=== PATIENT | female | born 1960 | race Caucasian/White ===

== ENCOUNTER → 2017-06-29 08:48 | Outpatient (CLI) | payer MEDICARE, MEDICAID, SELFPAY ==
--- NOTE | 2017-06-29 | DI.MRI.S_ITS ---
PROCEDURE: MR FOOT RT WO CON INDICATIONS: RIGHT FOOT FRACTURE OF SECOND METATARSAL BONE TECHNIQUE: Noncontrast sagittal T1 spin echo and T2 fast spin echo with fat saturation, long-axis T1 spin echo and T2 fast spin echo with fat saturation, short-axis T1 spin echo and T2 fast spin echo with fat saturation through the forefoot. COMPARISON: [facility], CR, XR FOOT 3+ VIEWS RIGHT, 01/27/2017, 10:00. FINDINGS: Image quality: Diagnostic. Bones and joints: No acute fracture, dislocation, or suspicious osseous lesion is identified involving the forefoot or midfoot structures. However, there are moderate degenerative changes noted involving the tarsometatarsal joints. There also are mild degenerative changes involving the tarsonavicular joint. There are mild degenerative changes present involving the 1st metatarsophalangeal joint. No hallux valgus deformity is evident. Bony alignment is within normal limits. No significant joint effusions are identified. Soft tissues: The visualized plantar foot muscles demonstrate normal signal and bulk. Visualized flexor and extensor tendons appear intact, without tenosynovitis. The distal insertions of the peroneus brevis and longus tendons appear intact. No loculated fluid collections or ganglion cysts are evident. No soft tissue masses are evident. The Lisfranc ligament is not well seen on this examination and may be scarring or completely torn. IMPRESSION: 1. Moderate degenerative changes of the midfoot joints. 2. No acute fracture. Dictated by: Dillon Flynn M.D. on 06/29/2017 at 15:26 Approved by: Dillon Flynn M.D. on 06/29/2017 at 15:31
== END ==
PROVIDERS: Family Provider Physician Assistant; PCP Physician Assistant; Visit Provider Podiatrist
DX: S92.321A Displaced fracture of second metatarsal bone, right foot, initial encounter for closed fracture (principal); M19.071 Primary osteoarthritis, right ankle and foot
CPT/HCPCS: 73718

== ENCOUNTER → 2018-03-03 07:00 | Outpatient (CLI) | payer MEDICARE, MEDICAID, SELFPAY ==
[2018-03-03 08:46] LABS: Add Manual Diff / Slide Review NO; Basophils Absolute Auto 0 /uL (0-100); Eosinophils Absolute Auto 0 /uL (0-450); Hematocrit 41.6 % (36-46); Hemoglobin 13.4 g/dL (12.0-16.0); Lymphocytes Absolute Auto 1500 /uL (1100-4500); Mean Corpuscular HGB Conc 32.3 % (30-36); Mean Corpuscular Hemoglobin 25.6 PG (26-34); Mean Corpuscular Volume 79.2 fL (80-100); Monocytes Absolute Auto 500 /uL (0-900); Monocytes Percent Auto 6.2 % (3-14); Neutrophils Absolute Auto 6100 /uL (1500-7000); Neutrophils Percent Auto 74.8 % (50-75); Platelet Count 452 X10^3/uL (150-400); Red Blood Cell Count 5.25 X10^6/uL (4.0-5.2); Red Cell Distribution Width 15.5 % (11.6-14.8); White Blood Cell Count 8.1 X10^3/uL (4.5-11.0)
[2018-03-03 09:43] LABS: Alanine Aminotransferase 31 IU/L (9-52); Albumin 4.5 g/dL (3.5-5.0); Albumin Globulin Ratio 1.6 (1.0-2.8); Alkaline Phosphatase 86 U/L (38-126); Aspartate Aminotransferase 18 IU/L (14-36); Bilirubin Total 0.3 mg/dL (0.2-1.3); Blood Urea Nitrogen 11 mg/dL (7-17); Calcium 9.8 mg/dL (8.4-10.2); Carbon Dioxide 27 mmol/L (22-32); Chloride 101 mmol/L (98-107); Cholesterol 175 mg/dL (140-199); Estimated Glomerular Filt Rate > 60.0 mL/min (>60); Globulin 2.8 g/dL (1.7-4.1); Glucose 102 mg/dL (70-100); HDL Cholesterol 46 mg/dL (40-60); HEMOLYSIS < 15 (0-50); LDL Cholesterol Calculated 104 mg/dL (<100); Potassium 4.6 mmol/L (3.4-5.1); Sodium 140 mmol/L (137-145); Total Protein 7.3 g/dL (6.3-8.2); Triglycerides 125 mg/dL (35-150); Uric Acid 4.6 mg/dL (2.5-6.2)
== END ==
PROVIDERS: Family Provider Physician Assistant; PCP Physician Assistant; Visit Provider Physician Assistant
DX: E78.5 Hyperlipidemia, unspecified (principal); E79.0 Hyperuricemia without signs of inflammatory arthritis and tophaceous disease
CPT/HCPCS: 36415; 80053; 80061; 84550; 85025

== ENCOUNTER 2018-04-29 09:46 | Emergency (ER) | payer MEDICARE, MEDICAID, SELFPAY ==
--- NOTE | 2018-04-29 09:30 | PC.NURSE ---
per Rosey Alberts pt possibly over medicated self. pt taking cbd oil to wean off vicodin, took both vicodin and cbd oil, then took baclofen, and unisome last michael. today per rosey pt c/o dizziness, feeling dehydrated, pale, slow speech.
[2018-04-29 09:48] VITALS: BP 144/70; PULSE 56; RESP 13; TEMP 36.4; O2SAT 100; BMI 31.1
--- NOTE | 2018-04-29 09:53 | ED.GENADULT ---
HPI - General Adult General Chief complaint: Dizziness Stated complaint: dizziness, accidental overdose of home meds Time Seen by Provider: 04/29/18 09:51 Source: patient Mode of arrival: wheelchair Limitations: no limitations History of Present Illness HPI narrative: A 57-year-old female sent over from her primary doctor's office for evaluation. She went to go see her primary provider today because this morning she was feeling ?dizzy? she states that last evening she took 17.5 mg of Vicodin, couple hours later she took CBD oil, couple hours later she took an [id number] sleeping aid which she states was equivalent to Unisom, couple hours later she took baclofen. She states she woke up at 0300 hr in the morning to use the restroom and she felt very ?dizzy? she states that it was a room spinning sensation. She did make it to the bathroom and urinated. She sat on the toilet and the symptoms resolved. When she got back into bed the symptoms returned. She did go back to sleep. Woke up again this morning and felt dizzy. Since that time she states that her symptoms have greatly improved. She reports no other symptoms at the time of the dizziness. Related Data Home Medications Medication Instructions Recorded Confirmed Doxylamine Succinate (#SLEEP AID) 25 mg PO BEDTIME PRN #0 12/10/11 04/29/18 fexofenadine 180 mg PO DAILY #0 05/06/17 04/29/18 pseudoephedrine HCl 30 mg PO DAILY #0 05/06/17 04/29/18 CBD Oil See Rx Instructions .ROUTE .COMPLEX 03/02/18 04/29/18 calcium carbonate-vitamin D3 600 1 cap PO DAILY 03/02/18 04/29/18 mg calcium-200 unit capsule multivitamin tablet 1 tab PO MOWEFR tab 03/02/18 04/29/18 allopurinol 100 mg PO QPM 04/29/18 04/29/18 aspirin 81 mg PO BEDTIME 04/29/18 04/29/18 hydrocodone-acetaminophen 1 tab PO QPM 04/29/18 04/29/18 ranitidine HCl [Zantac] 150 mg PO BID 04/29/18 04/29/18 Previous Rx's Medication Instructions Recorded baclofen 10 mg tablet 10 mg PO BEDTIME PRN #90 tab 10/07/17 conjugated estrogens 0.625 mg/gram 1 applictn VAGINAL 2XW #30 gram 10/29/17 vaginal cream Allergies Allergy/AdvReac Type Severity Reaction Status Date / Time Sulfa (Sulfonamide Allergy Severe Possible Verified 04/29/18 09:48 Antibiotics) due to [SULFA (SULFONAMIDE Celebrex ANTIBIOTICS)] allergy fenofibrate [FENOFIBRATE] Allergy Intermediate Rash Verified 04/29/18 09:48 latex Allergy Mild ITCHING Verified 04/29/18 09:48 red yeast rice Allergy Mild Rash Verified 04/29/18 09:48 [RED YEAST RICE] external genital area adhesive AdvReac Severe REDNESS, Verified 04/29/18 09:48 ITCHING AND BLISTERS FROM ADHESIVE TAPE montelukast AdvReac Intermediate SORES IN Verified 04/29/18 09:48 MY MOUTH AND NOSTRIL CAT DANDER Allergy Intermediate ITCHY Uncoded 04/29/18 09:48 WATER EYES, CONGESTION, RUNNY NOSE Review of Systems Constitutional Denies fever(s), Denies headache(s) and Denies weakness Eyes Denies blurry vision, Denies change in vision, Denies diplopia and Denies loss of vision ENT Ears, Nose, Mouth, and Throat: Reports vertigo, Reports dizziness, Reports dry mouth, Denies facial pain, Denies headache(s), Reports disequilibrium and Denies sore throat Cardiovascular Denies chest pain, Denies syncope, Denies rapid heart rate, Denies edema, Reports lightheadedness, Denies palpitations and Denies dyspnea Respiratory Denies cough and Denies dyspnea Gastrointestinal Gastrointestinal: Denies abdominal pain, Denies nausea and Denies vomiting Genitourinary Denies dysuria Musculoskeletal Denies myalgias, Denies arthralgias, Denies numbness and Denies tingling Integumentary/Breasts Denies rash Neurologic Denies confusion, Reports vertigo, Reports dizziness, Denies syncope, Denies headache(s), Denies focal weakness, Denies loss of vision, Denies numbness, Denies radicular pain, Denies restless legs, Denies seizure-like activity, Denies tingling, Denies paresthesias, Reports disequilibrium and Denies weakness Psychiatric Denies confusion Endocrine Denies palpitations Hematologic/Lymphatic Denies easy bleeding and Denies easy bruising Allergic/Immunologic Denies urticaria [facility] Medical History Hyperlipidemia (Chronic 04/26/14) Osteoarthritis, generalized (Chronic) Obesity (Chronic) Esophageal dysmotility (Chronic 08/28/15) Elevated uric acid in blood (Resolved) GERD (gastroesophageal reflux disease) (Chronic Unknown) Speech disturbance (Chronic Unknown) Allergic rhinitis due to cat hair (Resolved) Bursitis (Resolved Unknown) Cholecystitis (Resolved Unknown) History of migraine (Resolved ~2001) Plantar fasciitis (Resolved Unknown) Smallpox (Resolved) Surgical History Hx of cholecystectomy (Resolved Unknown) Hx of knee surgery (Resolved Unknown) Hx of total hysterectomy (Resolved Unknown) History of tonsillectomy Social History Smoking Status: Former smoker Tobacco: How many years used: 13 second hand exposure: No alcohol intake: current (only on special occasions.) substance use type: does not use Social History Smoking Status: Former smoker Tobacco: How many years used: 13 second hand exposure: No alcohol intake: current (only on special occasions.) substance use type: does not use Exam Initial Vital Signs Initial Vital Signs: Vital Signs Temperature 97.6 F 04/29/18 09:48 Pulse Rate 56 L 04/29/18 09:48 Respiratory Rate 13 04/29/18 09:48 Blood Pressure 144/70 H 04/29/18 09:48 Pulse Oximetry 100 04/29/18 09:48 Const General: cooperative, healthy appearing, comfortable, well developed, well groomed and No acute distress Orientation: alert, awake and oriented x3 HENMT Head: normal to inspection, normocephalic and atraumatic Nose: external nose normal Face and sinus: normal facial exam Mouth: oral mucosae normal Eyes Pupils: PERRL EOM: EOM intact bilaterally Resp Effort & Inspection: normal respiratory effort Auscultation: clear to auscultation bilaterally Cardio Rate: regular rate Rhythm: regular rhythm Pulses: radial pulses present GI Inspection: non-distended Palpation: soft and No firm Skin Lesions: no lesions Rashes: no rashes Neuro General: alert, awake and oriented x3 Cranial Nerves: CN's II-XI intact bilaterally Cognition: normal cognition Speech: speech normal Motor: muscle tone normal throughout Sensory Exam: no sensory deficits noted Coordination: [id number] test normal and [id number]-ry-[id number] test normal Extrem General: normal to inspection and capillary refill normal Psych Appearance: grossly normal and well kempt Scores GCS [place] coma scale eye opening: Spontaneous [place] coma scale verbal response: Orientated [place] coma scale motor response: Obey commands [place] coma scale total score: 15 NIH Stroke Scale Level of Conciousness: Alert, keenly responsive Ask month/age: Answers both questions correctly. Open/close eyes, close hand: Performs both tasks correctly Best gaze horizontal: Normal Visual marie: No visual loss Facial palsy: Normal symetrical movement Left arm drift: No drift for full 10 sec Right arm drift: No drift for full 10 sec Left leg drift: No drift for full 10 sec Right leg drift: No drift for full 10 sec Limb ataxia: Absent Sensory on face/arms/legs: Normal, no sensory loss Best language: No aphasia, normal Dysarthria: Normal Extinction or inattention: No abnormality Total NIH Stroke scale score: 0 Course Orders Ordered: ED Orders 04/29/18 09:46 EKG-12 Lead Stat 04/29/18 11:27 Acetaminophen Stat Complete Blood Count AUTO DIFF Stat Comprehensive Metabolic Panel Stat Ethanol (ETOH) Stat Lipase Stat Troponin I Stat Discontinued Medications Sodium Chloride (Normal Saline 0.9%) 1,000 mls @ 1,000 mls/hr IV BOLUS ONE Stop: 04/29/18 10:50 Last Admin: 04/29/18 11:15 Dose: Not Given Vital Signs - 8 hr 04/29/18 09:48 04/29/18 11:42 04/29/18 12:17 Temperature 97.6 F Pulse Rate 56 L 59 L 64 Respiratory Rate 13 18 16 Blood Pressure 144/70 H Blood Pressure [Right Arm] 115/77 106/76 Pulse Oximetry 100 96 98 Medical Decision Making Lab Data Lab results reviewed: Yes I reviewed the patient's lab results. Result diagrams: 04/29/18 11:27 04/29/18 11:27 Lab Results 04/29/18 04/29/18 Range/Units 11:27 11:27 WBC 6.7 (4.5-11.0) X10^3/uL RBC 5.05 (4.0-5.2) X10^6/uL Hgb 12.7 (12.0-16.0) g/dL Hct 39.3 (36-46) % MCV 77.9 L (80-100) fL MCH 25.2 L (26-34) PG MCHC 32.4 (30-36) % RDW 15.6 H (11.6-14.8) % Plt Count 406 H (150-400) X10^3/uL Neut % (Auto) 77.4 H (50-75) % Lymph % (Auto) 16.6 L (25-40) % [place] % (Auto) 5.8 (3-14) % Eos % (Auto) 0.0 L (2-4) % Baso % (Auto) 0.2 (0-2) % Neut # (Auto) 5200 (3104-3700) /uL Lymph # (Auto) 1100 (3060-2026) /uL [place] # (Auto) 400 (0-900) /uL Eos # (Auto) 0 (0-450) /uL Baso # (Auto) 0 (0-100) /uL Sodium 138 (137-145) mmol/L Potassium 3.9 (3.4-5.1) mmol/L Chloride 99 (98-107) mmol/L Carbon Dioxide 26 (22-32) mmol/L BUN 7 (7-17) mg/dL Creatinine 0.50 L (0.52-1.04) mg/dL Estimated GFR > 60.0 (>60) mL/min BUN/Creatinine Ratio 14.0 (6-22) Glucose 91 (70-100) mg/dL Calcium 9.5 (8.4-10.2) mg/dL Total Bilirubin 0.6 (0.2-1.3) mg/dL AST 18 (14-36) IU/L ALT 30 (9-52) IU/L Alkaline Phosphatase 83 (38-126) U/L Troponin I < 0.012 (0.01-0.034) ng/mL Total Protein 7.6 (6.3-8.2) g/dL Albumin 4.4 (3.5-5.0) g/dL Globulin 3.2 (1.7-4.1) g/dL Albumin/Globulin Ratio 1.4 (1.0-2.8) Lipase 108 (23-300) U/L Acetaminophen < 10 L (10-30) ug/mL Ethyl Alcohol < 10 mg/dL ECG Data Attestation: I personally reviewed and interpreted this ECG as follows: Prior ECG tracings: not available for review Interpretation: Sinus bradycardia Ventricular rate of 52 Normal axis Normal QRS Normal QTC Nonspecific ST T wave changes MDM Narrative Medical decision making narrative: The patient initially requested IV fluids but then asked if we could not do an IV in that she could orally hydrate. She was able to tolerate oral intake. Her labs are unremarkable. She was able to ambulate around the emergency department to the bathroom with minimal problems. She states she feels much better than when she did last evening. Will hold on further workup for now. I do suspect that her symptoms were related to the multiple sedating medication that she took last evening. Patient was instructed to stop her reduce these medications. She was given return precautions. She expressed understanding and agreement with plan. Discharge Plan Departure Patient Disposition: Home Clinical Impression: Dizziness Instructions: DI for Dizziness-Nonvertigo Activity Restrictions/Additional Instructions: I do recommend that you to limit the amount of sedating medications that your taking. Contact your primary care doctor for follow-up. Return to the emergency department for any new or worsening symptoms Prescriptions: No Action multivitamin tablet 1 tab PO MOWEFR RF: 0 Calcium 600 + D(3) 600 mg calcium- 200 unit Capsule 1 cap PO DAILY RF: 0 CBD Oil See Patient Comments .ROUTE .COMPLEX RF: 0 Doxylamine Succinate (#SLEEP AID) 25 mg PO BEDTIME PRN (Reason: Insomnia) Qty: 0 RF: 0 fexofenadine 180 MG tablet 180 mg PO DAILY Qty: 0 RF: 0 pseudoephedrine HCl 30 MG tablet 30 mg PO DAILY Qty: 0 RF: 0 baclofen 10 mg tablet 10 mg PO BEDTIME PRN (Reason: muscle spasm) Qty: 90 RF: 1 conjugated estrogens [Premarin] 0.625 mg/gram cream 1 applictn Vaginal 2XW Qty: 30 RF: 3 allopurinol 100 mg tablet 100 mg PO QPM RF: 0 ranitidine HCl [Zantac] 150 mg tablet 150 mg PO BID RF: 0 aspirin 81 mg Tablet,Delayed Release (Dr/Ec) 81 mg PO BEDTIME RF: 0 hydrocodone-acetaminophen 7.5-325 mg tablet 1 tab PO QPM RF: 0 Referrals: Juliana Alberts PA-C [Primary Care Provider] -
--- NOTE | 2018-04-29 11:12 | PC.NURSE ---
Went in to establish PIV, pt questioned if it was necessary. Educated pt, pt states she would prefer blood draw only. Spoke with Dr. Laureano. He agrees with plan. Pt given PO fluids.
[2018-04-29 11:37] LABS: Add Manual Diff / Slide Review NO; Basophils Absolute Auto 0 /uL (0-100); Basophils Percent Auto 0.2 % (0-2); Eosinophils Absolute Auto 0 /uL (0-450); Hematocrit 39.3 % (36-46); Hemoglobin 12.7 g/dL (12.0-16.0); Lymphocytes Absolute Auto 1100 /uL (1100-4500); Lymphocytes Percent Auto 16.6 % (25-40); Mean Corpuscular HGB Conc 32.4 % (30-36); Mean Corpuscular Hemoglobin 25.2 PG (26-34); Mean Corpuscular Volume 77.9 fL (80-100); Monocytes Absolute Auto 400 /uL (0-900); Monocytes Percent Auto 5.8 % (3-14); Neutrophils Absolute Auto 5200 /uL (1500-7000); Neutrophils Percent Auto 77.4 % (50-75); Platelet Count 406 X10^3/uL (150-400); Red Blood Cell Count 5.05 X10^6/uL (4.0-5.2); Red Cell Distribution Width 15.6 % (11.6-14.8); White Blood Cell Count 6.7 X10^3/uL (4.5-11.0)
[2018-04-29 11:42] VITALS: BP 115/77; PULSE 59; RESP 18; O2SAT 96
[2018-04-29 11:47] LABS: Acetaminophen < 10 ug/mL (10-30); Alanine Aminotransferase 30 IU/L (9-52); Albumin 4.4 g/dL (3.5-5.0); Albumin Globulin Ratio 1.4 (1.0-2.8); Alkaline Phosphatase 83 U/L (38-126); Aspartate Aminotransferase 18 IU/L (14-36); Bilirubin Total 0.6 mg/dL (0.2-1.3); Blood Urea Nitrogen 7 mg/dL (7-17); Calcium 9.5 mg/dL (8.4-10.2); Carbon Dioxide 26 mmol/L (22-32); Chloride 99 mmol/L (98-107); Estimated Glomerular Filt Rate > 60.0 mL/min (>60); Ethanol (ETOH) < 10 mg/dL; Globulin 3.2 g/dL (1.7-4.1); Glucose 91 mg/dL (70-100); HEMOLYSIS < 15 (0-50); Lipase 108 U/L (23-300); Potassium 3.9 mmol/L (3.4-5.1); Sodium 138 mmol/L (137-145); Total Protein 7.6 g/dL (6.3-8.2)
[2018-04-29 11:58] LABS: Troponin I < 0.012 ng/mL (0.01-0.034)
[2018-04-29 12:17] VITALS: BP 106/76; PULSE 64; RESP 16; O2SAT 98
[2018-04-29 13:15] VITALS: BP 125/74; PULSE 75; RESP 15; O2SAT 97
== END 2018-04-29 13:16 | disposition home or self-care (01) ==
PROVIDERS: Emergency Provider Emergency Medicine; PCP Physician Assistant
DX: R42 Dizziness and giddiness (principal); T50.991A Poisoning by other drugs, medicaments and biological substances, accidental (unintentional), initial encounter
CPT/HCPCS: 36415; 80053; 80320; 80329; 83690; 84484; 85025; 93005; 99283; 99284; G0480

== ENCOUNTER → 2018-05-20 09:56 | Outpatient (CLI) | payer MEDICARE, MEDICAID, SELFPAY ==
--- NOTE | 2018-05-20 | DI.MG.S_ITS ---
BILATERAL DIGITAL SCREENING MAMMOGRAM 3D/2D WITH CAD: 05/20/2018 CLINICAL: Routine screening. Comparison is made to exams dated: 05/08/2017 mammogram, 05/15/2010 mammogram - [facility], and 11/23/2001 mammogram - [facility]. There are scattered fibroglandular elements in both breasts. Current study was also evaluated with a Computer Aided Detection (CAD) system. There are benign calcifications in both breasts. No significant masses, calcifications, or other findings are seen in either breast. There has been no significant interval change. IMPRESSION: There is no mammographic evidence of malignancy. A 1 year screening mammogram is recommended. This exam was interpreted at Station ID: [id number]. NOTE: For mammograms, a report in lay terms will be sent to the patient. Approximately 15% of breast malignancies will not be visualized mammographically. In the management of a palpable breast mass, a negative mammogram must not discourage biopsy of a clinically suspicious lesion. Electronically Signed By: Clayton cortez/cely:05/20/2018 12:06:36 letter sent: Normal Exam ACR BI-RADS Category 2: Benign Finding(s) 3342F
[2018-05-23 20:50] LABS: Fecal Immunochemical Test NOT DETECTED (NOT DETECTED)
== END ==
PROVIDERS: PCP Physician Assistant; Visit Provider Physician Assistant
DX: Z12.31 Encounter for screening mammogram for malignant neoplasm of breast (principal); Z12.11 Encounter for screening for malignant neoplasm of colon
CPT/HCPCS: 77063; 77067; 82274

== ENCOUNTER → 2018-06-08 09:57 | Outpatient (CLI) | payer MEDICARE, MEDICAID, SELFPAY ==
[2018-06-08 11:12] LABS: Add Manual Diff / Slide Review NO; Basophils Absolute Auto 0 /uL (0-100); Eosinophils Absolute Auto 0 /uL (0-450); Hematocrit 38.1 % (36-46); Hemoglobin 12.7 g/dL (12.0-16.0); Lymphocytes Absolute Auto 1300 /uL (1100-4500); Lymphocytes Percent Auto 20.3 % (25-40); Mean Corpuscular HGB Conc 33.2 % (30-36); Mean Corpuscular Hemoglobin 25.6 PG (26-34); Mean Corpuscular Volume 77.1 fL (80-100); Monocytes Absolute Auto 500 /uL (0-900); Monocytes Percent Auto 7.4 % (3-14); Neutrophils Absolute Auto 4500 /uL (1500-7000); Neutrophils Percent Auto 72.3 % (50-75); Platelet Count 431 X10^3/uL (150-400); Red Blood Cell Count 4.95 X10^6/uL (4.0-5.2); Red Cell Distribution Width 16.9 % (11.6-14.8); White Blood Cell Count 6.2 X10^3/uL (4.5-11.0)
== END ==
PROVIDERS: PCP Physician Assistant; Visit Provider Allergy & Immunology
DX: L23.89 Allergic contact dermatitis due to other agents (principal); R79.89 Other specified abnormal findings of blood chemistry
CPT/HCPCS: 85025; 86003

== ENCOUNTER 2018-06-20 11:25 | Emergency (ER) | payer MEDICARE, MEDICAID, SELFPAY ==
[2018-06-20 12:06] VITALS: BP 122/78; PULSE 74; RESP 13; TEMP 36.9; O2SAT 97
[2018-06-20 13:30] VITALS: BP 104/67; PULSE 76; RESP 16; O2SAT 100
--- NOTE | 2018-06-20 13:55 | ED.DIZZY ---
HPI - Dizziness <Daisy Renner, [employer]-BC - Last Filed: 06/20/18 22:16> General Chief Complaint: Dizziness Stated Complaint: Feeling dizzy, thinks meds Time Seen by Provider: 06/20/18 13:40 Source: patient Mode of arrival: ambulatory Limitations: no limitations History of Present Illness HPI Narrative: the patient is a 57-year-old female former smoker who presents with a chief complaint of dizziness and not feeling well since April. She states she thinks it is related to her allergy medications. She was recently started on a burst of prednisone and is on day 4. She states that she started taking activated charcoal pills in order to help detox for medications from her system yesterday. She complains of a generalized foggy feeling. She states that she did not have a specific impetus for her urgency department visit today. Rather she is just frustrated with not feeling well and being very anxious for the past several months since this started. She has followed up with her chemist enzymes several times, but is not seen her primary care provider since onset of this several months ago. She denies any chest pain, but does state some chest discomfort earlier today, which she attributes to anxiety. she denies any dysuria urgency or frequency. She denies any shortness of breath or congestion. She states that the room was not spinning. She denies any syncopal or near syncopal episodes. Related Data Home Medications Medication Instructions Recorded Confirmed CBD Oil See Rx Instructions .ROUTE .COMPLEX 03/02/18 06/25/18 calcium carbonate-vitamin D3 600 1 cap PO DAILY 03/02/18 06/25/18 mg calcium-200 unit capsule multivitamin tablet 1 tab PO MOWEFR tab 03/02/18 06/25/18 allopurinol 100 mg PO QPM 04/29/18 06/25/18 aspirin 81 mg PO BEDTIME 04/29/18 06/25/18 hydrocodone-acetaminophen 1 tab PO QPM 04/29/18 06/25/18 ranitidine HCl [Zantac] 150 mg PO BID 04/29/18 06/25/18 melatonin 5 mg capsule 5 mg PO BEDTIME cap 06/23/18 06/25/18 Previous Rx's Medication Instructions Recorded conjugated estrogens 0.625 mg/gram 1 applictn VAGINAL 2XW #30 gram 05/12/18 vaginal cream dexlansoprazole 30 mg 30 mg PO DAILY #30 cap 06/24/18 capsule,biphase delayed release Allergies Allergy/AdvReac Type Severity Reaction Status Date / Time Sulfa (Sulfonamide Allergy Severe Possible Verified 06/25/18 16:05 Antibiotics) due to [SULFA (SULFONAMIDE Celebrex ANTIBIOTICS)] allergy fenofibrate [FENOFIBRATE] Allergy Intermediate Rash Verified 06/25/18 16:05 red yeast rice Allergy Mild Rash Verified 06/25/18 16:05 [RED YEAST RICE] external genital area adhesive AdvReac Severe REDNESS, Verified 06/25/18 16:05 ITCHING AND BLISTERS FROM ADHESIVE TAPE montelukast AdvReac Intermediate SORES IN Verified 06/25/18 16:05 MY MOUTH AND NOSTRIL latex AdvReac Mild ITCHING Verified 06/25/18 16:05 CAT DANDER Allergy Intermediate ITCHY Uncoded 06/25/18 16:05 WATER EYES, CONGESTION, RUNNY NOSE Tree pollen Allergy Intermediate Birch/Anahi Uncoded 06/25/18 16:05 trees - Runny/Itchy nose/Eye irritation. Review of Systems <NINFA Tol[place] - Last Filed: 06/20/18 22:16> Review of Systems GENERAL: See HPI HEENT: Denies sinus pain, ear pain, sore throat, difficulty swallowing, dizziness. RESPIRATORY: Denies dyspnea, cough, wheezing, hemoptysis, sputum. CARDIOVASCULAR: Denies chest pain, palpitations, orthopnea, edema, GASTROINTESTINAL: Denies nausea, vomiting, abdominal pain, diarrhea, constipation, melena. : Denies dysuria, frequency, incontinence, hematuria, urinary retention. MUSCULOSKELETAL: denies weakness, joint pain, or bony pain SKIN: Denies rash, skin lesions, or other NEUROLOGIC: Denies weakness, headache, numbness, change in speech, confusion, seizures, incoordination. PSYCHIATRIC: No concerning psychosocial issues. 12 point review of systems is negative except for those stated above PFSH <NINFA [place] - Last Filed: 06/20/18 22:16> Medical History Hyperlipidemia (Chronic 04/26/14) Osteoarthritis, generalized (Chronic) Obesity (Chronic) Esophageal dysmotility (Chronic 07/12/16) Elevated uric acid in blood (Resolved) GERD (gastroesophageal reflux disease) (Chronic Unknown) Speech disturbance (Chronic Unknown) Allergic rhinitis due to cat hair (Resolved) Bursitis (Resolved Unknown) Cholecystitis (Resolved Unknown) History of migraine (Resolved ~2001) Plantar fasciitis (Resolved Unknown) Smallpox (Resolved) Surgical History Hx of cholecystectomy (Resolved Unknown) Hx of knee surgery (Resolved Unknown) Hx of total hysterectomy (Resolved Unknown) History of tonsillectomy Social History Smoking Status: Former smoker Tobacco: How many years used: 13 second hand exposure: No alcohol intake: current (only on special occasions.) substance use type: does not use Social History Smoking Status: Former smoker Tobacco: How many years used: 13 second hand exposure: No alcohol intake: current substance use type: does not use Exam <NINFA [place] - Last Filed: 06/20/18 22:16> Narrative Exam Narrative: GENERAL: This is a well-nourished, well-developed patient, lying on stretcher appears anxious HEAD: Atraumatic. Normocephalic. No temporal or scalp tenderness. EYES: Pupils equal round and reactive. Extraocular motions intact. No scleral icterus. No injection or drainage. ENT: Nose without bleeding, purulent drainage or septal hematoma. Throat without erythema, tonsillar hypertrophy or exudate. Uvula midline. Airway patent. NECK: Trachea midline. No JVD or lymphadenopathy. Supple, nontender, no meningeal signs. CARDIOVASCULAR: Regular rate and rhythm without murmurs, gallops, or rubs. RESPIRATORY: Clear to auscultation. Breath sounds equal bilaterally. No wheezes, rales, or rhonchi. No cough. No increased respiratory effort no accessory muscle use. GASTROINTESTINAL: Abdomen soft, non-tender, nondistended. No hepato-splenomegaly, or palpable masses. No guarding. EXTREMITIES: No clubbing, cyanosis, or edema. No joint tenderness, effusion, or edema noted. BACK: Nontender without deformity or crepitance. No flank tenderness. NEURO: AOx3. Stable gait. Strength is equal upper and lower extremities bilaterally. SKIN: No rash or erythema. Initial Vital Signs Initial Vital Signs: Vital Signs Temperature 98.5 F 06/20/18 12:06 Pulse Rate 74 06/20/18 12:06 Respiratory Rate 13 06/20/18 12:06 Blood Pressure 122/78 06/20/18 12:06 Pulse Oximetry 97 06/20/18 12:06 <Daisy Haines DO - Last Filed: 06/26/18 19:03> Initial Vital Signs Initial Vital Signs: Vital Signs Temperature 98.5 F 06/20/18 12:06 Pulse Rate 74 06/20/18 12:06 Respiratory Rate 13 06/20/18 12:06 Blood Pressure 122/78 06/20/18 12:06 Pulse Oximetry 97 06/20/18 12:06 Course <NINFA [place] - Last Filed: 06/20/18 22:16> Orders Ordered: ED Orders 06/20/18 14:25 Complete Blood Count AUTO DIFF Stat Comprehensive Metabolic Panel Stat Partial Thromboplastin Time Stat Prothrombin Time INR Stat Troponin & CK Cardiac Panel Stat Vital Signs - 8 hr 06/20/18 14:33 Pulse Rate 65 Respiratory Rate 15 Blood Pressure [Left Arm] 130/69 Pulse Oximetry 100 <Daisy Haines DO - Last Filed: 06/26/18 19:03> Orders Ordered: ED Orders 06/20/18 14:25 Complete Blood Count AUTO DIFF Stat Comprehensive Metabolic Panel Stat Partial Thromboplastin Time Stat Prothrombin Time INR Stat Troponin & CK Cardiac Panel Stat Vital Signs - 8 hr 06/20/18 14:33 Pulse Rate 65 Respiratory Rate 15 Blood Pressure [Left Arm] 130/69 Pulse Oximetry 100 MDM - Dizziness <NINFA [place] Last Filed: 06/20/18 22:16> Lab Data Result diagrams: 06/20/18 14:25 06/20/18 14:25 Lab Results 06/20/18 06/20/18 06/20/18 Range/Units 14:25 14:25 14:25 WBC 9.1 (4.5-11.0) X10^3/uL RBC 5.12 (4.0-5.2) X10^6/uL Hgb 12.7 (12.0-16.0) g/dL Hct 40.0 (36-46) % MCV 78.1 L (80-100) fL MCH 24.9 L (26-34) PG MCHC 31.8 (30-36) % RDW 16.8 H (11.6-14.8) % Plt Count 448 H (150-400) X10^3/uL Neut % (Auto) 90.2 H (50-75) % Lymph % (Auto) 7.5 L (25-40) % Clinch % (Auto) 2.2 L (3-14) % Eos % (Auto) 0.0 L (2-4) % Baso % (Auto) 0.1 (0-2) % Neut # (Auto) 8200 H (6649-4390) /uL Lymph # (Auto) 700 L (3216-1472) /uL Clinch # (Auto) 200 (0-900) /uL Eos # (Auto) 0 (0-450) /uL Baso # (Auto) 0 (0-100) /uL PT 11.3 (10.1-12.7) SECONDS INR 1.0 (0.9-1.3) APTT 34 (26.4-36.2) SECONDS Sodium 141 (137-145) mmol/L Potassium 3.9 (3.4-5.1) mmol/L Chloride 104 (98-107) mmol/L Carbon Dioxide 26 (22-32) mmol/L BUN 10 (7-17) mg/dL Creatinine 0.50 L (0.52-1.04) mg/dL Estimated GFR > 60.0 (>60) mL/min BUN/Creatinine Ratio 20.0 (6-22) Glucose 134 H (70-100) mg/dL Calcium 9.5 (8.4-10.2) mg/dL Total Bilirubin 0.3 (0.2-1.3) mg/dL AST 18 (14-36) IU/L ALT 25 (9-52) IU/L Alkaline Phosphatase 85 (38-126) U/L Total Creatine Kinase 61 (30-135) U/L CK-MB (CK-2) TNP CK-MB (CK-2) Rel Index TNP Troponin I < 0.012 (0.01-0.034) ng/mL Total Protein 7.4 (6.3-8.2) g/dL Albumin 4.3 (3.5-5.0) g/dL Globulin 3.1 (1.7-4.1) g/dL Albumin/Globulin Ratio 1.4 (1.0-2.8) Urine Dip Bedside Urine Glucose Negative Bedside Urine Bilirubin - Negative Bedside Urine Ketone +/- 5 Urine Specific [place] 1.010 Bedside Urine Occult Blood - Negative Bedside Urine pH 6.0 Bedside Urine Protein - Negative Bedside Urine Urobilinogen - Negative Bedside Urine Nitrite - Negative Bedside Urine Leukocytes - Negative Esterase MDM Narrative Medical decision making narrative: The patient is a 57-year-old female presents with a chief complaint of dizziness that has been going on for several months. She has seen her chemist enzymes as well as an ENT about this. She has normal lab work initially, stable vital signs and is hemodynamically stable. she has troponin negative. I did discuss at length with her obtaining further imaging and/or lab work given the duration of her symptoms. She states she would rather follow up with primary care provider. I am okay with this as she is hemodynamically stable and neurologically intact. discussed at length return precautions of worsening, concerning chest pain or shortness of breath. discussed importance of following up with primary care provider. Patient has no questions or concerns upon discharge and ambulate steadily out. <Daisy Haines, DO - Last Filed: 06/26/18 19:03> Lab Data Lab Results 06/20/18 06/20/18 06/20/18 Range/Units 14:25 14:25 14:25 WBC 9.1 (4.5-11.0) X10^3/uL RBC 5.12 (4.0-5.2) X10^6/uL Hgb 12.7 (12.0-16.0) g/dL Hct 40.0 (36-46) % MCV 78.1 L (80-100) fL MCH 24.9 L (26-34) PG MCHC 31.8 (30-36) % RDW 16.8 H (11.6-14.8) % Plt Count 448 H (150-400) X10^3/uL Neut % (Auto) 90.2 H (50-75) % Lymph % (Auto) 7.5 L (25-40) % Clinch % (Auto) 2.2 L (3-14) % Eos % (Auto) 0.0 L (2-4) % Baso % (Auto) 0.1 (0-2) % Neut # (Auto) 8200 H (0313-3811) /uL Lymph # (Auto) 700 L (1625-8826) /uL Clinch # (Auto) 200 (0-900) /uL Eos # (Auto) 0 (0-450) /uL Baso # (Auto) 0 (0-100) /uL PT 11.3 (10.1-12.7) SECONDS INR 1.0 (0.9-1.3) APTT 34 (26.4-36.2) SECONDS Sodium 141 (137-145) mmol/L Potassium 3.9 (3.4-5.1) mmol/L Chloride 104 (98-107) mmol/L Carbon Dioxide 26 (22-32) mmol/L BUN 10 (7-17) mg/dL Creatinine 0.50 L (0.52-1.04) mg/dL Estimated GFR > 60.0 (>60) mL/min BUN/Creatinine Ratio 20.0 (6-22) Glucose 134 H (70-100) mg/dL Calcium 9.5 (8.4-10.2) mg/dL Total Bilirubin 0.3 (0.2-1.3) mg/dL AST 18 (14-36) IU/L ALT 25 (9-52) IU/L Alkaline Phosphatase 85 (38-126) U/L Total Creatine Kinase 61 (30-135) U/L CK-MB (CK-2) TNP CK-MB (CK-2) Rel Index TNP Troponin I < 0.012 (0.01-0.034) ng/mL Total Protein 7.4 (6.3-8.2) g/dL Albumin 4.3 (3.5-5.0) g/dL Globulin 3.1 (1.7-4.1) g/dL Albumin/Globulin Ratio 1.4 (1.0-2.8) Urine Dip Bedside Urine Glucose Negative Bedside Urine Bilirubin - Negative Bedside Urine Ketone +/- 5 Urine Specific [place] 1.010 Bedside Urine Occult Blood - Negative Bedside Urine pH 6.0 Bedside Urine Protein - Negative Bedside Urine Urobilinogen - Negative Bedside Urine Nitrite - Negative Bedside Urine Leukocytes - Negative Esterase Discharge Plan Departure Patient Disposition: Home Clinical Impression: Dizziness Discharge Date/Time: 06/20/18 16:12 Interventions: ED Discharge Assessment Last Done: 06/20/18 16:12 Instructions: DI for Dizziness-Nonvertigo Activity Restrictions/Additional Instructions: Your lab work came back generally normal today. Please follow up with primary care provider regarding all of her antihistamines and other medication. Antihistamines and prednisone can make you feel up it off. Please come back to the emergency department for any acute concerns such as chest pain shortness of breath concern of heart attack or stroke. Please follow up with your primary care provider soon as possible. Prescriptions: No Action multivitamin tablet 1 tab PO MOWEFR RF: 0 Calcium 600 + D(3) 600 mg calcium- 200 unit Capsule 1 cap PO DAILY RF: 0 CBD Oil See Patient Comments .ROUTE .COMPLEX RF: 0 Premarin 0.625 mg/gram cream 1 applictn Vaginal 2XW Qty: 30 RF: 3 dexlansoprazole 30 mg capsule,biphase delayed releas 30 mg PO DAILY Qty: 30 RF: 1 melatonin 5 mg capsule 5 mg PO BEDTIME RF: 0 allopurinol 100 mg tablet 100 mg PO QPM RF: 0 ranitidine HCl [Zantac] 150 mg tablet 150 mg PO BID RF: 0 aspirin 81 mg Tablet,Delayed Release (Dr/Ec) 81 mg PO BEDTIME RF: 0 hydrocodone-acetaminophen 7.5-325 mg tablet 1 tab PO QPM RF: 0 Referrals: Juliana Alberts PA-C [Primary Care Provider] - <Daisy Haines DO - Last Filed: 06/26/18 19:03> Cosign ED Attending Elenaature Attestation: I was immediately available in the department for consultation. This documentation has been reviewed and I agree with assessment and plan. Supervised by Daisy Haines DO
--- NOTE | 2018-06-20 13:58 | ED_ITS ---
HPI - Dizziness <Daisy Renner, CHILD CARE CENTER ASSISTANT DIRECTOR-BC - Last Filed: 06/20/18 22:16> General Chief Complaint: Dizziness Stated Complaint: Feeling dizzy, thinks meds Time Seen by Provider: 06/20/18 13:40 Source: patient Mode of arrival: ambulatory Limitations: no limitations History of Present Illness HPI Narrative: the patient is a 57-year-old female former smoker who presents with a chief complaint of dizziness and not feeling well since April. She states she thinks it is related to her allergy medications. She was recently started on a burst of prednisone and is on day 4. She states that she started taking activated charcoal pills in order to help detox for medications from her system yesterday. She complains of a generalized foggy feeling. She states that she did not have a specific impetus for her urgency department visit today. Rather she is just frustrated with not feeling well and being very anxious for the past several months since this started. She has followed up with her guillermina rgist several times, but is not seen her primary care provider since onset of this several months ago. She denies any chest pain, but does state some chest discomfort earlier today, which she attributes to anxiety. she denies any dysuria urgency or frequency. She denies any shortness of breath or congestion. She states that the room was not spinning. She denies any syncopal or near syncopal episodes. Related Data Home Medications Medication Instructions Recorded Confirmed CBD Oil See Rx Instructions .ROUTE .COMPLEX 03/02/18 06/25/18 calcium carbonate-vitamin D3 600 1 cap PO DAILY 03/02/18 06/25/18 mg calcium-200 unit capsule multivitamin tablet 1 tab PO MOWEFR tab 03/02/18 06/25/18 allopurinol 100 mg PO QPM 04/29/18 06/25/18 aspirin 81 mg PO BEDTIME 04/29/18 06/25/18 hydrocodone-acetaminophen 1 tab PO QPM 04/29/18 06/25/18 ranitidine HCl [Zantac] 150 mg PO BID 04/29/18 06/25/18 melatonin 5 mg capsule 5 mg PO BEDTIME cap 06/23/18 06/25/18 Previous Rx's Medication Instructions Recorded conjugated estrogens 0.625 mg/gram 1 applictn VAGINAL 2XW #30 gram 05/12/18 vaginal cream dexlansoprazole 30 mg 30 mg PO DAILY #30 cap 06/24/18 capsule,biphase delayed release Allergies Allergy/AdvReac Type Severity Reaction Status Date / Time Sulfa (Sulfonamide Allergy Severe Possible Verified 06/25/18 16:05 Antibiotics) due to [SULFA (SULFONAMIDE Celebrex ANTIBIOTICS)] allergy fenofibrate [FENOFIBRATE] Allergy Intermediate Rash Verified 06/25/18 16:05 red yeast rice Allergy Mild Rash Verified 06/25/18 16:05 [RED YEAST RICE] external genital area adhesive AdvReac Severe REDNESS, Verified 06/25/18 16:05 ITCHING AND BLISTERS FROM ADHESIVE TAPE montelukast AdvReac Intermediate SORES IN Verified 06/25/18 16:05 MY MOUTH AND NOSTRIL latex AdvReac Mild ITCHING Verified 06/25/18 16:05 CAT DANDER Allergy Intermediate ITCHY Uncoded 06/25/18 16:05 WATER EYES, CONGESTION, RUNNY NOSE Tree pollen Allergy Intermediate Birch/[place] Uncoded 06/25/18 16:05 trees - Runny/Itchy nose/Eye irritation. Review of Systems <NINFA [place] - Last Filed: 06/20/18 22:16> Review of Systems GENERAL: See HPI HEENT: Denies sinus pain, ear pain, sore throat, difficulty swallowing, dizziness. RESPIRATORY: Denies dyspnea, cough, wheezing, hemoptysis, sputum. CARDIOVASCULAR: Denies chest pain, palpitations, orthopnea, edema, GASTROINTESTINAL: Denies nausea, vomiting, abdominal pain, diarrhea, constipation, melena. : Denies dysuria, frequency, incontinence, hematuria, urinary retention. MUSCULOSKELETAL: denies weakness, joint pain, or bony pain SKIN: Denies rash, skin lesions, or other NEUROLOGIC: Denies weakness, headache, numbness, change in speech, confusion, seizures, incoordination. PSYCHIATRIC: No concerning psychosocial issues. 12 point review of systems is negative except for those stated above PFSH <NINFA [place] - Last Filed: 06/20/18 22:16> Medical History Hyperlipidemia (Chronic 04/26/14) Osteoarthritis, generalized (Chronic) Obesity (Chronic) Esophageal dysmotility (Chronic 08/28/15) Elevated uric acid in blood (Resolved) GERD (gastroesophageal reflux disease) (Chronic Unknown) Speech disturbance (Chronic Unknown) Allergic rhinitis due to cat hair (Resolved) Bursitis (Resolved Unknown) Cholecystitis (Resolved Unknown) History of migraine (Resolved ~2001) Plantar fasciitis (Resolved Unknown) Smallpox (Resolved) Surgical History Hx of cholecystectomy (Resolved Unknown) Hx of knee surgery (Resolved Unknown) Hx of total hysterectomy (Resolved Unknown) History of tonsillectomy Social History Smoking Status: Former smoker Tobacco: How many years used: 13 second hand exposure: No alcohol intake: current (only on special occasions.) substance use type: does not use Social History Smoking Status: Former smoker Tobacco: How many years used: 13 second hand exposure: No alcohol intake: current substance use type: does not use Exam <NINFA [place] - Last Filed: 06/20/18 22:16> Narrative Exam Narrative: GENERAL: This is a well-nourished, well-developed patient, lying on stretcher appears anxious HEAD: Atraumatic. Normocephalic. No temporal or scalp tenderness. EYES: Pupils equal round and reactive. Extraocular motions intact. No scleral icterus. No injection or drainage. ENT: Nose without bleeding, purulent drainage or septal hematoma. Throat without erythema, tonsillar hypertrophy or exudate. Uvula midline. Airway patent. NECK: Trachea midline. No JVD or lymphadenopathy. Supple, nontender, no meningeal signs. CARDIOVASCULAR: Regular rate and rhythm without murmurs, gallops, or rubs. RESPIRATORY: Clear to auscultation. Breath sounds equal bilaterally. No wheezes, rales, or rhonchi. No cough. No increased respiratory effort no accessory muscle use. GASTROINTESTINAL: Abdomen soft, non-tender, nondistended. No hepato- splenomegaly, or palpable masses. No guarding. EXTREMITIES: No clubbing, cyanosis, or edema. No joint tenderness, effusion, or edema noted. BACK: Nontender without deformity or crepitance. No flank tenderness. NEURO: AOx3. Stable gait. Strength is equal upper and lower extremities bilaterally. SKIN: No rash or erythema. Initial Vital Signs Initial Vital Signs: Vital Signs Temperature 98.5 F 06/20/18 12:06 Pulse Rate 74 06/20/18 12:06 Respiratory Rate 13 06/20/18 12:06 Blood Pressure 122/78 06/20/18 12:06 Pulse Oximetry 97 06/20/18 12:06 <Daisy Haines DO - Last Filed: 06/26/18 19:03> Initial Vital Signs Initial Vital Signs: Vital Signs Temperature 98.5 F 06/20/18 12:06 Pulse Rate 74 06/20/18 12:06 Respiratory Rate 13 06/20/18 12:06 Blood Pressure 122/78 06/20/18 12:06 Pulse Oximetry 97 06/20/18 12:06 Course <NINFA [place] - Last Filed: 06/20/18 22:16> Orders Ordered: ED Orders 06/20/18 14:25 Complete Blood Count AUTO DIFF Stat Comprehensive Metabolic Panel Stat Partial Thromboplastin Time Stat Prothrombin Time INR Stat Troponin & CK Cardiac Panel Stat Vital Signs - 8 hr 06/20/18 14:33 Pulse Rate 65 Respiratory Rate 15 Blood Pressure [Left Arm] 130/69 Pulse Oximetry 100 <Daisy Haines DO - Last Filed: 06/26/18 19:03> Orders Ordered: ED Orders 06/20/18 14:25 Complete Blood Count AUTO DIFF Stat Comprehensive Metabolic Panel Stat Partial Thromboplastin Time Stat Prothrombin Time INR Stat Troponin & CK Cardiac Panel Stat Vital Signs - 8 hr 06/20/18 14:33 Pulse Rate 65 Respiratory Rate 15 Blood Pressure [Left Arm] 130/69 Pulse Oximetry 100 MDM - Dizziness <NINFA [place] Last Filed: 06/20/18 22:16> Lab Data Result diagrams: 06/20/18 14:25 06/20/18 14:25 Lab Results 06/20/18 06/20/18 06/20/18 Range/Units 14:25 14:25 14:25 WBC 9.1 (4.5-11.0) X10^3/uL RBC 5.12 (4.0-5.2) X10^6/uL Hgb 12.7 (12.0-16.0) g/dL Hct 40.0 (36-46) % MCV 78.1 L (80-100) fL MCH 24.9 L (26-34) PG MCHC 31.8 (30-36) % RDW 16.8 H (11.6-14.8) % Plt Count 448 H (150-400) X10^3/uL Neut % (Auto) 90.2 H (50-75) % Lymph % (Auto) 7.5 L (25-40) % Eagle % (Auto) 2.2 L (3-14) % Eos % (Auto) 0.0 L (2-4) % Baso % (Auto) 0.1 (0-2) % Neut # (Auto) 8200 H (4926-0628) /uL Lymph # (Auto) 700 L (7046-1191) /uL Eagle # (Auto) 200 (0-900) /uL Eos # (Auto) 0 (0-450) /uL Baso # (Auto) 0 (0-100) /uL PT 11.3 (10.1-12.7) SECONDS INR 1.0 (0.9-1.3) APTT 34 (26.4-36.2) SECONDS Sodium 141 (137-145) mmol/L Potassium 3.9 (3.4-5.1) mmol/L Chloride 104 (98-107) mmol/L Carbon Dioxide 26 (22-32) mmol/L BUN 10 (7-17) mg/dL Creatinine 0.50 L (0.52-1.04) mg/dL Estimated GFR > 60.0 (>60) mL/min BUN/Creatinine Ratio 20.0 (6-22) Glucose 134 H (70-100) mg/dL Calcium 9.5 (8.4-10.2) mg/dL Total Bilirubin 0.3 (0.2-1.3) mg/dL AST 18 (14-36) IU/L ALT 25 (9-52) IU/L Alkaline Phosphatase 85 (38-126) U/L Total Creatine Kinase 61 (30-135) U/L CK-MB (CK-2) TNP CK-MB (CK-2) Rel Index TNP Troponin I < 0.012 (0.01-0.034) ng/mL Total Protein 7.4 (6.3-8.2) g/dL Albumin 4.3 (3.5-5.0) g/dL Globulin 3.1 (1.7-4.1) g/dL Albumin/Globulin Ratio 1.4 (1.0-2.8) Urine Dip Bedside Urine Glucose Negative Bedside Urine Bilirubin - Negative Bedside Urine Ketone +/- 5 Urine Specific [place] 1.010 Bedside Urine Occult Blood - Negative Bedside Urine pH 6.0 Bedside Urine Protein - Negative Bedside Urine Urobilinogen - Negative Bedside Urine Nitrite - Negative Bedside Urine Leukocytes - Negative Esterase MDM Narrative Medical decision making narrative: The patient is a 57-year-old female presents with a chief complaint of dizziness that has been going on for several months. She has seen her thermit welding machine operator as well as an ENT about this. She has normal lab work initially, stable vital signs and is hemodynamically stable. she has troponin negative. I did discuss at length with her obtaining further imaging and/or lab work given the duration of her symptoms. She states she would rather follow up with primary care provider. I am okay with this as she is hemodynamically stable and neurologically intact. discussed at length return precautions of worsening, concerning chest pain or shortness of breath. d iscussed importance of following up with primary care provider. Patient has no questions or concerns upon discharge and ambulate steadily out. <Daisy Haines, - Last Filed: 06/26/18 19:03> Lab Data Lab Results 06/20/18 06/20/18 06/20/18 Range/Units 14:25 14:25 14:25 WBC 9.1 (4.5-11.0) X10^3/uL RBC 5.12 (4.0-5.2) X10^6/uL Hgb 12.7 (12.0-16.0) g/dL Hct 40.0 (36-46) % MCV 78.1 L (80-100) fL MCH 24.9 L (26-34) PG MCHC 31.8 (30-36) % RDW 16.8 H (11.6-14.8) % Plt Count 448 H (150-400) X10^3/uL Neut % (Auto) 90.2 H (50-75) % Lymph % (Auto) 7.5 L (25-40) % Eagle % (Auto) 2.2 L (3-14) % Eos % (Auto) 0.0 L (2-4) % Baso % (Auto) 0.1 (0-2) % Neut # (Auto) 8200 H (3945-6235) /uL Lymph # (Auto) 700 L (0329-6085) /uL [place] # (Auto) 200 (0-900) /uL Eos # (Auto) 0 (0-450) /uL Baso # (Auto) 0 (0-100) /uL PT 11.3 (10.1-12.7) SECONDS INR 1.0 (0.9-1.3) APTT 34 (26.4-36.2) SECONDS Sodium 141 (137-145) mmol/L Potassium 3.9 (3.4-5.1) mmol/L Chloride 104 (98-107) mmol/L Carbon Dioxide 26 (22-32) mmol/L BUN 10 (7-17) mg/dL Creatinine 0.50 L (0.52-1.04) mg/dL Estimated GFR > 60.0 (>60) mL/min BUN/Creatinine Ratio 20.0 (6-22) Glucose 134 H (70-100) mg/dL Calcium 9.5 (8.4-10.2) mg/dL Total Bilirubin 0.3 (0.2-1.3) mg/dL AST 18 (14-36) IU/L ALT 25 (9-52) IU/L Alkaline Phosphatase 85 (38-126) U/L Total Creatine Kinase 61 (30-135) U/L CK-MB (CK-2) TNP CK-MB (CK-2) Rel Index TNP Troponin I < 0.012 (0.01-0.034) ng/mL Total Protein 7.4 (6.3-8.2) g/dL Albumin 4.3 (3.5-5.0) g/dL Globulin 3.1 (1.7-4.1) g/dL Albumin/Globulin Ratio 1.4 (1.0-2.8) Urine Dip Bedside Urine Glucose Negative Bedside Urine Bilirubin - Negative Bedside Urine Ketone +/- 5 Urine Specific [place] 1.010 Bedside Urine Occult Blood - Negative Bedside Urine pH 6.0 Bedside Urine Protein - Negative Bedside Urine Urobilinogen - Negative Bedside Urine Nitrite - Negative Bedside Urine Leukocytes - Negative Esterase Discharge Plan Departure Patient Disposition: Home Clinical Impression: Dizziness Discharge Date/Time: 06/20/18 16:12 Interventions: ED Discharge Assessment Last Done: 06/20/18 16:12 Instructions: DI for Dizziness-Nonvertigo Activity Restrictions/Additional Instructions: Your lab work came back generally normal today. Please follow up with primary care provider regarding all of her antihistamines and other medication. Antihistamines and prednisone can make you feel up it off. Please come back to the emergency department for any acute concerns such as chest pain shortness of breath concern of heart attack or stroke. Please follow up with your primary care provider soon as possible. Prescriptions: No Action multivitamin tablet 1 tab PO MOWEFR RF: 0 Calcium 600 + D(3) 600 mg calcium- 200 unit Capsule 1 cap PO DAILY RF: 0 CBD Oil See Patient Comments .ROUTE .COMPLEX RF: 0 Premarin 0.625 mg/gram cream 1 applictn Vaginal 2XW Qty: 30 RF: 3 dexlansoprazole 30 mg capsule,biphase delayed releas 30 mg PO DAILY Qty: 30 RF: 1 melatonin 5 mg capsule 5 mg PO BEDTIME RF: 0 allopurinol 100 mg tablet 100 mg PO QPM RF: 0 ranitidine HCl [Zantac] 150 mg tablet 150 mg PO BID RF: 0 aspirin 81 mg Tablet,Delayed Release (Dr/Ec) 81 mg PO BEDTIME RF: 0 hydrocodone-acetaminophen 7.5-325 mg tablet 1 tab PO QPM RF: 0 Referrals: Juliana Alberts PA-C [Primary Care Provider] - <Daisy Haines DO - Last Filed: 06/26/18 19:03> Cosign ED Attending Elenaature Attestation: I was immediately available in the department for consultation. This documentation has been reviewed and I agree with assessment and plan. Supervised by Daisy Haines DO
[2018-06-20 14:33] VITALS: BP 130/69; PULSE 65; RESP 15; O2SAT 100
[2018-06-20 14:39] LABS: Add Manual Diff / Slide Review NO; Basophils Absolute Auto 0 /uL (0-100); Basophils Percent Auto 0.1 % (0-2); Eosinophils Absolute Auto 0 /uL (0-450); Hemoglobin 12.7 g/dL (12.0-16.0); Lymphocytes Absolute Auto 700 /uL (1100-4500); Lymphocytes Percent Auto 7.5 % (25-40); Mean Corpuscular HGB Conc 31.8 % (30-36); Mean Corpuscular Hemoglobin 24.9 PG (26-34); Mean Corpuscular Volume 78.1 fL (80-100); Monocytes Absolute Auto 200 /uL (0-900); Monocytes Percent Auto 2.2 % (3-14); Neutrophils Absolute Auto 8200 /uL (1500-7000); Neutrophils Percent Auto 90.2 % (50-75); Platelet Count 448 X10^3/uL (150-400); Red Blood Cell Count 5.12 X10^6/uL (4.0-5.2); Red Cell Distribution Width 16.8 % (11.6-14.8); White Blood Cell Count 9.1 X10^3/uL (4.5-11.0)
[2018-06-20 14:44] LABS: Prothrombin Time 11.3 SECONDS (10.1-12.7)
[2018-06-20 14:47] LABS: PTT Partial Thromboplastin Tim 34 SECONDS (26.4-36.2)
[2018-06-20 14:48] LABS: Alanine Aminotransferase 25 IU/L (9-52); Albumin 4.3 g/dL (3.5-5.0); Albumin Globulin Ratio 1.4 (1.0-2.8); Alkaline Phosphatase 85 U/L (38-126); Aspartate Aminotransferase 18 IU/L (14-36); Bilirubin Total 0.3 mg/dL (0.2-1.3); Blood Urea Nitrogen 10 mg/dL (7-17); Calcium 9.5 mg/dL (8.4-10.2); Carbon Dioxide 26 mmol/L (22-32); Chloride 104 mmol/L (98-107); Creatine Kinase 61 U/L (30-135); Estimated Glomerular Filt Rate > 60.0 mL/min (>60); Globulin 3.1 g/dL (1.7-4.1); Glucose 134 mg/dL (70-100); HEMOLYSIS < 15 (0-50); Potassium 3.9 mmol/L (3.4-5.1); Sodium 141 mmol/L (137-145); Total Protein 7.4 g/dL (6.3-8.2)
[2018-06-20 15:00] LABS: Troponin I < 0.012 ng/mL (0.01-0.034)
== END 2018-06-20 16:12 | disposition home or self-care (01) ==
PROVIDERS: Emergency Provider Nurse Practitioner Family; PCP Physician Assistant
DX: R42 Dizziness and giddiness (principal)
CPT/HCPCS: 36415; 80053; 81003; 82550; 84484; 85025; 85610; 85730; 93005; 99283

== ENCOUNTER → 2018-07-22 07:00 | Outpatient (CLI) | payer MEDICARE, MEDICAID, SELFPAY ==
[2018-07-22 08:31] LABS: Add Manual Diff / Slide Review NO; Basophils Absolute Auto 0 /uL (0-100); Basophils Percent Auto 0.1 % (0-2); Eosinophils Absolute Auto 0 /uL (0-450); Hematocrit 39.8 % (36-46); Hemoglobin 13.3 g/dL (12.0-16.0); Lymphocytes Absolute Auto 1300 /uL (1100-4500); Lymphocytes Percent Auto 17.2 % (25-40); Mean Corpuscular HGB Conc 33.3 % (30-36); Mean Corpuscular Hemoglobin 25.8 PG (26-34); Mean Corpuscular Volume 77.4 fL (80-100); Monocytes Absolute Auto 600 /uL (0-900); Monocytes Percent Auto 8.4 % (3-14); Neutrophils Absolute Auto 5600 /uL (1500-7000); Neutrophils Percent Auto 74.3 % (50-75); Platelet Count 467 X10^3/uL (150-400); Red Blood Cell Count 5.14 X10^6/uL (4.0-5.2); Red Cell Distribution Width 16.8 % (11.6-14.8); White Blood Cell Count 7.5 X10^3/uL (4.5-11.0)
[2018-07-22 08:47] LABS: Alanine Aminotransferase 13 IU/L (9-52); Albumin 4.3 g/dL (3.5-5.0); Albumin Globulin Ratio 1.4 (1.0-2.8); Alkaline Phosphatase 92 U/L (38-126); Aspartate Aminotransferase 16 IU/L (14-36); BUN Creatinine Ratio 13.3 (6-22); Bilirubin Total 0.7 mg/dL (0.2-1.3); Blood Urea Nitrogen 8 mg/dL (7-17); Calcium 9.5 mg/dL (8.4-10.2); Carbon Dioxide 26 mmol/L (22-32); Chloride 102 mmol/L (98-107); Cholesterol 158 mg/dL (140-199); Estimated Glomerular Filt Rate > 60.0 mL/min (>60); Globulin 3.1 g/dL (1.7-4.1); Glucose 107 mg/dL (70-100); HDL Cholesterol 43 mg/dL (40-60); HEMOLYSIS < 15 (0-50); LDL Cholesterol Calculated 99 mg/dL (<100); Potassium 3.9 mmol/L (3.4-5.1); Sodium 137 mmol/L (137-145); Total Protein 7.4 g/dL (6.3-8.2); Triglycerides 78 mg/dL (35-150); Uric Acid 5.9 mg/dL (2.5-6.2)
[2018-07-24 16:07] LABS: Rubeola Measles IgG > 300.00 AU/mL (< 25.00)
== END ==
PROVIDERS: PCP Physician Assistant; Visit Provider Physician Assistant
DX: E78.5 Hyperlipidemia, unspecified (principal); E79.0 Hyperuricemia without signs of inflammatory arthritis and tophaceous disease; R10.13 Epigastric pain; Z01.84 Encounter for antibody response examination
CPT/HCPCS: 36415; 80053; 80061; 84550; 85025; 86677; 86765

== ENCOUNTER 2018-07-23 12:06 | Emergency (ER) | payer MEDICARE, MEDICAID, SELFPAY ==
[2018-07-23 12:15] VITALS: BP 122/74; PULSE 58; RESP 16; TEMP 37.8; O2SAT 100; BMI 29.6
--- NOTE | 2018-07-23 12:17 | ED.UPPEXIN ---
HPI - Extremity Injury (Upper) <Daisy Renner, CLIENT MANAGER [employer]-BC - Last Filed: 07/23/18 14:35> General Chief Complaint: Extremity Injury, Upper Stated Complaint: Fell and hurt left shoulder Time Seen by Provider: 07/23/18 12:08 Source: patient Mode of arrival: ambulatory Limitations: no limitations History of Present Illness HPI narrative: The patient is a 57-year-old female former smoker with history of gastritis who presents with a chief complaint of left shoulder pain after ground level fall. She states she tripped on her cat and fell with her left shoulder and the wall and then on the ground. She denies any numbness or tingling. She has not taken anything for the pain. She has not hurt this shoulder previously. She denies any neck pain back pain or other injury. Related Data Home Medications Medication Instructions Recorded Confirmed calcium carbonate-vitamin D3 600 1 cap PO DAILY 03/02/18 07/13/18 mg calcium-200 unit capsule multivitamin tablet 1 tab PO MOWEFR tab 03/02/18 07/13/18 melatonin 5 mg capsule 5 mg PO BEDTIME cap 06/23/18 07/13/18 CBD Oil See Rx Instructions .ROUTE .COMPLEX 07/09/18 07/13/18 aspirin 81 mg tablet,delayed 81 mg PO BEDTIME 07/09/18 07/13/18 release hydrocodone 7.5 mg-acetaminophen 1 tab PO QPM 07/09/18 07/13/18 325 mg tablet ranitidine 150 mg tablet 150 mg PO BID 07/09/18 07/13/18 Previous Rx's Medication Instructions Recorded conjugated estrogens 0.625 mg/gram 1 applictn VAGINAL 2XW #30 gram 05/12/18 vaginal cream allopurinol 100 mg tablet 100 mg PO QPM #90 tab 07/07/18 dexlansoprazole 60 mg 60 mg PO DAILY #30 cap 07/20/18 capsule,biphase delayed release lidocaine 1 patch TOP DAILY #15 each 07/23/18 Allergies Allergy/AdvReac Type Severity Reaction Status Date / Time Sulfa (Sulfonamide Allergy Severe Possible Verified 07/23/18 12:19 Antibiotics) due to [SULFA (SULFONAMIDE Celebrex ANTIBIOTICS)] allergy fenofibrate [FENOFIBRATE] Allergy Intermediate Rash Verified 07/23/18 12:19 red yeast rice Allergy Mild Rash Verified 07/23/18 12:19 [RED YEAST RICE] external genital area adhesive AdvReac Severe REDNESS, Verified 07/23/18 12:19 ITCHING AND BLISTERS FROM ADHESIVE TAPE montelukast AdvReac Intermediate SORES IN Verified 07/23/18 12:19 MY MOUTH AND NOSTRIL latex AdvReac Mild ITCHING Verified 07/23/18 12:19 CAT DANDER Allergy Intermediate ITCHY Uncoded 07/23/18 12:19 WATER EYES, CONGESTION, RUNNY NOSE Tree pollen Allergy Intermediate Birch/[place] Uncoded 07/23/18 12:19 trees - Runny/Itchy nose/Eye irritation. Review of Systems <NINFA [place] - Last Filed: 07/23/18 14:35> Review of Systems GENERAL: Denies chills, fatigue, malaise, fever, sweats. HEENT: Denies sinus pain, ear pain, sore throat, difficulty swallowing, dizziness. RESPIRATORY: Denies dyspnea, cough, wheezing, hemoptysis, sputum. CARDIOVASCULAR: Denies chest pain, palpitations, orthopnea, edema, GASTROINTESTINAL: Denies nausea, vomiting, abdominal pain, diarrhea, constipation, melena. : Denies dysuria, frequency, incontinence, hematuria, urinary retention. MUSCULOSKELETAL: See HPI SKIN: See HPI NEUROLOGIC: Denies weakness, headache, numbness, change in speech, confusion, seizures, incoordination. PSYCHIATRIC: No concerning psychosocial issues. 12 point review of systems is negative except for those stated above PFSH <NINFA [place] - Last Filed: 07/23/18 14:35> Social History Smoking Status: Former smoker Tobacco: How many years used: 13 second hand exposure: No alcohol intake: current substance use type: does not use Exam <NINFA [place] - Last Filed: 07/23/18 14:35> Narrative Exam Narrative: GENERAL: This is a well-nourished, well-developed patient, appears uncomfortable HEAD: Atraumatic. Normocephalic. No temporal or scalp tenderness. EYES: Pupils equal round and reactive. Extraocular motions intact. No scleral icterus. No injection or drainage. ENT: Nose without bleeding, purulent drainage or septal hematoma. Throat without erythema, tonsillar hypertrophy or exudate. Uvula midline. Airway patent. NECK: Trachea midline. No JVD or lymphadenopathy. Supple, nontender, no meningeal signs. CARDIOVASCULAR: Regular rate and rhythm without murmurs, gallops, or rubs. RESPIRATORY: Clear to auscultation. Breath sounds equal bilaterally. No wheezes, rales, or rhonchi. No cough. No increased respiratory effort. No accessory lung GASTROINTESTINAL: Abdomen soft, non-tender, nondistended. No hepato-splenomegaly, or palpable masses. No guarding. Active bowel sounds all 4 quadrants. EXTREMITIES: Pain to palpation left shoulder. Patient is able to extend flex left shoulder. Positive radial pulse left hand. Negative empty can test. BACK: Nontender without deformity or crepitance. No flank tenderness. No pain to C-spine or spinal palpation. NEURO: AOx3. Stable gait. No gross cranial nerve deficit. SKIN: No rash or erythema. No erythema ecchymosis laceration or abrasion noted left shoulder. Initial Vital Signs Initial Vital Signs: Vital Signs Temperature 100.0 F H 07/23/18 12:15 Pulse Rate 58 L 07/23/18 12:15 Respiratory Rate 16 07/23/18 12:15 Blood Pressure 122/74 07/23/18 12:15 Pulse Oximetry 100 07/23/18 12:15 <Claudio Ye DO - Last Filed: 07/23/18 15:22> Initial Vital Signs Initial Vital Signs: Vital Signs Temperature 100.0 F H 07/23/18 12:15 Pulse Rate 58 L 07/23/18 12:15 Respiratory Rate 16 07/23/18 12:15 Blood Pressure 122/74 07/23/18 12:15 Pulse Oximetry 100 07/23/18 12:15 Course <SANJEEV [place]-BC - Last Filed: 07/23/18 14:35> Orders Ordered: ED Orders 07/23/18 12:18 XR shoulder LT min 2V Stat Discontinued Medications Ketorolac Tromethamine (Toradol) 60 mg IM NOW ONE Stop: 07/23/18 12:56 Last Admin: 07/23/18 13:23 Dose: 60 mg Lidocaine (Lidoderm) 1 each TOP NOW ONE Stop: 07/23/18 12:57 Last Admin: 07/23/18 13:23 Dose: 1 each Vital Signs - 8 hr 07/23/18 12:15 07/23/18 14:04 Temperature 100.0 F H 98.2 F Pulse Rate 58 L 88 Respiratory Rate 16 16 Blood Pressure 122/74 105/72 Pulse Oximetry 100 99 <Claudio Ye DO - Last Filed: 07/23/18 15:22> Orders Ordered: ED Orders 07/23/18 12:18 XR shoulder LT min 2V Stat Discontinued Medications Ketorolac Tromethamine (Toradol) 60 mg IM NOW ONE Stop: 07/23/18 12:56 Last Admin: 07/23/18 13:23 Dose: 60 mg Lidocaine (Lidoderm) 1 each TOP NOW ONE Stop: 07/23/18 12:57 Last Admin: 07/23/18 13:23 Dose: 1 each Vital Signs - 8 hr 07/23/18 12:15 07/23/18 14:04 Temperature 100.0 F H 98.2 F Pulse Rate 58 L 88 Respiratory Rate 16 16 Blood Pressure 122/74 105/72 Pulse Oximetry 100 99 MDM - Extremity Injury (Upper) <NINFA [place] - Last Filed: 07/23/18 14:35> Imaging Data shoulder xray : Radiologist's impression: [place] [address] XRay Report Signed Patient: Rosalia Montes De Oca [facility]#: [id number] : 9Acct:[id number] Age/Sex: 57 / FDate of Service: 07/23/18 Loc: ED Accession Number: [id number] Procedure: XR shoulder LT min 2V Ordering Provider: Daisy Renner PROCEDURE: XR SHOULDER LT MIN 2V INDICATIONS: fall with shoulder pain TECHNIQUE: 3 views of the shoulder were acquired. COMPARISON: None. FINDINGS: Bones: No fractures or dislocations. No suspicious bony lesions. Visualized ribs appear intact. Soft tissues: No suspicious soft tissue calcifications. The visualized lung demonstrates an unremarkable appearance. IMPRESSION: No displaced fractures are seen on these plain films. If there is focal tenderness, or other clinical concern for a fracture not seen on these images in this patient with a given history of trauma, please consider a dedicated CT or a short-term followup plain film series (in 1-2 weeks) for further evaluation. Dictated by: Spenser Jara M.D. on 07/23/2018 at 11:42 Approved by: Spenser Jara M.D. on 07/23/2018 at 11:42 [facility] Narrative Medical decision making narrative: The patient is a 57-year-old female who presents with an isolated left shoulder injury. She has an overall benign exam. She does not want to take oral pain medications, showed she was given IM Toradol and a lidocaine patch to the emergency department. She found the lidocaine patches helpful, so I gave her prescription of them. She is neurovascularly intact. I discussed at length follow up with primary care provider. She already has a PCP appointment for early next week. Discussed return precautions of acute concerns. Patient has no questions or concerns upon discharge. Discharge Plan Departure Patient Disposition: Home Clinical Impression: Acute shoulder pain Qualifiers: Laterality: left Qualified Code(s): M25.512 - Pain in left shoulder Discharge Date/Time: 07/23/18 14:18 Interventions: ED Discharge Assessment Last Done: 07/23/18 14:04 Instructions: How To Perform RICE (Rest, Ice, Compress, Elevate), DI for Shoulder Pain Activity Restrictions/Additional Instructions: Your xrays came back with no fracture. I have given you a prescription for lidocaine patches to help with her pain and in respect to not to not take any pills. Be aware that the prescription strength for the patches 5%, while 4% is available [id number]. I also suggest rest ice compression. elevation. Please follow up with primary care provider. Please come back to emergency department for any acute concerns. Prescriptions: New lidocaine 5 % adhesive patch,medicated 1 patch TOP DAILY Qty: 15 RF: 0 No Action multivitamin tablet 1 tab PO MOWEFR RF: 0 Calcium 600 + D(3) 600 mg calcium- 200 unit Capsule 1 cap PO DAILY RF: 0 CBD Oil See Patient Comments .ROUTE .COMPLEX RF: 0 Premarin 0.625 mg/gram cream 1 applictn Vaginal 2XW Qty: 30 RF: 3 allopurinol 100 mg tablet 100 mg PO QPM Qty: 90 RF: 0 dexlansoprazole 60 mg capsule,biphase delayed releas 60 mg PO DAILY Qty: 30 RF: 3 melatonin 5 mg capsule 5 mg PO BEDTIME RF: 0 ranitidine HCl [Zantac] 150 mg tablet 150 mg PO BID RF: 0 aspirin 81 mg tablet,delayed release (DR/EC) 81 mg PO BEDTIME RF: 0 hydrocodone-acetaminophen 7.5-325 mg tablet 1 tab PO QPM RF: 0 Referrals: Juliana Alberts PA-C [Primary Care Provider] - <Claudio Ye DO - Last Filed: 07/23/18 15:22> Cosign ED Attending Bret Attestation: I was immediately available in the department for consultation. Documentation has been reviewed. I agree with assessment and plan.
--- NOTE | 2018-07-23 12:28 | ED_ITS ---
HPI - Extremity Injury (Upper) <Daisy Renner, COTTAGE ATTENDANT-BC - Last Filed: 07/23/18 14:35> General Chief Complaint: Extremity Injury, Upper Stated Complaint: Fell and hurt left shoulder Time Seen by Provider: 07/23/18 12:08 Source: patient Mode of arrival: ambulatory Limitations: no limitations History of Present Illness HPI narrative: The patient is a 57-year-old female former smoker with history of gastritis who presents with a chief complaint of left shoulder pain after ground level fall. She states she tripped on her cat and fell with her left shoulder and the wall and then on the ground. She denies any numbness or tingling. She has not taken anything for the pain. She has not hurt this shoulder previously. She denies any neck pain back pain or other injury. Related Data Home Medications Medication Instructions Recorded Confirmed calcium carbonate-vitamin D3 600 1 cap PO DAILY 03/02/18 07/13/18 mg calcium-200 unit capsule multivitamin tablet 1 tab PO MOWEFR tab 03/02/18 07/13/18 melatonin 5 mg capsule 5 mg PO BEDTIME cap 06/23/18 07/13/18 CBD Oil See Rx Instructions .ROUTE .COMPLEX 07/09/18 07/13/18 aspirin 81 mg tablet,delayed 81 mg PO BEDTIME 07/09/18 07/13/18 release hydrocodone 7.5 mg-acetaminophen 1 tab PO QPM 07/09/18 07/13/18 325 mg tablet ranitidine 150 mg tablet 150 mg PO BID 07/09/18 07/13/18 Previous Rx's Medication Instructions Recorded conjugated estrogens 0.625 mg/gram 1 applictn VAGINAL 2XW #30 gram 05/12/18 vaginal cream allopurinol 100 mg tablet 100 mg PO QPM #90 tab 07/07/18 dexlansoprazole 60 mg 60 mg PO DAILY #30 cap 07/20/18 capsule,biphase delayed release lidocaine 1 patch TOP DAILY #15 each 07/23/18 Allergies Allergy/AdvReac Type Severity Reaction Status Date / Time Sulfa (Sulfonamide Allergy Severe Possible Verified 07/23/18 12:19 Antibiotics) due to [SULFA (SULFONAMIDE Celebrex ANTIBIOTICS)] allergy fenofibrate [FENOFIBRATE] Allergy Intermediate Rash Verified 07/23/18 12:19 red yeast rice Allergy Mild Rash Verified 07/23/18 12:19 [RED YEAST RICE] external genital area adhesive AdvReac Severe REDNESS, Verified 07/23/18 12:19 ITCHING AND BLISTERS FROM ADHESIVE TAPE montelukast AdvReac Intermediate SORES IN Verified 07/23/18 12:19 MY MOUTH AND NOSTRIL latex AdvReac Mild ITCHING Verified 07/23/18 12:19 CAT DANDER Allergy Intermediate ITCHY Uncoded 07/23/18 12:19 WATER EYES, CONGESTION, RUNNY NOSE Tree pollen Allergy Intermediate Birch/Anahi Uncoded 07/23/18 12:19 trees - Runny/Itchy nose/Eye irritation. Review of Systems <NINFA [place] - Last Filed: 07/23/18 14:35> Review of Systems GENERAL: Denies chills, fatigue, malaise, fever, sweats. HEENT: Denies sinus pain, ear pain, sore throat, difficulty swallowing, dizziness. RESPIRATORY: Denies dyspnea, cough, wheezing, hemoptysis, sputum. CARDIOVASCULAR: Denies chest pain, palpitations, orthopnea, edema, GASTROINTESTINAL: Denies nausea, vomiting, abdominal pain, diarrhea, constipation, melena. : Denies dysuria, frequency, incontinence, hematuria, urinary retention. MUSCULOSKELETAL: See HPI SKIN: See HPI NEUROLOGIC: Denies weakness, headache, numbness, change in speech, confusion, seizures, incoordination. PSYCHIATRIC: No concerning psychosocial issues. 12 point review of systems is negative except for those stated above PFSH <NINFA [place] - Last Filed: 07/23/18 14:35> Social History Smoking Status: Former smoker Tobacco: How many years used: 13 second hand exposure: No alcohol intake: current substance use type: does not use Exam <NINFA [place] - Last Filed: 07/23/18 14:35> Narrative Exam Narrative: GENERAL: This is a well-nourished, well-developed patient, appears uncomfortable HEAD: Atraumatic. Normocephalic. No temporal or scalp tenderness. EYES: Pupils equal round and reactive. Extraocular motions intact. No scleral icterus. No injection or drainage. ENT: Nose without bleeding, purulent drainage or septal hematoma. Throat without erythema, tonsillar hypertrophy or exudate. Uvula midline. Airway patent. NECK: Trachea midline. No JVD or lymphadenopathy. Supple, nontender, no meningeal signs. CARDIOVASCULAR: Regular rate and rhythm without murmurs, gallops, or rubs. RESPIRATORY: Clear to auscultation. Breath sounds equal bilaterally. No wheezes, rales, or rhonchi. No cough. No increased respiratory effort. No accessory lung GASTROINTESTINAL: Abdomen soft, non-tender, nondistended. No hepato- splenomegaly, or palpable masses. No guarding. Active bowel sounds all 4 quadrants. EXTREMITIES: Pain to palpation left shoulder. Patient is able to extend flex left shoulder. Positive radial pulse left hand. Negative empty can test. BACK: Nontender without deformity or crepitance. No flank tenderness. No pain to C-spine or spinal palpation. NEURO: AOx3. Stable gait. No gross cranial nerve deficit. SKIN: No rash or erythema. No erythema ecchymosis laceration or abrasion noted left shoulder. Initial Vital Signs Initial Vital Signs: Vital Signs Temperature 100.0 F H 07/23/18 12:15 Pulse Rate 58 L 07/23/18 12:15 Respiratory Rate 16 07/23/18 12:15 Blood Pressure 122/74 07/23/18 12:15 Pulse Oximetry 100 07/23/18 12:15 <Claudio Ye DO - Last Filed: 07/23/18 15:22> Initial Vital Signs Initial Vital Signs: Vital Signs Temperature 100.0 F H 07/23/18 12:15 Pulse Rate 58 L 07/23/18 12:15 Respiratory Rate 16 07/23/18 12:15 Blood Pressure 122/74 07/23/18 12:15 Pulse Oximetry 100 07/23/18 12:15 Course <SANJEEV [place]-BC - Last Filed: 07/23/18 14:35> Orders Ordered: ED Orders 07/23/18 12:18 XR shoulder LT min 2V Stat Discontinued Medications Ketorolac Tromethamine (Toradol) 60 mg IM NOW ONE Stop: 07/23/18 12:56 Last Admin: 07/23/18 13:23 Dose: 60 mg Lidocaine (Lidoderm) 1 each TOP NOW ONE Stop: 07/23/18 12:57 Last Admin: 07/23/18 13:23 Dose: 1 each Vital Signs - 8 hr 07/23/18 12:15 07/23/18 14:04 Temperature 100.0 F H 98.2 F Pulse Rate 58 L 88 Respiratory Rate 16 16 Blood Pressure 122/74 105/72 Pulse Oximetry 100 99 <Claudio Ye DO - Last Filed: 07/23/18 15:22> Orders Ordered: ED Orders 07/23/18 12:18 XR shoulder LT min 2V Stat Discontinued Medications Ketorolac Tromethamine (Toradol) 60 mg IM NOW ONE Stop: 07/23/18 12:56 Last Admin: 07/23/18 13:23 Dose: 60 mg Lidocaine (Lidoderm) 1 each TOP NOW ONE Stop: 07/23/18 12:57 Last Admin: 07/23/18 13:23 Dose: 1 each Vital Signs - 8 hr 07/23/18 12:15 07/23/18 14:04 Temperature 100.0 F H 98.2 F Pulse Rate 58 L 88 Respiratory Rate 16 16 Blood Pressure 122/74 105/72 Pulse Oximetry 100 99 MDM - Extremity Injury (Upper) <NINFA [place] - Last Filed: 07/23/18 14:35> Imaging Data shoulder xray : Radiologist's impression: [place] [address] XRay Report Signed Patient: Rosalia Montes De Oca [facility]#: [id number] : 9Acct:[id number] Age/Sex: 57 / FDate of Service: 07/23/18 Loc: ED Accession Number: [id number] Procedure: XR shoulder LT min 2V Ordering Provider: Daisy Renner PROCEDURE: XR SHOULDER LT MIN 2V INDICATIONS: fall with shoulder pain TECHNIQUE: 3 views of the shoulder were acquired. COMPARISON: None. FINDINGS: Bones: No fractures or dislocations. No suspicious bony lesions. Visualized ribs appear intact. Soft tissues: No suspicious soft tissue calcifications. The visualized lung demonstrates an unremarkable appearance. IMPRESSION: No displaced fractures are seen on these plain films. If there is focal tenderness, or other clinical concern for a fracture not seen on these images in this patient with a given history of trauma, please consider a dedicated CT or a short-term followup plain film series (in 1-2 weeks) for further evaluation. Dictated by: Spenser Jara M.D. on 07/23/2018 at 11:42 Approved by: Spenser Jara M.D. on 07/23/2018 at 11:42 [facility] Narrative Medical decision making narrative: The patient is a 57-year-old female who presents with an isolated left shoulder injury. She has an overall benign exam. She does not want to take oral pain medications, showed she was given IM Toradol and a lidocaine patch to the emergency department. She found the lidocaine patches helpful, so I gave her prescription of them. She is neurovas cularly intact. I discussed at length follow up with primary care provider. She already has a PCP appointment for early next week. Discussed return precautions of acute concerns. Patient has no questions or concerns upon discharge. Discharge Plan Departure Patient Disposition: Home Clinical Impression: Acute shoulder pain Qualifiers: Laterality: left Qualified Code(s): M25.512 - Pain in left shoulder Discharge Date/Time: 07/23/18 14:18 Interventions: ED Discharge Assessment Last Done: 07/23/18 14:04 Instructions: How To Perform RICE (Rest, Ice, Compress, Elevate), DI for Shoulder Pain Activity Restrictions/Additional Instructions: Your xrays came back with no fracture. I have given you a prescription for lidocaine patches to help with her pain and in respect to not to not take any pills. Be aware that the prescription strength for the patches 5%, while 4% is available [id number]. I also suggest rest ice compression. elevation. Please follow up with primary care provider. Please come back to emergency department for any acute concerns. Prescriptions: New lidocaine 5 % adhesive patch,medicated 1 patch TOP DAILY Qty: 15 RF: 0 No Action multivitamin tablet 1 tab PO MOWEFR RF: 0 Calcium 600 + D(3) 600 mg calcium- 200 unit Capsule 1 cap PO DAILY RF: 0 CBD Oil See Patient Comments .ROUTE .COMPLEX RF: 0 Premarin 0.625 mg/gram cream 1 applictn Vaginal 2XW Qty: 30 RF: 3 allopurinol 100 mg tablet 100 mg PO QPM Qty: 90 RF: 0 dexlansoprazole 60 mg capsule,biphase delayed releas 60 mg PO DAILY Qty: 30 RF: 3 melatonin 5 mg capsule 5 mg PO BEDTIME RF: 0 ranitidine HCl [Zantac] 150 mg tablet 150 mg PO BID RF: 0 aspirin 81 mg tablet,delayed release (DR/EC) 81 mg PO BEDTIME RF: 0 hydrocodone-acetaminophen 7.5-325 mg tablet 1 tab PO QPM RF: 0 Referrals: Juliana Alberts PA-C [Primary Care Provider] - <Claudio Ye DO - Last Filed: 07/23/18 15:22> Cosign ED Attending Bret Attestation: I was immediately available in the department for consultation. Documentation has been reviewed. I agree with assessment and plan.
[2018-07-23] MEDS: LIDOCAINE PATCH 1 EACH ADH..PATCH TOP (13:23)
[2018-07-23] MEDS: KETOROLAC 60 MG/2 ML VIAL IM (13:23)
[2018-07-23 14:04] VITALS: BP 105/72; PULSE 88; RESP 16; TEMP 36.8; O2SAT 99
== END 2018-07-23 14:18 | disposition home or self-care (01) ==
PROVIDERS: Emergency Provider Nurse Practitioner Family; PCP Physician Assistant
DX: M25.512 Pain in left shoulder (principal); W01.0XXA Fall on same level from slipping, tripping and stumbling without subsequent striking against object, initial encounter
CPT/HCPCS: 73030; 96372; 99282; 99283; J1885

== ENCOUNTER → 2018-07-27 10:38 | Outpatient (CLI) | payer MEDICARE, MEDICAID, SELFPAY | PROVIDERS: PCP Physician Assistant; Visit Provider Physician Assistant ==

== ENCOUNTER → 2018-08-09 09:36 | Outpatient (CLI) | payer MEDICARE, MEDICAID, SELFPAY | PROVIDERS: PCP Physician Assistant; Visit Provider Physician Assistant | DX: M85.852 Other specified disorders of bone density and structure, left thigh (principal); Z78.0 Asymptomatic menopausal state; E28.39 Other primary ovarian failure; M06.9 Rheumatoid arthritis, unspecified; Z90.722 Acquired absence of ovaries, bilateral; Z87.891 Personal history of nicotine dependence | CPT/HCPCS: 77080 ==

== ENCOUNTER → 2018-08-21 07:49 | Outpatient (CLI) | payer MEDICARE, MEDICAID, SELFPAY ==
[2018-08-21 10:14] LABS: Vitamin D 25 Hydroxy (D3) 39.1 ng/mL (30.0-100.0)
[2018-08-21 10:48] LABS: Vitamin B12 339 pg/mL (239-931)
== END ==
PROVIDERS: PCP Physician Assistant; Visit Provider Physician Assistant
DX: M81.0 Age-related osteoporosis without current pathological fracture (principal); R26.89 Other abnormalities of gait and mobility; R53.83 Other fatigue
CPT/HCPCS: 36415; 82306; 82607

== ENCOUNTER → 2018-08-25 10:46 | Outpatient (CLI) | payer MEDICARE, MEDICAID, SELFPAY ==
[2018-08-25 12:19] LABS: Erythrocyte Sedimentation Rate 23 MM/HR (0-20)
[2018-08-25 13:12] LABS: C-Reactive Protein Quant 3.1 mg/dL (<1.0)
== END ==
PROVIDERS: PCP Physician Assistant; Visit Provider Physician Assistant
DX: R79.89 Other specified abnormal findings of blood chemistry (principal)
CPT/HCPCS: 36415; 85651; 86140

== ENCOUNTER → 2018-08-26 11:03 | Outpatient (CLI) | payer MEDICARE, MEDICAID, SELFPAY ==
[2018-09-01 23:57] LABS: Calprotectin, Stool 19.5 mcg/g
== END ==
PROVIDERS: PCP Physician Assistant; Visit Provider Physician Assistant
DX: R10.9 Unspecified abdominal pain (principal); R79.82 Elevated C-reactive protein (CRP); R79.89 Other specified abnormal findings of blood chemistry
CPT/HCPCS: 83993

== ENCOUNTER → 2018-09-02 11:16 | Outpatient (CLI) | payer MEDICARE, MEDICAID, SELFPAY ==
[2018-09-04 12:01] LABS: CCP Antibody (IgG) < 16 Units (< 20)
[2018-09-04 16:39] LABS: HLA B27 POSITIVE (Negative)
== END ==
PROVIDERS: PCP Physician Assistant; Visit Provider Physician Assistant
DX: R70.0 Elevated erythrocyte sedimentation rate (principal)
CPT/HCPCS: 36415; 86200; 86812

== ENCOUNTER 2018-09-03 07:24 | Emergency (ER) | payer MEDICARE, MEDICAID, SELFPAY ==
[2018-09-03 07:41] VITALS: BP 108/95; PULSE 73; RESP 18; TEMP 36.6; O2SAT 97; BMI 30.5
--- NOTE | 2018-09-03 07:56 | ED.ABDPAIN ---
HPI - Abdominal Pain General Chief Complaint: Abdominal Pain Stated Complaint: acid reflux is out of control post endoscopy Time Seen by Provider: 09/03/18 07:32 Source: patient Mode of arrival: ambulatory Limitations: no limitations History of Present Illness HPI narrative: This is a 57-year-old female comes in with complaint of heartburn. Patient states her reflux is ?out of control.? Patient states that she has had longstanding reflux for 18 years ever since she had her gallbladder out in 2000. She states that she recently saw GI for endoscopy. She states they did not tell her the results. They states that they do want her to follow up for esophageal pH evaluation. She states that she was told to stop her Zantac, omeprazole and cannot take Nexium because she has adverse side effects. She describes them as dizziness, feeling dazed and foggy and other symptoms. Patient denies any fevers. She has been nauseated on and off but does not have any vomiting. She denies any chest pain other than feeling a symptoms of reflux running through the middle of her chest. She states she has a couple spots that are uncomfortable in her abdomen that have been there for a longstanding period of time. Patient denies any changes to bowel movements, no black or bloody stool. No urinary symptoms. No swelling in her extremities. She denies any shortness of breath. She says that she saw Amanda Alberts her primary care who prescribed Carafate but that the insurance had not authorize it. Patient states that because she has stopped her Zantac and omeprazole which were helping although she had side effects she states that CC arm since her symptoms have gotten even worse and out of control. She is quite frustrated. She denies any other surgeries. She denies any other medical issues other than some chronic memory issues and feeling off balance. She states she has been told she has B12 and vitamin-D deficient and she is scheduled for an MRI of her brain. Related Data Home Medications Medication Instructions Recorded Confirmed calcium carbonate-vitamin D3 600 1 cap PO DAILY 03/02/18 09/02/18 mg calcium-200 unit capsule multivitamin tablet 1 tab PO MOWEFR tab 03/02/18 09/02/18 melatonin 5 mg capsule 5 mg PO BEDTIME cap 06/23/18 09/02/18 CBD Oil See Rx Instructions .ROUTE .COMPLEX 07/09/18 09/02/18 aspirin 81 mg tablet,delayed 81 mg PO BEDTIME 07/09/18 09/02/18 release ascorbic acid (vitamin C) 500 mg 500 mg PO DAILY 08/24/18 09/02/18 chewable tablet cyanocobalamin (vitamin B-12) 1,000 mcg PO DAILY 08/24/18 09/02/18 1,000 mcg capsule hydrocodone 7.5 mg-acetaminophen 1 tab PO ONCE PRN tab 08/24/18 09/02/18 325 mg tablet ranitidine 150 mg tablet 150 mg PO BID 08/24/18 09/02/18 Previous Rx's Medication Instructions Recorded conjugated estrogens 0.625 mg/gram 1 applictn VAGINAL 2XW #30 gram 05/12/18 vaginal cream dexlansoprazole 60 mg 60 mg PO DAILY #30 cap 07/20/18 capsule,biphase delayed release sucralfate 100 mg/mL oral 2 gram TX BID #420 ml 09/02/18 suspension pantoprazole [Protonix] 40 mg PO DAILY #30 tab 09/03/18 Allergies Allergy/AdvReac Type Severity Reaction Status Date / Time Sulfa (Sulfonamide Allergy Severe Possible Verified 09/02/18 10:27 Antibiotics) due to [SULFA (SULFONAMIDE Celebrex ANTIBIOTICS)] allergy fenofibrate [FENOFIBRATE] Allergy Intermediate Rash Verified 09/02/18 10:27 red yeast rice Allergy Mild Rash Verified 09/02/18 10:27 [RED YEAST RICE] external genital area adhesive AdvReac Severe REDNESS, Verified 09/02/18 10:27 ITCHING AND BLISTERS FROM ADHESIVE TAPE NSAIDS (Non-Steroidal AdvReac Severe Epigastric Verified 09/02/18 10:27 Anti-Inflamma pain - suspect ulcers montelukast AdvReac Intermediate SORES IN Verified 09/02/18 10:27 MY MOUTH AND NOSTRIL latex AdvReac Mild ITCHING Verified 09/02/18 10:27 CAT DANDER Allergy Intermediate ITCHY Uncoded 08/24/18 10:49 WATER EYES, CONGESTION, RUNNY NOSE Tree pollen Allergy Intermediate [place]ch/[place] Uncoded 08/24/18 10:49 trees - Runny/Itchy nose/Eye irritation. Review of Systems Review of Systems ROS Unobtainable: All systems reviewed & are unremarkable except as noted in HPI and below Constitutional Denies chills, Denies fever(s), Denies lethargy and Denies weakness Cardiovascular Denies chest pain, Denies diaphoresis, Denies syncope, Denies irregular heart rhythm, Denies lightheadedness, Denies palpitations, Denies dyspnea, Denies dyspnea on exertion and Denies orthopnea Respiratory Denies change in phlegm color, Denies chest congestion, Denies cough, Denies excessive phlegm production, Denies dyspnea and Denies dyspnea on exertion Gastrointestinal Gastrointestinal: Reports abdominal pain, Denies melena, Denies hematochezia, Denies change in bowel habits, Reports heartburn, Denies diarrhea, Denies nausea and Denies vomiting Genitourinary Denies hematuria, Denies dysuria, Denies flank pain, Denies urinary incontinence and Denies urinary urgency Musculoskeletal Denies back pain Neurologic Denies syncope and Denies weakness Endocrine Denies palpitations [facility] Medical History Hyperlipidemia (Chronic 04/26/14) Osteoarthritis, generalized (Chronic) Obesity (Chronic) Esophageal dysmotility (Chronic 08/28/15) Elevated uric acid in blood (Resolved) GERD (gastroesophageal reflux disease) (Chronic Unknown) Speech disturbance (Chronic Unknown) Allergic rhinitis due to cat hair (Resolved) Bursitis (Resolved Unknown) Cholecystitis (Resolved Unknown) History of migraine (Resolved ~2001) Plantar fasciitis (Resolved Unknown) Smallpox (Resolved) Surgical History Hx of cholecystectomy (Resolved Unknown) Hx of knee surgery (Resolved Unknown) Hx of total hysterectomy (Resolved Unknown) History of tonsillectomy Social History (Reviewed 06/20/18 @ 22:[address] [facility] [place]) Smoking Status: Former smoker Tobacco: How many years used: 13 second hand exposure: No alcohol intake: current substance use type: does not use Social History Smoking Status: Former smoker Tobacco: How many years used: 13 second hand exposure: No alcohol intake: current substance use type: does not use Exam Narrative Exam Narrative: GENERAL: Alert and oriented x three, well nourished, well appearing male. HEENT: Head normocephalic, atraumatic, EOMI, pupils reactive, face symmetric, moist mucous membranes NECK: Supple, full range of motion CARDIOVASCULAR: Regular rate and rhythm without murmurs, rubs or gallops. RESPIRATORY: Breath sounds equal bilaterally, no wheezes rales or rhonchi. ABDOMEN: Soft, nontender. Normoactive bowel sounds all 4 quadrants. No guarding or rebound, rigidity, no mass : No CVA tenderness EXTREMITIES: Normal range of motion, no clubbing or edema. Neurovascularly intact NEUROLOGICAL: Cranial nerves II through XII grossly intact. Moving all extremities SKIN: Warm, dry, no petechiae, no rashes or lesions. Initial Vital Signs Initial Vital Signs: Vital Signs Temperature 97.9 F 09/03/18 07:41 Pulse Rate 73 09/03/18 07:41 Respiratory Rate 18 09/03/18 07:41 Blood Pressure 108/95 H 09/03/18 07:41 Pulse Oximetry 97 09/03/18 07:41 Scores HEART Score Heart Score history: Slightly Suspicious Heart Score EKG: Non-Specific repolarization disturbance Heart Score Age: 45-64 years old Heart Score risk factors: No known risk factors Heart Score troponin: < or = to normal limit Heart Score Total: 2 Course Orders Ordered: Discontinued Medications Al Hydrox/Mg Hydrox/Simethicone (Maalox Plus) 30 ml PO NOW ONE Stop: 09/03/18 07:56 Last Admin: 09/03/18 08:08 Dose: 30 ml Sodium Chloride (Normal Saline 0.9%) 1,000 mls @ 1,000 mls/hr IV BOLUS ONE Stop: 09/03/18 08:54 Vital Signs - 8 hr 09/03/18 09:45 Pulse Rate 55 L Respiratory Rate 16 Blood Pressure 106/76 Pulse Oximetry 98 MDM - Abdominal Pain Lab Data Attestation: I reviewed the patient's lab results. Result diagrams: 09/03/18 08:09 09/03/18 08:09 Lab Results 09/03/18 09/03/18 09/03/18 Range/Units 08:09 08:09 08:09 WBC 6.5 (4.5-11.0) X10^3/uL RBC 5.14 (4.0-5.2) X10^6/uL Hgb 12.9 (12.0-16.0) g/dL Hct 39.2 (36-46) % MCV 76.4 L (80-100) fL MCH 25.2 L (26-34) PG MCHC 33.0 (30-36) % RDW 16.5 H (11.6-14.8) % Plt Count 447 H (150-400) X10^3/uL Neut % (Auto) 77.6 H (50-75) % Lymph % (Auto) 15.1 L (25-40) % Park % (Auto) 7.2 (3-14) % Eos % (Auto) 0.0 L (2-4) % Baso % (Auto) 0.1 (0-2) % Neut # (Auto) 5000 (4153-3570) /uL Lymph # (Auto) 1000 L (8790-1767) /uL Park # (Auto) 500 (0-900) /uL Eos # (Auto) 0 (0-450) /uL Baso # (Auto) 0 (0-100) /uL Sodium 139 (137-145) mmol/L Potassium 3.8 (3.4-5.1) mmol/L Chloride 103 (98-107) mmol/L Carbon Dioxide 26 (22-32) mmol/L BUN 11 (7-17) mg/dL Creatinine 0.60 (0.52-1.04) mg/dL Estimated GFR > 60.0 (>60) mL/min BUN/Creatinine Ratio 18.3 (6-22) Glucose 108 H (70-100) mg/dL Calcium 9.9 (8.4-10.2) mg/dL Total Bilirubin 0.6 (0.2-1.3) mg/dL AST 22 (14-36) IU/L ALT 27 (9-52) IU/L Alkaline Phosphatase 99 (38-126) U/L Total Creatine Kinase 43 (30-135) U/L CK-MB (CK-2) TNP CK-MB (CK-2) Rel Index TNP Troponin I < 0.012 (0.01-0.034) ng/mL Total Protein 7.2 (6.3-8.2) g/dL Albumin 4.1 (3.5-5.0) g/dL Globulin 3.1 (1.7-4.1) g/dL Albumin/Globulin Ratio 1.3 (1.0-2.8) Lipase 84 (23-300) U/L Imaging Data Chest x-ray: Radiologist's impression: 13 Daisy Haines, DO Find Patient Imaging Rosalia Montes De Oca 57 F 1960 ACTIVITY DATE EXAM STATUS AUTHOR 09/03/18 07:59 Signed Ana Flynndiah 09/03/18 07:55 Signed Gee,Dillon [address] [address] XRay Report Signed Patient: Rosalia Montes De Oca [facility]#: [id number] : 9Acct:[id number] Age/Sex: 57 / FDate of Service: 09/03/18 Loc: ED Accession Number: [id number] Procedure: XR chest 1V Ordering Provider: Daisy Haines D.O. PROCEDURE: XR CHEST 1V INDICATIONS: heartburn, abdominal pain TECHNIQUE: One view of the chest was acquired. COMPARISON: [facility], CHEST 2 VIEW, 09/02/2006, 19:47. FINDINGS: Surgical changes and devices: None. Lungs and pleura: Lungs are clear. No pleural effusions or pneumothorax. Mediastinum: Mediastinal contours appear normal. Heart size is normal. Bones and chest wall: No suspicious bony lesions. Degenerative changes of the shoulders and spine are not adequately characterized. Overlying soft tissues appear unremarkable. IMPRESSION: Unremarkable chest. No acute cardiopulmonary process is evident. Dictated by: Dillon Flynn M.D. on 09/03/2018 at 8:19 Approved by: Dillon Flynn M.D. on 09/03/2018 at 8:20 US - abdomen: My impression: prelim is negative. Radiologist's impression: [address] [address] Ultrasound Report Signed Patient: Rosalia Montes De Oca [facility]#: [id number] : 9Acct:[id number] Age/Sex: 57 / FDate of Service: 09/03/18 Loc: ED Accession Number: [id number] Procedure: US abdomen complete Ordering Provider: Daisy Haines D.O. PROCEDURE: US ABDOMEN COMPLETE INDICATIONS: PAIN, REFLUX TECHNIQUE: Real-time scanning was performed of the abdominal and retroperitoneal organs, with image documentation. COMPARISON: None. FINDINGS: Liver: Liver is normal in size and homogeneous in echotexture. Gallbladder: Surgically absent Biliary ducts: Intrahepatic bile ducts are non-dilated. Extrahepatic bile duct caliber measures 8 mm. Normal is 6-7 mm or less in diameter, or 10 mm or less post-cholecystectomy. Pancreas: Visualized portions of the pancreas are sonographically normal. Spleen: The spleen is mildly enlarged at 12.3 cm in length. No focal splenic lesions are evident. Kidneys: Kidneys are normal in size and echotexture. Right kidney measures 11.3 cm long; left kidney measures 11.0 cm long. No hydronephrosis or shadowing nephrolithiasis. No solid masses. Aorta: Visualized aorta is normal in caliber at less than 3 cm. Iliacs: Proximal common iliac arteries are normal in caliber at less than 2.5 cm. IVC: Intrahepatic inferior vena cava is patent. Miscellaneous: No free abdominal fluid. IMPRESSION: 1. Prominent common bile duct probably is within normal limits given the patient's prior cholecystectomy. Correlation with liver function tests is recommended. 2. Mild splenomegaly. Dictated by: Dillon Flynn M.D. on 09/03/2018 at 8:17 Approved by: Dillon Flynn M.D. on 09/03/2018 at 8:19 ECG Data Attestation: I personally reviewed and interpreted this ECG as follows: Prior ECG tracings: available for review Interpretation: sinus rhythm, rate of 60, pr of 142, qrs of 90, qtc of 391. Nonspecific change. Prior from 5.5.19. Similar to prior. MDM Narrative Medical decision making narrative: Patient is feeling better after Maalox we discussed this is an option that she can use several times daily. Patient and I discussed she can try Protonix if she would like to. She does have a prescription for Carafate, she states it has not been authorized by insurance but we discussed that if she has the financial means she can just pay for it with love to see if it is helpful. She is frustrated with her regulatory affairs strategy specialist she felt like their office contacting her back and appropriate speed. We discussed there is a regulatory affairs strategy specialist here for hospital but they are only her twice monthly which would probably not be beneficial for her I did encourage her to follow with her regular regulatory affairs strategy specialist Dr. Mccray and to get set up for esophageal pH testing. We also discussed that if she was still having significant symptoms if she was able to tolerate the side effects she could restart her other medications. Patient's labs show no acute changes, EKG appears similar to prior. Chest x-ray is negative, ultrasound shows a mildly prominent bile duct but patient is post cholecystectomy and appropriate for that. Discharge Plan Departure Patient Disposition: Home Clinical Impression: Acid reflux Discharge Date/Time: 09/03/18 09:55 Interventions: ED Discharge Assessment Last Done: 09/03/18 09:45 Instructions: GERD Diet Activity Restrictions/Additional Instructions: Follow up with the regulatory affairs strategy specialist as planned. Follow up with your primary care physician next week for recheck. I would recommend either restarting your prior medications if you can tolerate the side effects or starting the carafate. You may take protonix if you find it helpful instead, you take carafate in addition to this medication. Your protonix was sent to [facility] in [place]. Return for fevers greater than 100.4 F, new worsening symptoms, new chest pain, shortness of breath, passing out, persistent vomiting, black or bloody stools or other new or concerning symptoms. Prescriptions: New pantoprazole [Protonix] 40 mg tablet,delayed release (DR/EC) 40 mg PO DAILY Qty: 30 RF: 0 No Action multivitamin tablet 1 tab PO MOWEFR RF: 0 Calcium 600 + D(3) 600 mg calcium- 200 unit Capsule 1 cap PO DAILY RF: 0 CBD Oil See Patient Comments .ROUTE .COMPLEX RF: 0 Premarin 0.625 mg/gram cream 1 applictn Vaginal 2XW Qty: 30 RF: 3 dexlansoprazole 60 mg capsule,biphase delayed releas 60 mg PO DAILY Qty: 30 RF: 3 melatonin 5 mg capsule 5 mg PO BEDTIME RF: 0 hydrocodone-acetaminophen 7.5-325 mg tablet 1 tab PO ONCE PRNRF: 0 ranitidine HCl 150 mg tablet 150 mg PO BID RF: 0 ascorbic acid (vitamin C) 500 mg tablet,chewable 500 mg PO DAILY RF: 0 cyanocobalamin (vitamin B-12) 1,000 mcg capsule 1,000 mcg PO DAILY RF: 0 sucralfate 100 mg/mL suspension 2 gram TX BID Qty: 420 RF: 3 aspirin 81 mg tablet,delayed release (DR/EC) 81 mg PO BEDTIME RF: 0 Referrals: Juliana Albetrs PA-C [Primary Care Provider] - Shanique Camarillo MD [Physician] -
--- NOTE | 2018-09-03 07:59 | DI.RAD.S_ITS ---
PROCEDURE: XR CHEST 1V INDICATIONS: heartburn, abdominal pain TECHNIQUE: One view of the chest was acquired. COMPARISON: [facility], , CHEST 2 VIEW, 09/02/2006, 19:47. FINDINGS: Surgical changes and devices: None. Lungs and pleura: Lungs are clear. No pleural effusions or pneumothorax. Mediastinum: Mediastinal contours appear normal. Heart size is normal. Bones and chest wall: No suspicious bony lesions. Degenerative changes of the shoulders and spine are not adequately characterized. Overlying soft tissues appear unremarkable. IMPRESSION: Unremarkable chest. No acute cardiopulmonary process is evident. Dictated by: Dillon Flynn M.D. on 09/03/2018 at 8:19 Approved by: Dillon Flynn M.D. on 09/03/2018 at 8:20
[2018-09-03] MEDS: MAG HYDROX/ALUM/SIMETH 30 ML UDC PO (08:08)
[2018-09-03 08:19] LABS: Add Manual Diff / Slide Review NO; Basophils Absolute Auto 0 /uL (0-100); Basophils Percent Auto 0.1 % (0-2); Eosinophils Absolute Auto 0 /uL (0-450); Hematocrit 39.2 % (36-46); Hemoglobin 12.9 g/dL (12.0-16.0); Lymphocytes Absolute Auto 1000 /uL (1100-4500); Lymphocytes Percent Auto 15.1 % (25-40); Mean Corpuscular Hemoglobin 25.2 PG (26-34); Mean Corpuscular Volume 76.4 fL (80-100); Monocytes Absolute Auto 500 /uL (0-900); Monocytes Percent Auto 7.2 % (3-14); Neutrophils Absolute Auto 5000 /uL (1500-7000); Neutrophils Percent Auto 77.6 % (50-75); Platelet Count 447 X10^3/uL (150-400); Red Blood Cell Count 5.14 X10^6/uL (4.0-5.2); Red Cell Distribution Width 16.5 % (11.6-14.8); White Blood Cell Count 6.5 X10^3/uL (4.5-11.0)
[2018-09-03 08:30] LABS: Creatine Kinase 43 U/L (30-135)
[2018-09-03 08:31] LABS: Alanine Aminotransferase 27 IU/L (9-52); Albumin 4.1 g/dL (3.5-5.0); Albumin Globulin Ratio 1.3 (1.0-2.8); Alkaline Phosphatase 99 U/L (38-126); Aspartate Aminotransferase 22 IU/L (14-36); BUN Creatinine Ratio 18.3 (6-22); Bilirubin Total 0.6 mg/dL (0.2-1.3); Blood Urea Nitrogen 11 mg/dL (7-17); Calcium 9.9 mg/dL (8.4-10.2); Carbon Dioxide 26 mmol/L (22-32); Chloride 103 mmol/L (98-107); Estimated Glomerular Filt Rate > 60.0 mL/min (>60); Globulin 3.1 g/dL (1.7-4.1); Glucose 108 mg/dL (70-100); HEMOLYSIS < 15 (0-50); Lipase 84 U/L (23-300); Potassium 3.8 mmol/L (3.4-5.1); Sodium 139 mmol/L (137-145); Total Protein 7.2 g/dL (6.3-8.2)
[2018-09-03 08:43] LABS: Troponin I < 0.012 ng/mL (0.01-0.034)
[2018-09-03 09:45] VITALS: BP 106/76; PULSE 55; RESP 16; O2SAT 98
== END 2018-09-03 09:55 | disposition home or self-care (01) ==
PROVIDERS: Emergency Provider Emergency Medicine; PCP Physician Assistant
DX: K21.9 Gastro-esophageal reflux disease without esophagitis (principal); R07.9 Chest pain, unspecified
CPT/HCPCS: 36415; 71045; 76700; 80053; 82550; 83690; 84484; 85025; 93005; 99282; 99285

== ENCOUNTER → 2018-09-06 07:28 | Outpatient (CLI) | payer MEDICARE, MEDICAID, SELFPAY ==
--- NOTE | 2018-09-06 07:35 | DI.MRI.S_ITS ---
PROCEDURE: MR HEAD/BRAIN WO CON INDICATIONS: Persistant vertigo; Balance problem; speech difficulty TECHNIQUE: Noncontrast axial T1 spin echo, axial T2 fast spin echo, sagittal and axial FLAIR, coronal T2 fast spin echo, axial gradient echo, axial diffusion and ADC through the brain. COMPARISON: [facility], CT, SOFT TISSUE NECK W CONTRAST, 10/13/2013, 9:06. FINDINGS: Image quality: Excellent except anteriorly inferiorly where metal artifact greater on the right than the left is noted. Presumed dental implant artifact. CSF Spaces: Basal cisterns are patent. No extra-axial fluid collections. Ventricles are normal in size and shape. Brain: No intracranial masses or hemorrhage. [place]q/white matter interface is normal. Brainstem appears normal. Diffusion-weighted images demonstrate no acute ischemic insult. No chronic ischemic insults. Normal intravascular flow voids are present. Skull and face: Calvarium has normal marrow signal. Orbits appear normal. Sinuses: Sinuses and mastoids are clear. IMPRESSION: Source of current persistent vertigo is not found. No vascular abnormality is seen. No sign of prior stroke or presence of mass lesion is detected. Dictated by: Ilir Mcclure M.D. on 09/06/2018 at 9:43 Approved by: Ilir Mcclure M.D. on 09/06/2018 at 9:45
== END ==
PROVIDERS: PCP Physician Assistant; Visit Provider Physician Assistant
DX: R26.89 Other abnormalities of gait and mobility (principal); R42 Dizziness and giddiness; R47.9 Unspecified speech disturbances
CPT/HCPCS: 70551

== ENCOUNTER → 2018-10-12 11:38 | Outpatient (CLI) | payer MEDICARE, MEDICAID, SELFPAY ==
[2018-10-12 14:40] LABS: Add Manual Diff / Slide Review NO; Basophils Absolute Auto 0 /uL (0-100); Eosinophils Absolute Auto 0 /uL (0-450); Hematocrit 38.4 % (36-46); Hemoglobin 12.6 g/dL (12.0-16.0); Lymphocytes Absolute Auto 1400 /uL (1100-4500); Lymphocytes Percent Auto 18.7 % (25-40); Mean Corpuscular HGB Conc 32.7 % (30-36); Mean Corpuscular Hemoglobin 25.1 PG (26-34); Mean Corpuscular Volume 76.8 fL (80-100); Monocytes Absolute Auto 500 /uL (0-900); Monocytes Percent Auto 6.8 % (3-14); Neutrophils Absolute Auto 5500 /uL (1500-7000); Neutrophils Percent Auto 74.5 % (50-75); Platelet Count 435 X10^3/uL (150-400); Red Blood Cell Count 5.01 X10^6/uL (4.0-5.2); Red Cell Distribution Width 15.8 % (11.6-14.8); White Blood Cell Count 7.4 X10^3/uL (4.5-11.0)
== END ==
PROVIDERS: PCP Physician Assistant; Visit Provider Physician Assistant
DX: R12 Heartburn (principal); R79.89 Other specified abnormal findings of blood chemistry
CPT/HCPCS: 36415; 85025

== ENCOUNTER → 2018-10-15 09:44 | Outpatient (CLI) | payer MEDICARE, MEDICAID, SELFPAY | PROVIDERS: PCP Physician Assistant; Visit Provider Physician Assistant | DX: R10.9 Unspecified abdominal pain (principal); R11.0 Nausea; R12 Heartburn; R14.0 Abdominal distension (gaseous) | CPT/HCPCS: 86677; 87015; 87177; 87272; 87329 ==

== ENCOUNTER → 2018-10-22 09:56 | Outpatient (CLI) | payer MEDICARE, MEDICAID, SELFPAY ==
--- NOTE | 2018-10-22 | DI.CT.S_ITS ---
PROCEDURE: CT CHEST ABD PEL W CON INDICATIONS: Mass right sternoclavicular joint area TECHNIQUE: After the administration of oral and intravenous contrast, 5 mm thick sections acquired from the lung apices to the symphysis. 5 mm coronal and sagittal reformats were performed, with additional 7 mm coronal MIP reformats through the lungs. For radiation dose reduction, the following was used: automated exposure control, adjustment of mA and/or kV according to patient size. COMPARISON: None. FINDINGS: Image quality: Excellent. CHEST: Lungs and pleura: No acute airspace opacities. 5 mm pleural-based nodule involving the periphery of the lower lingula seen on image 188, series 7. No pleural effusions or pneumothorax. Central and peripheral airways appear patent and normal in caliber. Mediastinum: Heart size is normal. There is a right atrial mass measuring approximately 4.9 x 4.2 cm in transverse dimension and 4.3 cm in craniocaudal dimension. There appeared to be small internal feeding vessels. It appears to be attached to the atrial septum. No pericardial effusion. No mediastinal or hilar adenopathy by size criteria. Thoracic aorta and central pulmonary arteries are normal in size. Esophagus is normal in caliber. Small hiatal hernia. Chest wall: No axillary or supraclavicular adenopathy by size criteria. Thyroid gland demonstrates possible 1.7 cm left inferior thyroid lobe nodule versus heterogeneous enhancement. There are degenerative changes involving the bilateral sternoclavicular joints with more pronounced hypertrophic degenerative changes on the right. No associated mass lesion. Additionally, a skin BB marker denotes the area of palpable concern which does not correlate with any underlying suspicious soft tissue mass or osseous abnormality. ABDOMEN: Solid organs: Liver is normal in size and enhancement. There a few scant tiny subcentimeter hepatic hypodensities which are too small to characterize but likely represent cysts versus hemangiomas. Focal fatty infiltration noted over the periphery of the gallbladder fossa. Gallbladder has been surgically removed. Biliary system is non dilated. Pancreas enhances normally. Spleen is normal in size and enhancement. Incidental splenules. No adrenal nodules. Kidneys demonstrate normal size and enhancement, without hydronephrosis. Visualized ureters are normal in course and caliber bilaterally. Peritoneum and bowel: No evidence for bowel obstruction or acute inflammatory changes. Extensive colonic diverticula without acute peridiverticular inflammation. There is mild colonic wall thickening particularly in the distal sigmoid and rectum which is favored to represent incomplete distention and diverticular disease. Remainder of the visualized bowel appear unremarkable. No free fluid or air. Nodes and vessels: No retroperitoneal or mesenteric adenopathy by size criteria. Aorta and inferior vena cava are normal in size. Miscellaneous: Mild diastases recti without ventral hernias. PELVIS: Genitourinary: Bladder wall thickness is within normal limits for degree of distention. Miscellaneous: No inguinal hernias or adenopathy. Bones: No suspicious bony lesions. No acute vertebral body compression fractures. Moderate multilevel spondylitic changes of the imaged spine most pronounced in the lower thoracic and throughout the lumbar spine. IMPRESSION: 1. 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 Recommend further evaluation with cardiothoracic surgical consultation. Further imaging per recommendations of surgical consultation. 2. 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 No suspicious mass lesions underlying the skin BB marker noted in close vicinity. 3. Extensive colonic diverticulosis without acute diverticulitis. 4. Mild wall thickening of the distal colon and rectum likely related to incomplete distention in combination with associated diverticular disease. However, recommend further evaluation with direct visualization/colonoscopy to exclude underlying neoplasm. 5. A possible 1.7 cm inferior right thyroid lobe nodule. Consider dedicated thyroid ultrasound for further characterization. 6. A 5 mm pleural-based lingular pulmonary nodule. Consider followup chest CT in 12 months to document stability. 7. Status post cholecystectomy. 8. Moderate multilevel spondylitic changes of the thoracic and lumbar spine. Other chronic findings as above. Right atrial mass finding discussed telephonically with Dr. Garcia at 1415 hrs. Dictated by: Clayton Gomez M.D. on 10/22/2018 at 12:41 Approved by: Clayton Gomez M.D. on 10/22/2018 at 14:17
[2018-10-22 10:25] LABS: BUN Creatinine Ratio 21.7 (6-22); Blood Urea Nitrogen 13 mg/dL (7-17); Estimated Glomerular Filt Rate > 60.0 mL/min (>60)
== END ==
PROVIDERS: PCP Physician Assistant; Visit Provider Physician Assistant
DX: R22.2 Localized swelling, mass and lump, trunk (principal); R10.9 Unspecified abdominal pain
CPT/HCPCS: 36415; 71260; 74177; 82565; 84520; Q9967

== ENCOUNTER 2018-10-27 08:56 | Emergency (ER) | payer MEDICARE, MEDICAID, SELFPAY ==
[2018-10-27] VITALS (10 sets, daily range): BP systolic 91–141; BP diastolic 57–108; PULSE 64–77; RESP 10–18; TEMP 37.1; O2SAT 13–100; BMI 30.5
--- NOTE | 2018-10-27 09:06 | DI.RAD.S_ITS ---
PROCEDURE: XR CHEST 1V INDICATIONS: chest pain TECHNIQUE: One view of the chest was acquired. COMPARISON: [facility], CR, XR CHEST 1V, 09/03/2018, 8:34. FINDINGS: Surgical changes and devices: None. Lungs and pleura: Lungs are clear. No pleural effusions or pneumothorax. Mediastinum: Mediastinal contours appear normal. Heart size is normal. Bones and chest wall: No suspicious bony lesions. Overlying soft tissues appear unremarkable. IMPRESSION: No acute cardiopulmonary disease process. Dictated by: Alicia Weston MD, PhD on 10/27/2018 at 9:20 Approved by: Alicia Weston MD, PhD on 10/27/2018 at 9:28
[2018-10-27 09:21] LABS: Add Manual Diff / Slide Review NO; Basophils Absolute Auto 0 /uL (0-100); Basophils Percent Auto 0.1 % (0-2); Eosinophils Absolute Auto 0 /uL (0-450); Hematocrit 39.4 % (36-46); Hemoglobin 12.9 g/dL (12.0-16.0); Lymphocytes Absolute Auto 1100 /uL (1100-4500); Lymphocytes Percent Auto 11.9 % (25-40); Mean Corpuscular HGB Conc 32.8 % (30-36); Mean Corpuscular Volume 76.2 fL (80-100); Monocytes Absolute Auto 600 /uL (0-900); Monocytes Percent Auto 6.4 % (3-14); Neutrophils Absolute Auto 7500 /uL (1500-7000); Neutrophils Percent Auto 81.6 % (50-75); Platelet Count 479 X10^3/uL (150-400); Red Blood Cell Count 5.18 X10^6/uL (4.0-5.2); Red Cell Distribution Width 16.4 % (11.6-14.8); White Blood Cell Count 9.2 X10^3/uL (4.5-11.0)
[2018-10-27 09:28] LABS: INR 1.1 (0.9-1.3); Prothrombin Time 12.2 SECONDS (10.1-12.7)
--- NOTE | 2018-10-27 09:28 | PC.NURSE ---
pt states, she is know with cardiac tumor and schedule for cardiac mri tomorrow, but she developed chest discomfort last night, and she was told to go to the nearest er, and to be transfered to [facility].
[2018-10-27 09:30] LABS: PTT Partial Thromboplastin Tim 41 SECONDS (26.4-36.2)
[2018-10-27 09:33] LABS: Alanine Aminotransferase 25 IU/L (9-52); Albumin 4.3 g/dL (3.5-5.0); Albumin Globulin Ratio 1.3 (1.0-2.8); Alkaline Phosphatase 102 U/L (38-126); Aspartate Aminotransferase 20 IU/L (14-36); Bilirubin Total 0.4 mg/dL (0.2-1.3); Blood Urea Nitrogen 16 mg/dL (7-17); Carbon Dioxide 25 mmol/L (22-32); Chloride 103 mmol/L (98-107); Creatine Kinase 39 U/L (30-135); Estimated Glomerular Filt Rate > 60.0 mL/min (>60); Globulin 3.4 g/dL (1.7-4.1); Glucose 109 mg/dL (80-110); HEMOLYSIS < 15 (0-50); Lipase 135 U/L (23-300); Potassium 3.5 mmol/L (3.4-5.1); Sodium 139 mmol/L (137-145); Total Protein 7.7 g/dL (6.3-8.2)
[2018-10-27 09:43] LABS: Troponin I < 0.012 ng/mL (0.01-0.034)
--- NOTE | 2018-10-27 09:51 | ED_ITS ---
HPI - Chest Pain General Chief Complaint: Chest Pain Stated Complaint: chest pain x4 days off and on Time Seen by Provider: 10/27/18 09:22 Source: patient Mode of arrival: ambulatory Limitations: no limitations History of Present Illness HPI narrative: Patient comes emergency department complaining of chest pain that started yesterday. Patient states that she was recently diagnosed with a ?heart tumor? and is supposed to see the cardiothoracic surgeon tomorrow at [facility] in [place]. He patient states that she has not had any shortness of breath with the chest pain. She has been chronically lightheaded for the last approximately 6 months, but this does not seem to be related to the chest pain or any other cardiac symptoms. No palpitations. Patient states that her dizziness is a combination of lightheaded and ?spinning?. 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 Patient states that right now, she is not having any pain in her chest. She states her last episode was last night while she was lying in bed, and woke her up from sleep. Patient states she felt 6 pulses of pain which seemed to be with each heartbeat, and then she changed position and the pain subsided. Patient states she was fine for the rest of the night. Patient also has a history of GERD. No history of NV or any underlying lung issues. Patient states that she is otherwise fairly healthy. No other complaints at this time. She states she called her cardiothoracic surgeon's office this morning, and they told her to come to the emergency department here, and that ?we would transfer her to [facility] Related Data Home Medications Medication Instructions Recorded Confirmed calcium carbonate-vitamin D3 600 1 cap PO DAILY 03/02/18 10/27/18 mg calcium-200 unit capsule multivitamin 1 tab PO DAILY tab 03/02/18 10/27/18 melatonin 5 mg capsule 5 mg PO BEDTIME cap 06/23/18 10/27/18 aspirin 81 mg tablet,delayed 81 mg PO BEDTIME 07/09/18 10/27/18 release ascorbic acid (vitamin C) 500 mg 500 mg PO DAILY 08/24/18 10/27/18 chewable tablet cyanocobalamin (vitamin B-12) 1,000 mcg PO DAILY 08/24/18 10/27/18 1,000 mcg capsule Pepto-Bismol 1 tab PO QPM 10/27/18 10/27/18 Tums 1 tab PO QPM 10/27/18 10/27/18 cholecalciferol (vitamin D3) 1,000 unit PO DAILY 10/27/18 10/27/18 [Vitamin D3] omega 9-uwj-zrm-fish oil [Fish Oil] 1 - 2 cap PO DAILY 10/27/18 10/27/18 Previous Rx's Medication Instructions Recorded conjugated estrogens 0.625 mg/gram 1 applictn VAGINAL 2XW #30 gram 05/12/18 vaginal cream Allergies Allergy/AdvReac Type Severity Reaction Status Date / Time Sulfa (Sulfonamide Allergy Severe Possible Verified 10/27/18 09:03 Antibiotics) due to [SULFA (SULFONAMIDE Celebrex ANTIBIOTICS)] allergy fenofibrate [FENOFIBRATE] Allergy Intermediate Rash Verified 10/27/18 09:03 red yeast rice Allergy Mild Rash Verified 10/27/18 09:03 [RED YEAST RICE] external genital area adhesive AdvReac Severe REDNESS, Verified 10/27/18 09:03 ITCHING AND BLISTERS FROM ADHESIVE TAPE NSAIDS (Non-Steroidal AdvReac Severe Epigastric Verified 10/27/18 09:03 Anti-Inflamma pain - suspect ulcers montelukast AdvReac Intermediate SORES IN Verified 10/27/18 09:03 MY MOUTH AND NOSTRIL latex AdvReac Mild ITCHING Verified 10/27/18 09:03 CAT DANDER Allergy Intermediate ITCHY Uncoded 10/27/18 09:03 WATER EYES, CONGESTION, RUNNY NOSE Tree pollen Allergy Intermediate Birch/Anahi Uncoded 10/27/18 09:03 trees - Runny/Itchy nose/Eye irritation. Review of Systems Constitutional Constitutional: Denies chills, Denies fatigue, Denies fever(s), Denies frequent falls, Denies lethargy and Denies weakness Eyes Eyes: Denies change in vision, Denies eye discharge, Denies irritation and Denies loss of vision ENT Ears, Nose, Mouth, and Throat: Denies change in voice, Denies dizziness, Denies neck pain, Denies sore throat and Denies throat swelling Cardiovascular Cardiovascular: Reports chest pain, Denies irregular heart rhythm, Denies lightheadedness, Denies palpitations, Denies dyspnea, Denies dyspnea on exertion and Denies orthopnea Respiratory Respiratory: Denies cough, Denies dyspnea, Denies dyspnea on exertion and Denies wheezing Gastrointestinal Gastrointestinal: Denies abdominal pain, Denies change in bowel habits, Denies diarrhea, Denies nausea and Denies vomiting Genitourinary Genitourinary: Denies hematuria, Denies flank pain, Denies urinary incontinence and Denies urinary urgency Musculoskeletal Musculoskeletal: Denies back pain, Denies muscle weakness, Denies neck pain, Denies numbness and Denies tingling Integumentary/Breasts Skin/Breast: Denies pruritus, Denies erythema, Denies rash and Denies wounds Neurologic Neurologic: Denies behavioral changes, Denies confusion, Denies dizziness, Denies frequent falls, Denies loss of vision, Denies numbness, Denies tingling and Denies weakness Psychiatric Psychiatric: Denies anxiety, Denies behavioral changes, Denies confusion, Denies depression, Denies homicidal ideation and Denies suicidal ideation Endocrine Endocrine: Denies fatigue, Denies flushing and Denies palpitations Hematologic/Lymphatic Hematologic/Lymphatic: Denies easy bruising Allergic/Immunologic Allergic/Immunologic: Denies urticaria, Denies throat swelling and Denies wheezing [facility] Medical History Allergic rhinitis due to cat hair (Resolved) Bursitis (Resolved Unknown) Cholecystitis (Resolved Unknown) Elevated uric acid in blood (Resolved) Esophageal dysmotility (Chronic 08/28/15) GERD (gastroesophageal reflux disease) (Chronic Unknown) History of migraine (Resolved ~2001) Hyperlipidemia (Chronic 04/26/14) Obesity (Chronic) Osteoarthritis, generalized (Chronic) Plantar fasciitis (Resolved Unknown) Smallpox (Resolved) Speech disturbance (Chronic Unknown) Surgical History History of tonsillectomy Hx of cholecystectomy (Resolved Unknown) Hx of knee surgery (Resolved Unknown) Hx of total hysterectomy (Resolved Unknown) Social History Smoking Status: Former smoker Tobacco: How many years used: 13 second hand exposure: No alcohol intake: current substance use type: does not use Social History Smoking Status: Former smoker Tobacco: How many years used: 13 second hand exposure: No alcohol intake: current substance use type: does not use Exam Initial Vital Signs Initial Vital Signs: Vital Signs Temperature 98.7 F 10/27/18 09:03 Pulse Rate 77 10/27/18 09:03 Respiratory Rate 18 10/27/18 09:03 Blood Pressure 141/108 H 10/27/18 09:03 Pulse Oximetry 100 10/27/18 09:03 Const General: cooperative and well developed Nutritional Appearance: well nourished Orientation: alert, awake, oriented x3 and not confused HENMT Head: normocephalic and atraumatic Ears: external ears normal and TM's normal bilaterally Nose: external nose normal and No nasal discharge Face and sinus: sinuses nontender, face symmetric, no sinus tenderness and No dry mucous membranes Mouth: oral mucosae normal and moist mucous membranes Teeth and gingiva: dentition normal Throat: tonsils normal and uvula midline Eyes General: appearance normal, both eyes and all related structures Eyelids: eyelids normal Conjunctivae: conjunctivae normal Sclera: sclerae normal Pupils: PERRL EOM: EOM intact bilaterally Neck Neck: normal visual inspection, trachea midline, No lymphadenopathy, No midline deformity and No JVD Lymphatic: No lymphedema Chest Chest: normal inspection of the chest Resp Effort & Inspection: normal respiratory effort, able to speak in complete sentences, no respiratory distress and no use of accessory muscles Auscultation: clear to auscultation bilaterally, no rales, no rhonchi and no wheezes Cardio Rate: regular rate Rhythm: regular rhythm Heart Sounds: no click, no gallops, no murmurs and no rubs Pulses: normal peripheral pulses Other: Patient has no murmur or other accessory sounds. Blood pressure is normal at 108/68. GI Inspection: non-distended Palpation: soft, no hepatosplenomegaly, No guarding, No pulsatile mass and No tender Auscultation: normal bowel sounds Back/Spine/Pelvis Back: No CVA tenderness Cervical Spine: cervical ROM normal and No pain with cervical ROM Thoracic/Lumbar Spine: thoracic and lumbar spine normal to inspection Skin General: no rashes or lesions noted, No jaundice and No petechiae Neuro General: alert, oriented x3, gait normal and no focal motor deficits Speech: speech normal Extrem General: full ROM, no clubbing, cyanosis or edema, no pedal edema and no calf tenderness Psych Appearance: well kempt Mental Status: mental status grossly normal Attitude: cooperative Thought Content: normal and suicidality Judgment: judgment good Course Course Course Narrative: Patient was worked up with labs, chest x-ray and EKG, which were unremarkable. The patient's case was discussed with Dr. Woody, the cardiothoracic surgeon who is scheduled to see the patient in follow-up tomorrow. He stated that he felt the patient should be transferred to [place] for workup and likely urgent removal of the atrial tumor. He requested that I speak with hospitalist service to arrange for admission, and I did speak with Dr. Rey, who accepted the patient transfer. Orders Ordered: ED Orders 10/27/18 08:59 EKG-12 Lead Stat 10/27/18 09:06 XR chest 1V Stat 10/27/18 09:15 Complete Blood Count AUTO DIFF Stat Comprehensive Metabolic Panel Stat Lipase Stat Partial Thromboplastin Time Stat Prothrombin Time INR Stat Troponin & CK Cardiac Panel Stat 10/27/18 10:50 Urine Microscopic Stat Vital Signs Vital signs: Vital Signs - 8 hr 10/27/18 09:03 10/27/18 09:30 10/27/18 10:00 Temperature 98.7 F Pulse Rate 77 65 67 Respiratory Rate 18 16 13 Blood Pressure 141/108 H Blood Pressure [Right Arm] 108/64 94/57 L Pulse Oximetry 100 99 97 10/27/18 10:30 10/27/18 11:00 10/27/18 11:30 Temperature Pulse Rate 66 67 64 Respiratory Rate 13 13 17 Blood Pressure Blood Pressure [Right Arm] 91/62 95/65 93/64 Pulse Oximetry 98 13 L 100 MDM - Chest Pain Medical Records Data Attestation: I reviewed the patient's medical records. Lab Data Attestation: I reviewed the patient's lab results. Result diagrams: 10/27/18 09:15 10/27/18 09:15 Labs: Lab Results 10/27/18 10/27/18 10/27/18 Range/Units 09:15 09:15 09:15 WBC 9.2 (4.5-11.0) X10^3/uL RBC 5.18 (4.0-5.2) X10^6/uL Hgb 12.9 (12.0-16.0) g/dL Hct 39.4 (36-46) % MCV 76.2 L (80-100) fL MCH 25.0 L (26-34) PG MCHC 32.8 (30-36) % RDW 16.4 H (11.6-14.8) % Plt Count 479 H (150-400) X10^3/uL Neut % (Auto) 81.6 H (50-75) % Lymph % (Auto) 11.9 L (25-40) % [place] % (Auto) 6.4 (3-14) % Eos % (Auto) 0.0 L (2-4) % Baso % (Auto) 0.1 (0-2) % Neut # (Auto) 7500 H (9408-3734) /uL Lymph # (Auto) 1100 (6667-0005) /uL [place] # (Auto) 600 (0-900) /uL Eos # (Auto) 0 (0-450) /uL Baso # (Auto) 0 (0-100) /uL PT 12.2 (10.1-12.7) SECONDS INR 1.1 (0.9-1.3) APTT 41 H D (26.4-36.2) SECONDS Sodium 139 (137-145) mmol/L Potassium 3.5 (3.4-5.1) mmol/L Chloride 103 (98-107) mmol/L Carbon Dioxide 25 (22-32) mmol/L BUN 16 (7-17) mg/dL Creatinine 0.50 L (0.52-1.04) mg/dL Estimated GFR > 60.0 (>60) mL/min BUN/Creatinine Ratio 32.0 H (6-22) Glucose 109 (80-110) mg/dL Calcium 10.0 (8.4-10.2) mg/dL Total Bilirubin 0.4 (0.2-1.3) mg/dL AST 20 (14-36) IU/L ALT 25 (9-52) IU/L Alkaline Phosphatase 102 (38-126) U/L Total Creatine Kinase 39 (30-135) U/L CK-MB (CK-2) TNP CK-MB (CK-2) Rel Index TNP Troponin I < 0.012 (0.01-0.034) ng/mL Total Protein 7.7 (6.3-8.2) g/dL Albumin 4.3 (3.5-5.0) g/dL Globulin 3.4 (1.7-4.1) g/dL Albumin/Globulin Ratio 1.3 (1.0-2.8) Lipase 135 (23-300) U/L Urine RBC (0-5/HPF) Urine WBC (0-5/HPF) Ur Squamous Epith Cells (0-5/HPF) Amorphous Sediment Urine Bacteria (None) Ur Culture Indicated? 10/27/18 Range/Units 10:50 WBC (4.5-11.0) X10^3/uL RBC (4.0-5.2) X10^6/uL Hgb (12.0-16.0) g/dL Hct (36-46) % MCV (80-100) fL MCH (26-34) PG MCHC (30-36) % RDW (11.6-14.8) % Plt Count (150-400) X10^3/uL Neut % (Auto) (50-75) % Lymph % (Auto) (25-40) % [place] % (Auto) (3-14) % Eos % (Auto) (2-4) % Baso % (Auto) (0-2) % Neut # (Auto) (7702-3124) /uL Lymph # (Auto) (8555-0619) /uL [place] # (Auto) (0-900) /uL Eos # (Auto) (0-450) /uL Baso # (Auto) (0-100) /uL PT (10.1-12.7) SECONDS INR (0.9-1.3) APTT (26.4-36.2) SECONDS Sodium (137-145) mmol/L Potassium (3.4-5.1) mmol/L Chloride (98-107) mmol/L Carbon Dioxide (22-32) mmol/L BUN (7-17) mg/dL Creatinine (0.52-1.04) mg/dL Estimated GFR (>60) mL/min BUN/Creatinine Ratio (6-22) Glucose (80-110) mg/dL Calcium (8.4-10.2) mg/dL Total Bilirubin (0.2-1.3) mg/dL AST (14-36) IU/L ALT (9-52) IU/L Alkaline Phosphatase (38-126) U/L Total Creatine Kinase (30-135) U/L CK-MB (CK-2) CK-MB (CK-2) Rel Index Troponin I (0.01-0.034) ng/mL Total Protein (6.3-8.2) g/dL Albumin (3.5-5.0) g/dL Globulin (1.7-4.1) g/dL Albumin/Globulin Ratio (1.0-2.8) Lipase (23-300) U/L Urine RBC 0-1/hpf (0-5/HPF) Urine WBC None seen (0-5/HPF) Ur Squamous Epith Cells 1-5 /hpf (0-5/HPF) Amorphous Sediment 2+ Urine Bacteria None seen (None) Ur Culture Indicated? Cult not indicated Urine Dip Bedside Urine Glucose Negative Bedside Urine Bilirubin - Negative Bedside Urine Ketone - Negative Urine Specific [place] 1.010 Bedside Urine Occult Blood +/- Bedside Urine pH 6.5 Bedside Urine Protein - Negative Bedside Urine Urobilinogen - Negative Bedside Urine Nitrite - Negative Bedside Urine Leukocytes - Negative Esterase Imaging Data Chest x-ray: Radiologist's impression: PROCEDURE: XR CHEST 1V INDICATIONS: chest pain TECHNIQUE: One view of the chest was acquired. COMPARISON: [facility], , XR CHEST 1V, 09/03/2018, 8:34. FINDINGS: Surgical changes and devices: None. Lungs and pleura: Lungs are clear. No pleural effusions or pneumothorax. Mediastinum: Mediastinal contours appear normal. Heart size is normal. Bones and chest wall: No suspicious bony lesions. Overlying soft tissues appear unremarkable. IMPRESSION: No acute cardiopulmonary disease process. Dictated by: Alicia Weston MD, PhD on 10/27/2018 at 9:20 Approved by: Alicia Weston MD, PhD on 10/27/2018 at 9:28 ECG Data Attestation: I personally reviewed and interpreted this ECG as follows: (See below) Prior ECG tracings: not available for review Interpretation: Twelve lead EKG performed October 27, 2018 at 8:59 a.m., as follows: Regular ventricular rhythm with a rate of 73 beats per minute NM interval is 137 millisecond QRS duration 93 millisecond QTC interval 400 millisecond normal axis No ectopy No significant ST T wave changes Interpretation: Normal sinus rhythm; low QRS voltage in extremity leads; minimal ST depression; borderline EKG as interpreted by ED MD. Discharge Plan Departure Patient Disposition: [facility] Clinical Impression: Atrial myxoma Chest pain Qualifiers: Chest pain type: unspecified Qualified Code(s): R07.9 - Chest pain, unspecified Discharge Date/Time: 10/27/18 14:06 Prescriptions: No Action multivitamin tablet 1 tab PO DAILY RF: 0 Calcium 600 + D(3) 600 mg calcium- 200 unit Capsule 1 cap PO DAILY RF: 0 Premarin 0.625 mg/gram cream 1 applictn Vaginal 2XW Qty: 30 RF: 3 melatonin 5 mg capsule 5 mg PO BEDTIME RF: 0 ascorbic acid (vitamin C) 500 mg tablet,chewable 500 mg PO DAILY RF: 0 cyanocobalamin (vitamin B-12) 1,000 mcg capsule 1,000 mcg PO DAILY RF: 0 aspirin 81 mg tablet,delayed release (DR/EC) 81 mg PO BEDTIME RF: 0 omega 8-ysg-lwn-fish oil [Fish Oil] 1,000 mg (120 mg-180 mg) Capsule 1 - 2 cap PO DAILY RF: 0 cholecalciferol (vitamin D3) [Vitamin D3] 1,000 unit Capsule 1,000 unit PO DAILY RF: 0 Pepto-Bismol 1 tab PO QPM RF: 0 Tums 1 tab PO QPM RF: 0 Referrals: Juliana Alberts PA-C [Primary Care Provider] -
[2018-10-27 10:56] LABS: Bacteria Urine None Seen; WBC Urine None Seen (0-5/HPF)
[2018-10-27 11:08] LABS: Amorphous Sediment Urine 2+; Culture Indicated Urine Cult Not Indicated; RBC Urine 0-1/HPF (0-5/HPF); Squamous Epithelial Cell Urine 1-5 /HPF (0-5/HPF)
--- NOTE | 2018-10-27 13:28 | PC.NURSE ---
called [facility], , it hasnt been assigned to a nurse, and to call back
== END 2018-10-27 14:06 | disposition short-term general hospital (02) ==
PROVIDERS: Emergency Provider Emergency Medicine; PCP Physician Assistant
DX: D15.1 Benign neoplasm of heart (principal); R07.9 Chest pain, unspecified
CPT/HCPCS: 36591; 71045; 80053; 81003; 81015; 82550; 83690; 84484; 85025; 85610; 85730; 93005; 93010; 99285

== ENCOUNTER 2018-11-25 10:11 | Emergency (ER) | payer MEDICARE, MEDICAID, SELFPAY ==
[2018-11-25 10:25] VITALS: BP 107/70; PULSE 82; RESP 16; TEMP 36.7; O2SAT 99
[2018-11-25 11:51] LABS: Add Manual Diff / Slide Review NO; Basophils Absolute Auto 0 /uL (0-100); Basophils Percent Auto 0.1 % (0-2); Eosinophils Absolute Auto 0 /uL (0-450); Eosinophils Percent Auto 0.2 % (2-4); Hematocrit 38.5 % (36-46); Hemoglobin 12.7 g/dL (12.0-16.0); INR 0.9 (0.9-1.3); Lymphocytes Absolute Auto 1200 /uL (1100-4500); Lymphocytes Percent Auto 23.6 % (25-40); Mean Corpuscular HGB Conc 32.9 % (30-36); Mean Corpuscular Hemoglobin 25.8 PG (26-34); Mean Corpuscular Volume 78.5 fL (80-100); Monocytes Absolute Auto 400 /uL (0-900); Monocytes Percent Auto 8.7 % (3-14); Neutrophils Absolute Auto 3400 /uL (1500-7000); Neutrophils Percent Auto 67.4 % (50-75); Platelet Count 395 X10^3/uL (150-400); Prothrombin Time 10.8 SECONDS (10.1-12.7); Red Blood Cell Count 4.91 X10^6/uL (4.0-5.2); Red Cell Distribution Width 18.1 % (11.6-14.8); White Blood Cell Count 5.1 X10^3/uL (4.5-11.0)
[2018-11-25 11:53] LABS: PTT Partial Thromboplastin Tim 38 SECONDS (26.4-36.2)
[2018-11-25 11:59] LABS: Alanine Aminotransferase 29 IU/L (9-52); Albumin 4.2 g/dL (3.5-5.0); Albumin Globulin Ratio 1.4 (1.0-2.8); Alkaline Phosphatase 94 U/L (38-126); Aspartate Aminotransferase 30 IU/L (14-36); Bilirubin Total 0.3 mg/dL (0.2-1.3); Blood Urea Nitrogen 21 mg/dL (7-17); Calcium 9.8 mg/dL (8.4-10.2); Carbon Dioxide 26 mmol/L (22-32); Chloride 103 mmol/L (98-107); Creatine Kinase 55 U/L (30-135); Estimated Glomerular Filt Rate > 60.0 mL/min (>60); Globulin 3.1 g/dL (1.7-4.1); Glucose 98 mg/dL (80-110); HEMOLYSIS < 15 (0-50); Magnesium 2.1 mg/dL (1.6-2.3); Potassium 4.1 mmol/L (3.4-5.1); Sodium 138 mmol/L (137-145); Total Protein 7.3 g/dL (6.3-8.2)
[2018-11-25 12:11] LABS: Troponin I < 0.012 ng/mL (0.01-0.034)
[2018-11-25 12:20] LABS: Procalcitonin < 0.05 ng/mL (<0.5)
--- NOTE | 2018-11-25 12:52 | ED.EXTPRO ---
HPI - Extremity Problem General Chief complaint: Extremity Problem,Nontraumatic Stated complaint: Low Blood sugar after heart Surgery Time Seen by Provider: 11/25/18 10:14 Source: patient Mode of arrival: Ambulatory History of Present Illness HPI Narrative: 58-year-old female former smoker with history of recent atrial myxoma surgery presents with ongoing vague dizziness. She states that she has been having this dizziness for many months and the thought was that her surgery would fix it. She states that she continues to have vague episodes of dizziness in the aftermath of her surgery and wants answers. She states that she had some low blood sugar earlier today and measured at 96 but then ate and had something to drink. Her dizziness, as stated, is vague and at times she feels dizzy lying flat, at other times she feels it when standing moving. This has been addressed on multiple occasions by her primary care provider whom has been very thorough and diligent in her evaluation including MRIs among other things. She denies any chest pain or shortness of breath, no fever or chills nor nausea or. She is otherwise at her baseline but does states that she has had a few episodes of spasming pain in her left calf MD Complaint: extremity pain Onset (ago): day(s) Location: left Quality: aching Radiation: none Relieving factors: nothing Exacerbating factors: nothing Associated symptoms: other Related Data Home Medications Medication Instructions Recorded Confirmed calcium carbonate-vitamin D3 600 1 cap PO DAILY 03/02/18 10/27/18 mg calcium-200 unit capsule multivitamin 1 tab PO DAILY tab 03/02/18 10/27/18 melatonin 5 mg capsule 5 mg PO BEDTIME cap 06/23/18 10/27/18 aspirin 81 mg tablet,delayed 81 mg PO BEDTIME 07/09/18 10/27/18 release ascorbic acid (vitamin C) 500 mg 500 mg PO DAILY 08/24/18 10/27/18 chewable tablet cyanocobalamin (vitamin B-12) 1,000 mcg PO DAILY 08/24/18 10/27/18 1,000 mcg capsule Pepto-Bismol 1 tab PO QPM 10/27/18 10/27/18 Tums 1 tab PO QPM 10/27/18 10/27/18 cholecalciferol (vitamin D3) 1,000 unit PO DAILY 10/27/18 10/27/18 [Vitamin D3] omega 0-zsq-vcn-fish oil [Fish Oil] 1 - 2 cap PO DAILY 10/27/18 10/27/18 Previous Rx's Medication Instructions Recorded conjugated estrogens 0.625 mg/gram 1 applictn VAGINAL 2XW #30 gram 05/12/18 vaginal cream Allergies Allergy/AdvReac Type Severity Reaction Status Date / Time Sulfa (Sulfonamide Allergy Severe Possible Verified 10/27/18 09:03 Antibiotics) due to [SULFA (SULFONAMIDE Celebrex ANTIBIOTICS)] allergy fenofibrate [FENOFIBRATE] Allergy Intermediate Rash Verified 10/27/18 09:03 red yeast rice Allergy Mild Rash Verified 10/27/18 09:03 [RED YEAST RICE] external genital area adhesive AdvReac Severe REDNESS, Verified 10/27/18 09:03 ITCHING AND BLISTERS FROM ADHESIVE TAPE NSAIDS (Non-Steroidal AdvReac Severe Epigastric Verified 10/27/18 09:03 Anti-Inflamma pain - suspect ulcers montelukast AdvReac Intermediate SORES IN Verified 10/27/18 09:03 MY MOUTH AND NOSTRIL latex AdvReac Mild ITCHING Verified 10/27/18 09:03 CAT DANDER Allergy Intermediate ITCHY Uncoded 10/27/18 09:03 WATER EYES, CONGESTION, RUNNY NOSE Tree pollen Allergy Intermediate Birch/Anahi Uncoded 10/27/18 09:03 trees - Runny/Itchy nose/Eye irritation. Review of Systems Constitutional Constitutional: Denies chills, Denies fatigue, Denies fever(s), Denies frequent falls, Denies lethargy and Denies weakness Eyes Eyes: Denies change in vision, Denies eye discharge, Denies irritation and Denies loss of vision ENT Ears, Nose, Mouth, and Throat: Denies change in voice, Denies dizziness, Denies neck pain, Denies sore throat and Denies throat swelling Cardiovascular Cardiovascular: Denies chest pain, Denies irregular heart rhythm, Denies lightheadedness, Denies palpitations, Denies dyspnea, Denies dyspnea on exertion and Denies orthopnea Respiratory Respiratory: Denies cough, Denies dyspnea, Denies dyspnea on exertion and Denies wheezing Gastrointestinal Gastrointestinal: Denies abdominal pain, Denies change in bowel habits, Denies diarrhea, Denies nausea and Denies vomiting Genitourinary Genitourinary: Denies hematuria, Denies flank pain, Denies urinary incontinence and Denies urinary urgency Musculoskeletal Musculoskeletal: Denies back pain, Denies muscle weakness, Denies neck pain, Denies numbness and Denies tingling Integumentary/Breasts Skin/Breast: Denies pruritus, Denies erythema, Denies rash and Denies wounds Neurologic Neurologic: Denies behavioral changes, Denies confusion, Denies dizziness, Denies frequent falls, Denies loss of vision, Denies numbness, Denies tingling and Denies weakness Psychiatric Psychiatric: Denies anxiety, Denies behavioral changes, Denies confusion, Denies depression, Denies homicidal ideation and Denies suicidal ideation Endocrine Endocrine: Denies fatigue, Denies flushing and Denies palpitations Hematologic/Lymphatic Hematologic/Lymphatic: Denies easy bruising Allergic/Immunologic Allergic/Immunologic: Denies urticaria, Denies throat swelling and Denies wheezing [facility] Medical History Allergic rhinitis due to cat hair (Resolved) Bursitis (Resolved Unknown) Cholecystitis (Resolved Unknown) Elevated uric acid in blood (Resolved) Esophageal dysmotility (Chronic 08/28/15) GERD (gastroesophageal reflux disease) (Chronic Unknown) History of migraine (Resolved ~2001) Hyperlipidemia (Chronic 04/26/14) Obesity (Chronic) Osteoarthritis, generalized (Chronic) Plantar fasciitis (Resolved Unknown) Smallpox (Resolved) Speech disturbance (Chronic Unknown) Surgical History History of tonsillectomy Hx of cholecystectomy (Resolved Unknown) Hx of knee surgery (Resolved Unknown) Hx of total hysterectomy (Resolved Unknown) Social History Smoking Status: Former smoker Tobacco: How many years used: 13 second hand exposure: No alcohol intake: current substance use type: does not use Social History Smoking Status: Former smoker Tobacco: How many years used: 13 second hand exposure: No alcohol intake: current substance use type: does not use Exam Narrative Exam Narrative: GENERAL: [58] year old patient appears stated age. Well-nourished, well-developed patient, in mild distress. HEAD: Atraumatic. Normocephalic. EYES: Pupils equal round and reactive. Extraocular motions intact. No scleral icterus. No injection or drainage. ENT: Nose without bleeding, purulent drainage. Throat without erythema, tonsillar hypertrophy or exudate. Airway patent. NECK: Trachea midline. Non tender CARDIOVASCULAR: Regular rate and rhythm without murmurs, gallops, or rubs. Appropriately healing incision RESPIRATORY: Clear to auscultation. Breath sounds equal bilaterally. No wheezes, rales, or rhonchi. GASTROINTESTINAL: Abdomen soft, non-tender, nondistended. EXTREMITIES: No edema or joint tenderness. BACK: Nontender without deformity or crepitance. No flank tenderness. NEURO: AOx3. SKIN: No rash or erythema of visible areas NIH Stroke Scale 1a. LOC: Patient is alert and keenly responsive (0) 1b. LOC Questions: Patient answers both LOC questions accurately (0) 1c. LOC Commands: Patient performs both tasks correctly (0) 2. Best Gaze: Normal (0) 3. Visual: No visual loss (0) 4. Facial palsy: Normal symmetrical movements (0) 5. Motor arm: No drift (0) 6. Motor leg: No drift (0) 7. Limb ataxia: Absent (0) 8. Sensory: Normal (0) 9. Best language: No aphasia; normal (0) 10. Dysarthria: Normal (0) 11. Extinction and inattention: No abnormality (0) NIHSS: 0 Initial Vital Signs Initial Vital Signs: Vital Signs Temperature 98.0 F 11/25/18 10:25 Pulse Rate 82 11/25/18 10:25 Respiratory Rate 16 11/25/18 10:25 Blood Pressure 107/70 11/25/18 10:25 Pulse Oximetry 99 11/25/18 10:25 Course Orders Ordered: ED Orders 11/25/18 10:57 EKG-12 Lead Routine 11/25/18 11:20 Complete Blood Count AUTO DIFF Stat Comprehensive Metabolic Panel Stat Magnesium Stat Partial Thromboplastin Time Stat Procalcitonin Stat Prothrombin Time INR Stat Troponin & CK Cardiac Panel Stat 11/25/18 13:41 CT head/brain wo con Stat US periph venous low extrem lt Stat Vital Signs Vital signs: Vital Signs - 8 hr 11/25/18 13:21 11/25/18 14:42 11/25/18 15:15 Pulse Rate 73 68 69 Respiratory Rate 14 15 18 Blood Pressure 107/51 L Blood Pressure [Left Arm] 105/63 102/62 Pulse Oximetry 98 100 100 MDM - Extremity (Nontraumatic) Lab Data Result diagrams: 11/25/18 11:20 11/25/18 11:20 Labs: Lab Results 11/25/18 11/25/18 11/25/18 Range/Units 11:20 11:20 11:20 WBC 5.1 (4.5-11.0) X10^3/uL RBC 4.91 (4.0-5.2) X10^6/uL Hgb 12.7 (12.0-16.0) g/dL Hct 38.5 (36-46) % MCV 78.5 L (80-100) fL MCH 25.8 L (26-34) PG MCHC 32.9 (30-36) % RDW 18.1 H (11.6-14.8) % Plt Count 395 (150-400) X10^3/uL Neut % (Auto) 67.4 (50-75) % Lymph % (Auto) 23.6 L (25-40) % Broome % (Auto) 8.7 (3-14) % Eos % (Auto) 0.2 L (2-4) % Baso % (Auto) 0.1 (0-2) % Neut # (Auto) 3400 (2453-9013) /uL Lymph # (Auto) 1200 (7151-3554) /uL Broome # (Auto) 400 (0-900) /uL Eos # (Auto) 0 (0-450) /uL Baso # (Auto) 0 (0-100) /uL PT 10.8 (10.1-12.7) SECONDS INR 0.9 (0.9-1.3) APTT 38 H D (26.4-36.2) SECONDS Sodium 138 (137-145) mmol/L Potassium 4.1 (3.4-5.1) mmol/L Chloride 103 (98-107) mmol/L Carbon Dioxide 26 (22-32) mmol/L BUN 21 H (7-17) mg/dL Creatinine 0.50 L (0.52-1.04) mg/dL Estimated GFR > 60.0 (>60) mL/min BUN/Creatinine Ratio 42.0 H (6-22) Glucose 98 (80-110) mg/dL Calcium 9.8 (8.4-10.2) mg/dL Magnesium 2.1 (1.6-2.3) mg/dL Total Bilirubin 0.3 (0.2-1.3) mg/dL AST 30 (14-36) IU/L ALT 29 (9-52) IU/L Alkaline Phosphatase 94 (38-126) U/L Total Creatine Kinase 55 (30-135) U/L CK-MB (CK-2) TNP CK-MB (CK-2) Rel Index TNP Troponin I < 0.012 (0.01-0.034) ng/mL Total Protein 7.3 (6.3-8.2) g/dL Albumin 4.2 (3.5-5.0) g/dL Globulin 3.1 (1.7-4.1) g/dL Albumin/Globulin Ratio 1.4 (1.0-2.8) Procalcitonin (<0.5) ng/mL 11/25/18 Range/Units 11:20 WBC (4.5-11.0) X10^3/uL RBC (4.0-5.2) X10^6/uL Hgb (12.0-16.0) g/dL Hct (36-46) % MCV (80-100) fL MCH (26-34) PG MCHC (30-36) % RDW (11.6-14.8) % Plt Count (150-400) X10^3/uL Neut % (Auto) (50-75) % Lymph % (Auto) (25-40) % Broome % (Auto) (3-14) % Eos % (Auto) (2-4) % Baso % (Auto) (0-2) % Neut # (Auto) (3019-5679) /uL Lymph # (Auto) (7988-3110) /uL Broome # (Auto) (0-900) /uL Eos # (Auto) (0-450) /uL Baso # (Auto) (0-100) /uL PT (10.1-12.7) SECONDS INR (0.9-1.3) APTT (26.4-36.2) SECONDS Sodium (137-145) mmol/L Potassium (3.4-5.1) mmol/L Chloride (98-107) mmol/L Carbon Dioxide (22-32) mmol/L BUN (7-17) mg/dL Creatinine (0.52-1.04) mg/dL Estimated GFR (>60) mL/min BUN/Creatinine Ratio (6-22) Glucose (80-110) mg/dL Calcium (8.4-10.2) mg/dL Magnesium (1.6-2.3) mg/dL Total Bilirubin (0.2-1.3) mg/dL AST (14-36) IU/L ALT (9-52) IU/L Alkaline Phosphatase (38-126) U/L Total Creatine Kinase (30-135) U/L CK-MB (CK-2) CK-MB (CK-2) Rel Index Troponin I (0.01-0.034) ng/mL Total Protein (6.3-8.2) g/dL Albumin (3.5-5.0) g/dL Globulin (1.7-4.1) g/dL Albumin/Globulin Ratio (1.0-2.8) Procalcitonin < 0.05 (<0.5) ng/mL Imaging Data CT scan - head: Radiologist's impression: Chart Viewer Diagnostics DATE TYPE STATUS AUTHOR Hx 11/25/18 13:41 Ilir Mcclure 11/25/18 13:41 Lamonte Lee 10/28/18 10:14 Radial Artery Mapping R. 10/28/18 10:13 Echocardiogram 10/28/18 10:12 Radial Artery Mapping R. 10/27/18 09:06 Alicia Weston 10/27/18 08:56 10/22/18 00:00 Clayton Gomez 09/06/18 07:35 Ilir Mcclure 09/03/18 07:59 Dillon Flynn 09/03/18 07:55 Dillon Flynn 08/09/18 09:39 08/09/18 08:19 07/23/18 12:18 Spenser Jara 05/20/18 00:00 Clayton Gomez 06/29/17 00:00 Dillon Flynn Lisbeth M 58, F1960 DEP ER, Main ED 89.811kg Extremity Problem,Nontraumatic Search Chart Preferred Name Possible due to Celebrex allergy Rash Rash external genital area REDNESS, ITCHING AND BLISTERS FROM ADHESIVE TAPE Epigastric pain - suspect ulcers SORES IN MY MOUTH AND NOSTRIL ITCHING ITCHY WATER EYES, CONGESTION, RUNNY NOSE Birch/[place] trees - Runny/Itchy nose/Eye irritation. ONSET 04/26/14 08/28/15 Today 15:15 Rosalia Montes De Oca 58 F 1960 [place] [address] CT Scan Report Signed Patient: Rosalia Montes De Oca MMR#: [id number] : 1960cct:[id number] Age/Sex: 58 / FDate of Service: 11/25/18 Loc: ED Accession Number: [id number] Procedure: CT head/brain wo con Ordering Provider: Claudio Ye D.O. PROCEDURE: CT HEAD/BRAIN WO CON INDICATIONS: dizziness TECHNIQUE: Noncontrast 4.5 mm thick angled axial sections acquired from the foramen magnum to the vertex, with coronal and sagittal reformats. For radiation dose reduction, the following was used: automated exposure control, adjustment of mA and/or kV according to patient size. COMPARISON: None. FINDINGS: Image quality: Excellent. CSF spaces: Basal cisterns are patent. No extra-axial fluid collections. The ventricles are symmetric in size and shape. Brain: No intracranial bleeds or masses. There is cerebral volume loss for age, with resultant ventricular and sulcal prominence. There are periventricular and deep white matter chronic small vessel ischemic changes. There is intracranial internal carotid artery atherosclerosis. Skull and face: Calvarium and visualized facial bones appear intact, without suspicious lesions. Sinuses: Visualized sinuses and mastoids are clear. IMPRESSION: No acute intracranial abnormality. Dictated by: Lamonte Lee M.D. on 11/25/2018 at 14:15 Approved by: aLmonte Lee M.D. on 11/25/2018 at 14:16 Venous US: Radiologist's impression: Chart Viewer Diagnostics DATE TYPE STATUS AUTHOR Ten 11/25/18 13:41 Ilir Mcclure 11/25/18 13:41 Lamonte Lee 10/28/18 10:14 Radial Artery Mapping R. 10/28/18 10:13 Echocardiogram 10/28/18 10:12 Radial Artery Mapping R. 10/27/18 09:06 Alicia Weston 10/27/18 08:56 10/22/18 00:00 Clayton Gomez 09/06/18 07:35 Ilir Mcclure 09/03/18 07:59 Dudley Flynndidiah 09/03/18 07:55 GeeDillon 08/09/18 09:39 08/09/18 08:19 07/23/18 12:18 Spenser Jara 05/20/18 00:00 Clayton Gomez 06/29/17 00:00 Dudley Flynndidibailey BlackwellsandyRosalia jimenez 58, F1960 [facility] ER, Main ED 89.811kg Extremity Problem,Nontraumatic Search Chart Preferred Name Possible due to Celebrex allergy Rash Rash external genital area REDNESS, ITCHING AND BLISTERS FROM ADHESIVE TAPE Epigastric pain - suspect ulcers SORES IN MY MOUTH AND NOSTRIL ITCHING ITCHY WATER EYES, CONGESTION, RUNNY NOSE Birch/[place] trees - Runny/Itchy nose/Eye irritation. ONSET 04/26/14 08/28/15 Today 15:15 Rosalia Montes De Oca 58 [place] 1960 [place] [address] Ultrasound Report Signed Patient: Rosalia Montes De Oca [facility]#: [id number] : 9Acct:[id number] Age/Sex: 58 / FDate of Service: 11/25/18 Loc: ED Accession Number: [id number] Procedure: US periph venous low extrem lt Ordering Provider: Claudio Ye D.O. PROCEDURE: US PERIPH VENOUS LOW EXTREM LT INDICATIONS: CALF PAIN TECHNIQUE: Real-time imaging, as well as color and pulse Doppler interrogation, were performed of the lower extremity deep veins from the inguinal ligament to the popliteal fossa. COMPARISON: None. FINDINGS: The common femoral, femoral and popliteal veins are normally compressible, and free of intraluminal thrombus. Color and pulse Doppler demonstrate normal phasic intraluminal flow. There is normal augmentation response to distal compression maneuver. IMPRESSION: No DVT found left leg. Dictated by: Ilir Mcclure M.D. on 11/25/2018 at 14:43 Approved by: Ilir Mcclure M.D. on 11/25/2018 at 14:48 Discharge Plan Departure Patient Disposition: Home Clinical Impression: Dizziness of unknown cause Discharge Date/Time: 11/25/18 15:16 Instructions: DI for Dizziness-Nonvertigo Activity Restrictions/Additional Instructions: *You have been diagnosed with [ chronic dizziness ] *What to do: *Continue to take medications as directed *Follow up with your primary care provider in 2-3 days, call for an appointment. Let them know you were seen in the Emergency Department and that we ask that you be seen in follow up *Return to ER if you should have any new, worsening or concerning symptoms Prescriptions: No Action multivitamin tablet 1 tab PO DAILY RF: 0 Calcium 600 + D(3) 600 mg calcium- 200 unit Capsule 1 cap PO DAILY RF: 0 Premarin 0.625 mg/gram cream 1 applictn Vaginal 2XW Qty: 30 RF: 3 melatonin 5 mg capsule 5 mg PO BEDTIME RF: 0 ascorbic acid (vitamin C) 500 mg tablet,chewable 500 mg PO DAILY RF: 0 cyanocobalamin (vitamin B-12) 1,000 mcg capsule 1,000 mcg PO DAILY RF: 0 aspirin 81 mg tablet,delayed release (DR/EC) 81 mg PO BEDTIME RF: 0 omega 6-qnx-iag-fish oil [Fish Oil] 1,000 mg (120 mg-180 mg) Capsule 1 - 2 cap PO DAILY RF: 0 cholecalciferol (vitamin D3) [Vitamin D3] 1,000 unit Capsule 1,000 unit PO DAILY RF: 0 Pepto-Bismol 1 tab PO QPM RF: 0 Tums 1 tab PO QPM RF: 0 Referrals: Juliana Alberts PA-C [Primary Care Provider] -
[2018-11-25 13:21] VITALS: BP 105/63; PULSE 73; RESP 14; O2SAT 98
--- NOTE | 2018-11-25 13:41 | DI.CT.S_ITS ---
PROCEDURE: CT HEAD/BRAIN WO CON INDICATIONS: dizziness TECHNIQUE: Noncontrast 4.5 mm thick angled axial sections acquired from the foramen magnum to the vertex, with coronal and sagittal reformats. For radiation dose reduction, the following was used: automated exposure control, adjustment of mA and/or kV according to patient size. COMPARISON: None. FINDINGS: Image quality: Excellent. CSF spaces: Basal cisterns are patent. No extra-axial fluid collections. The ventricles are symmetric in size and shape. Brain: No intracranial bleeds or masses. There is cerebral volume loss for age, with resultant ventricular and sulcal prominence. There are periventricular and deep white matter chronic small vessel ischemic changes. There is intracranial internal carotid artery atherosclerosis. Skull and face: Calvarium and visualized facial bones appear intact, without suspicious lesions. Sinuses: Visualized sinuses and mastoids are clear. IMPRESSION: No acute intracranial abnormality. Dictated by: Lamonte Lee M.D. on 11/25/2018 at 14:15 Approved by: Lamonte Lee M.D. on 11/25/2018 at 14:16
--- NOTE | 2018-11-25 13:41 | DI.US.S_ITS ---
PROCEDURE: US PERIPH VENOUS LOW EXTREM LT INDICATIONS: CALF PAIN TECHNIQUE: Real-time imaging, as well as color and pulse Doppler interrogation, were performed of the lower extremity deep veins from the inguinal ligament to the popliteal fossa. COMPARISON: None. FINDINGS: The common femoral, femoral and popliteal veins are normally compressible, and free of intraluminal thrombus. Color and pulse Doppler demonstrate normal phasic intraluminal flow. There is normal augmentation response to distal compression maneuver. IMPRESSION: No DVT found left leg. Dictated by: Ilir Mcclure M.D. on 11/25/2018 at 14:43 Approved by: Ilir Mcclure M.D. on 11/25/2018 at 14:48
[2018-11-25 14:42] VITALS: BP 102/62; PULSE 68; RESP 15; O2SAT 100
[2018-11-25 15:15] VITALS: BP 107/51; PULSE 69; RESP 18; O2SAT 100
== END 2018-11-25 15:16 | disposition home or self-care (01) ==
PROVIDERS: Emergency Provider Emergency Medicine; PCP Physician Assistant
DX: R42 Dizziness and giddiness (principal); M79.662 Pain in left lower leg
CPT/HCPCS: 70450; 80053; 82550; 83735; 84145; 84484; 85025; 85610; 85730; 93005; 93971; 99283; 99285

== ENCOUNTER → 2019-02-11 15:54 | Outpatient (CLI) | payer MEDICARE, MEDICAID, SELFPAY ==
--- NOTE | 2019-02-11 16:00 | DI.ECHO.S_ITS ---
[place]---------+ [facility] +---------+ : : [address] : : : : [id number] : : : : Phone: [phone] Echocardiogram Report + + :Name: ESME ANGEL Study Date: 02/11/2019 Height: 68 in : :[facility] Weight: 200 lb: : Gender: Female BSA: 2.0 m2 : :: 1960 Age: 58 yrs BP: 10/80 mmHg: :Reason For Study: Hypotension : : Performed By: Teresa Champagne : :Referring: GELA UNDERWOOD : + + Interpretation Summary Left ventricular ejection fraction is estimated to be 55%. There is mild tricuspid regurgitation. The right ventricular systolic pressure is estimated to be at least 25 mmHg based on an estimated right atrial pressure of 3 mm Hg. The aortic arch is at the upper limits of normal in size. Procedure: A two-dimensional transthoracic echocardiogram with color flow and Doppler was performed. The study quality was technically adequate. There is no prior echocardiogram noted for this patient. The patient was in normal sinus rhythm during the exam. Left Ventricle: The left ventricle is normal in size, wall thickness, and systolic function without any focal wall motion abnormalities. Left ventricular ejection fraction is estimated to be 55%. There are no obvious focal wall motion abnormalities noted but poor endocardial definition reduces the sensitivity for the detection of such. Diastolic parameters suggest a relaxation abnormality of the left ventricle, consistent with probable normal filling pressures. Right Ventricle: The right ventricle grossly appears normal in size with probable normal systolic function. Atria: The left atrium is mildly dilated. Right atrial size is normal. The interatrial septum is intact with no evidence for an atrial septal defect. Mitral Valve: The mitral valve is normal in structure and function. There is no mitral regurgitation noted. Aortic Valve: The aortic valve is trileaflet. The aortic valve opens well. No aortic regurgitation is present. Tricuspid Valve: The tricuspid valve is normal in structure and function. There is mild tricuspid regurgitation. The right ventricular systolic pressure is estimated to be at least 25 mmHg based on an estimated right atrial pressure of 3 mm Hg. Pulmonic Valve: The pulmonic valve is normal in structure and function. There is no pulmonic valvular regurgitation. Great Vessels: The aortic root is normal size. The dimensions of the ascending aorta are normal. The aortic arch is at the upper limits of normal in size. Inspiratory collapse cannot be assessed because of mechanical ventilation, thus CVP cannot be estimated.. Pericardium/ Pleura There is no pericardial effusion. There is no pleural effusion. MMode/2D Measurements & Calculations LVIDd: 5.2 cm Ao root diam: 3.2 cm LVIDs: 3.2 cm Aortic Jxn: 2.7 cm FS: 37.9 % asc Aorta Diam: 3.3 cm EPSS: 0.62 cm Ao Arch Diam (Prox Trans): 3.3 cm IVSd: 0.78 cm LVPWd: 0.98 cm LV montero. diameter/BSA (cm/m^2): 2.6 LV sys. diameter/BSA (cm/m^2): 1.6 LA dimension: 4.4 cm RA long axis: 4.4 cm LA A2 area: 21.9 cm2 RA area: 15.9 cm2 LA A4 area: 23.1 cm2 RA vol: 48.6 ml LA length (vol): 5.5 cm RA : 23.8 ml/m2 LA vol: 78.2 ml IVC diam: 2.0 cm LA vol index: 38.3 ml/m2 Doppler Measurements & Calculations Ao V2 max: 206.4 cm/sec MV E max aung: 77.7 cm/sec Ao V2 mean: 126.3 cm/sec MV A max aung: 89.6 cm/sec Ao max P.0 mmHg MV E/A: 0.87 Ao mean P.9 mmHg Med Peak E' Aung: 8.4 cm/sec Ao V2 VTI: 43.4 cm E/E' med: 9.2 Lat Peak E' Aung: 11.6 cm/sec E/E' lat: 6.7 E/e' average: 8.0 MV dec time: 0.24 sec MV P1/2t: 72.1 msec TR max aung: 232.9 cm/sec MV P1/2t max aung: 77.3 cm/sec TR max P.7 mmHg MVA(P1/2t): 3.1 cm2 PA V2 max: 90.9 cm/sec PA V2 mean: 54.6 cm/sec PA mean P.5 mmHg PA Accel Time: 0.12 sec Reading Physician:09:34
== END ==
PROVIDERS: PCP Physician Assistant; Visit Provider Physician Assistant
DX: I07.1 Rheumatic tricuspid insufficiency (principal); R53.83 Other fatigue; I95.9 Hypotension, unspecified; Z98.890 Other specified postprocedural states
CPT/HCPCS: 93306

== ENCOUNTER → 2019-02-15 12:20 | Outpatient (CLI) | payer MEDICARE, MEDICAID, SELFPAY ==
[2019-02-15 13:02] LABS: Hematocrit 45.3 % (36-46)
[2019-02-15 13:48] LABS: HEMOLYSIS < 15 (0-50); Iron 69 ug/dL (37-170)
[2019-02-15 14:00] LABS: Percent Iron Saturation 19 % (15-50); Total Iron Binding Capacity 360 ug/dL (265-497); Transferrin 310 mg/dL (206-381)
[2019-02-15 14:39] LABS: Vitamin B12 829 pg/mL (239-931)
== END ==
PROVIDERS: PCP Physician Assistant; Visit Provider Physician Assistant
DX: E53.8 Deficiency of other specified B group vitamins (principal); R42 Dizziness and giddiness; R53.83 Other fatigue
CPT/HCPCS: 36415; 82607; 83540; 83550; 85014; 85018

== ENCOUNTER → 2019-03-07 07:10 | Outpatient (CLI) | payer MEDICARE, MEDICAID, SELFPAY ==
[2019-03-07 08:59] LABS: Cortisol AM (Before 10AM) 12.8 ug/dL (4.46-22.7)
== END ==
PROVIDERS: PCP Physician Assistant; Visit Provider Hospitalist
DX: I95.0 Idiopathic hypotension (principal)
CPT/HCPCS: 36415; 82533

== ENCOUNTER → 2019-03-09 12:41 | Outpatient (CLI) | payer MEDICARE, MEDICAID, SELFPAY | PROVIDERS: PCP Physician Assistant; Visit Provider Physician Assistant | DX: E78.5 Hyperlipidemia, unspecified (principal) ==

== ENCOUNTER → 2019-03-17 11:04 | Outpatient (CLI) | payer MEDICARE, MEDICAID, SELFPAY ==
--- NOTE | 2019-03-17 11:09 | DI.US.S_ITS ---
PROCEDURE: US THYROID INDICATIONS: NODULE L THYROID - SEEN ON 11/04 CT C/A/P TECHNIQUE: Real-time scanning was performed of the thyroid gland, with image documentation. COMPARISON: [facility], CT, CT CHEST ABD PEL W CON, 10/22/2018, 11:05. FINDINGS: Right: Thyroid lobe measures 4.6 x 1.8 x 1.7 cm, and is homogeneous in echotexture. Left: Thyroid lobe measures 4.6 x 1.6 x 1.8 cm, and is homogenous in echotexture. Isthmus: 3 mm thick. Multiple small bilateral colloid cysts identified measuring up to 6 mm in size. Nodule number: 1 Location: Inferior left thyroid lobe Size: 2.3 x 1.7 x 1.6 cm. Composition: Solid Echogenicity: Markedly hypoechoic Shape: wider than tall. Margins: Smooth Echogenic foci: None Total points: 5 ACR TI-RADS category: TI-RADS 4 (moderately suspicious) Nodule number: 2 Location: Left mid inferior thyroid lobe Size: 1.7 x 1.5 x 1.2 cm. Composition: Solid Echogenicity: Markedly hypoechoic Shape: wider than tall. Margins: Smooth Echogenic foci: Punctate Total points: 8 ACR TI-RADS category: TI-RADS 5 (highly suspicious) Nodule number: 3 Location: Superior right thyroid lobe Size: 0.8 x 0.6 x 0.4 cm. Composition: Solid Echogenicity: Hypoechoic Shape: wider than tall. Margins: Smooth Echogenic foci: None. Total points: 4 ACR TI-RADS category: TI-RADS 4 (moderately suspicious) Nodule number: 4 Location: Right mid thyroid lobe. Size: 0.8 x 0.9 x 0.6 cm. Composition: Solid Echogenicity: Markedly hypoechoic Shape: wider than tall. Margins: Smooth Echogenic foci: None. Total points: 5 ACR TI-RADS category: TI-RADS 5 (highly suspicious) IMPRESSION: Bilateral thyroid nodules characterized asTI-RADS 4 andTI-RADS 5 nodules. The 2 nodules within the left thyroid lobe meet consensus criteria for fine needle aspiration. The right sided nodules should be followed per recommendations below. ACR TI-RADS definitions and recommendations: TI-RADS 1 (benign): 0 points. FNA not needed. TI-RADS 2 (not suspicious): 2 points. FNA not needed. TI-RADS 3 (mildly suspicious): 3 points. * FNA if 2.5 cm or larger, follow up if 1.5 cm or larger (at 1, 3, and 5 years). TI-RADS 4 (moderately suspicious): 4-6 points. * FNA if 1.5 cm or larger, follow up if 1 cm or larger (at 1, 2, 3, and 5 years). TI-RADS 5 (highly suspicious): 7 points or more. * FNA if 1 cm or larger, follow up if 0.5 cm or larger (every year for 5 years). Dictated by: Clayton Gomez M.D. on 03/17/2019 at 23:10 Approved by: Clayton Gomez M.D. on 03/17/2019 at 23:22
[2019-03-17 12:56] LABS: BUN Creatinine Ratio 28.3 (6-22); Blood Urea Nitrogen 17 mg/dL (7-17); Calcium 10.6 mg/dL (8.4-10.2); Carbon Dioxide 30 mmol/L (22-32); Chloride 99 mmol/L (98-107); Estimated Glomerular Filt Rate > 60.0 mL/min (>60); Glucose 93 mg/dL (80-110); HEMOLYSIS < 15 (0-50); Potassium 4.5 mmol/L (3.4-5.1); Sodium 137 mmol/L (137-145)
[2019-03-17 13:41] LABS: Free T3, Triiodothyronine Free 3.76 pg/mL (2.77-5.27)
[2019-03-17 13:55] LABS: Thyroid Stimulating Hormone 0.85 uIU/mL (0.47-4.68)
== END ==
PROVIDERS: PCP Physician Assistant; Visit Provider Physician Assistant
DX: E04.2 Nontoxic multinodular goiter (principal); R26.89 Other abnormalities of gait and mobility; R42 Dizziness and giddiness; I95.9 Hypotension, unspecified
CPT/HCPCS: 36415; 76536; 80048; 84439; 84443; 84481

== ENCOUNTER → 2019-03-30 09:08 | Outpatient (CLI) | payer MEDICARE, MEDICAID, SELFPAY ==
--- NOTE | 2019-03-30 | PATH_ITS ---
Note [facility] Accession Number: [id number] TESTS RESULT FLAG UNITS REF RANGE LAB Clinician Provided Cytology Information No. of containers..01 Other (Miscellaneous) No. of containers..06 Previously Prepared Cytology Slide MID L THYROID NODULE DIAGNOSIS: MID L THYROID NODULE NEGATIVE FOR MALIGNANT CELLS. [place] CATEGORY II. SPECIMEN CONSISTS OF BENIGN FOLLICULAR CELLS, HEMOSIDERIN-LADEN MACROPHAGES, COLLOID, AND BLOOD. THIS PATTERN IS CONSISTENT WITH A COLLOID NODULE. Pathologist ICD10: 02 E04.1 01 Surgical History: History of tonsillectomy Hx of cholecystemtomy ( Resolved Unknown) Hx of knee surgery (Resolved Unknown) Smokeing status: Former smoker Tobacco used: 13 years second hand exposure: No alcohol intake: current Sanjuana Lorenzo MD, Pathologist NPI- [id number] Vita Tavarez, Tree Sapper ([facility]) 01 30 CC, PINK, CLEAR Also received 8 alcohol fixed, 8 quick stained slides, and 1 RNA vial. /[facility] 03/31/2019 0903 Local FLAG LEGEND: L-Low Normal,H-High Normal,LL-Alert Low,HH-Alert High <-Panic Low,>-Panic High,A-Abnormal,AA-Critical Abnormal Performed at: 01 =Z [facility] [address] [place] [address], [place] [address] Heron Rios MD, 02 [facility] [address] [place] [id number] Yuliana Contreras MD, Performed at: 01 [place] [address], [place], [place] [id number] MD Heron Rios MD Phone: [phone]
--- NOTE | 2019-03-30 | PATH_ITS ---
Note [facility] Accession Number: [id number] TESTS RESULT FLAG UNITS REF RANGE LAB Clinician Provided Cytology Information No. of containers..01 Other (Miscellaneous) No. of containers..02 Previously Prepared Cytology Slide MID R THYROID NODULE DIAGNOSIS: MID R THYROID NODULE NEGATIVE FOR MALIGNANT CELLS. BETHESDA CATEGORY II. SPECIMEN CONSISTS OF BENIGN FOLLICULAR CELLS, HEMOSIDERIN-LADEN MACROPHAGES, COLLOID, AND BLOOD. THIS PATTERN IS CONSISTENT WITH A COLLOID NODULE. Pathologist ICD10: 02 E04.1 01 Surgical History: History of tonsillectomy Hx of cholecystemtomy ( Resolved Unknown) Hx of knee surgery (Resolved Unknown) Smokeing status: Former smoker Tobacco used: 13 years second hand exposure: No alcohol intake: current Sanjuana Lorenzo MD, Pathologist NPI- [id number] Vita Tavarez, [employer] ([facility]) 01 30 CC, PINK, CLEAR Also received 6 alcohol fixed, 6 quick stained slides, and 1 RNA vial. /[facility] 03/31/2019 0902 Local FLAG LEGEND: L-Low Normal,H-High Normal,LL-Alert Low,HH-Alert High <-Panic Low,>-Panic High,A-Abnormal,AA-Critical Abnormal Performed at: 01 =Z [facility] [address] [place] [address], [place] [address] Heron Rios MD, 02 [facility] [address] [place] [phone] Yuliana Contreras MD, Performed at: 01 [place] [address], [place], [place] [id number] MD Heron Rios MD Phone: [phone]
--- NOTE | 2019-03-30 09:10 | DI.US.S_ITS ---
PROCEDURE: US FINE NEEDLE ASPIRATION INDICATIONS: BILATERAL THYROID NODULES TECHNIQUE: The indications, alternatives, benefits, risks, and complications of the procedure were explained to the patient. Written informed consent was obtained and placed in the chart. The thyroid region was examined sonographically and a site was chosen for ultrasound guided percutaneous sampling. The skin was prepared and draped in the usual fashion, and anesthetized with 1% lidocaine infiltrated from the skin down to the thyroid gland. Multiple passes were then performed, with contents emptied into an appropriate pathology specimen container. A bandage was applied to the area of access at completion of the study. COMPARISON: None. FINDINGS: Location(s) of lesion(s) sampled: Interpolar left and right lobes [place]: 25 and 22 gauge hypodermic needles. Number of passes: 8 passes for the left, 6 passes from the right. Medications: 1% lidocaine for local anaesthesia. Complications: None. IMPRESSION: Successful ultrasound-guided thyroid nodule fine needle aspiration, with cytology results pending. Please see chart below for management recommendations based on cytology results. [facility] ReportingRecommendationsNon-diagnostic* Repeat US-guided FNA, with on-site cytology evaluation if possible. * Repeated non-diagnostic nodules without high suspicion US features: close observation vs surgical consult. * Consider surgery if nodule has high suspicion US features, grows >20% in 2 dimensions on followup, or patient has clinical risk factors for malignancy. Benign* If nodule has high suspicion US features: repeat US and FNA within 12 months. * If nodule has low to intermediate suspicion US features: repeat US at 12-24 months. If nodule grows (20% increase in at least 2 dimensions, with minimal increase of 2 mm or >50% change in volume), or development of new suspicious US features, then repeat FNA or continue followup. * If nodule has very low suspicion US features: followup US at >24 months. Atypia of undetermined significance, follicular lesion of undetermined significanceRepeat FNA, molecular testing, followup US, or surgical consult.Follicular neoplasm, suspicious for follicular neoplasmSurgical consult; also consider molecular testing. Suspicious for malignancySurgical consult.MalignantSurgical consult. Dictated by: Tomi Moody M.D. on 03/30/2019 at 12:36 Approved by: Tomi Moody M.D. on 03/30/2019 at 12:37
== END ==
PROVIDERS: PCP Physician Assistant; Referring Provider Nurse Practitioner; Visit Provider Nurse Practitioner
DX: E04.2 Nontoxic multinodular goiter (principal)
CPT/HCPCS: 10005; 10006

== ENCOUNTER 2019-04-02 09:48 | Emergency (ER) | payer MEDICARE, MEDICAID, SELFPAY ==
[2019-04-02 10:20] VITALS: BP 120/57; PULSE 66; RESP 20; TEMP 36.7; O2SAT 98; BMI 32.6
--- NOTE | 2019-04-02 10:28 | DI.RAD.S_ITS ---
PROCEDURE: XR WRIST RT MIN 3V INDICATIONS: right wrist pain TECHNIQUE: 3 views of the wrist were acquired. COMPARISON: [facility], , WRIST MINIMUM 3 VIEWS LEFT, 04/25/2011, 9:02. FINDINGS: Bones: No acute fractures or dislocations. No suspicious bony lesions. Degenerative changes are seen, which are most prominent involving the radial aspect of the carpus, and worst involving the 1st carpometacarpal joint. At this site, there is prominent joint space narrowing with associated subchondral sclerosis and irregularity. Fragmented osteophytes can be seen. Note is made of negative ulnar variance. This can predispose to development of AVN of the lunate. However, no findings of AVN of the lunate are seen on these plain films. Soft tissues: No suspicious soft tissue calcifications. IMPRESSION: Prominent focal 1st carpometacarpal joint degenerative change. If it would be helpful for clinical management decision making, please consider a dedicated wrist MRI for further evaluation (assuming that there is no contraindication). If there is strong clinical concern for a ligamentous abnormality, this should be performed according to the MR arthrogram protocol. Dictated by: Spenser Jara M.D. on 04/02/2019 at 10:01 Approved by: Spenser Jara M.D. on 04/02/2019 at 10:03
--- NOTE | 2019-04-02 11:33 | ED.UPPEXIN ---
HPI - Extremity Injury (Upper) <SERA Berrios - Last Filed: 04/02/19 13:57> General Chief Complaint: Extremity Injury, Upper Stated Complaint: Rt wrist pain Time Seen by Provider: 04/02/19 11:23 Source: patient Mode of arrival: Ambulatory Limitations: no limitations History of Present Illness HPI narrative: This is a 4-year-old female, former smoker, who presents to ED with chief complain of crossing from radial to ulnar aspect of right wrist pain and swelling. Patient reports she has history of rheumatoid arthritis but currently cannot take her medications for this since recent heart surgery. Patient states pain started on her right wrist when she carried her 15 lb cat and she felt popping sensation and nose from right wrist. Right dominant hand. She has been using ice pack for 15 minutes is about 6 times yesterday which helped with the swelling and had taken Tylenol and 1 [place] last night which allowed patient to sleep. Patient reports she had decreased sensation from her thumb through middle finger yesterday which resolved today. Patient reports pain increases when she has ulna and radial deviation motion. Patient reports at rest pain is about 2 to 3/10. Related Data Home Medications Medication Instructions Recorded Confirmed calcium carbonate-vitamin D3 600 1 cap PO DAILY 03/02/18 03/23/19 mg calcium-200 unit capsule melatonin 5 mg capsule 5 mg PO BEDTIME cap 06/23/18 03/23/19 aspirin 81 mg tablet,delayed 81 mg PO BEDTIME 07/09/18 03/23/19 release ascorbic acid (vitamin C) 500 mg 500 mg PO DAILY 08/24/18 03/23/19 chewable tablet cyanocobalamin (vitamin B-12) 1,000 mcg PO DAILY 08/24/18 03/23/19 1,000 mcg capsule omega 8-qth-tmb-fish oil [Fish Oil] 1 - 2 cap PO DAILY 10/27/18 03/23/19 Vitamin D3 400 IU See Rx Instructions .ROUTE .COMPLEX 12/22/18 03/23/19 calcium carbonate 400 mg calcium 400 mg PO DAILY PRN 12/22/18 03/23/19 (1,000 mg) chewable tablet multivitamin 1 tab PO .3 TIMES A WEEK tab 12/22/18 03/23/19 inulin 2.5 gram chewable tablet gram PO 02/28/19 03/23/19 aluminum-magnesium hydroxide 500 ml PO 03/18/19 03/23/19 mg-500 mg/5 mL oral suspension Previous Rx's Medication Instructions Recorded Disabled Parking Placard #1 ea 11/30/18 estradiol See Rx Instructions VAG 2XW #42.5 01/26/19 gram midodrine 2.5 mg tablet 5 mg PO BID #120 tab 01/31/19 hydrocodone 5 mg-acetaminophen 325 0.5 tab PO BID PRN #30 tab 02/28/19 mg tablet dexlansoprazole 30 mg 30 mg PO DAILY #30 cap 03/28/19 capsule,biphase delayed release prednisone 20 mg PO DAILY 5 Days #5 tab 04/02/19 Allergies Allergy/AdvReac Type Severity Reaction Status Date / Time Sulfa (Sulfonamide Allergy Severe Possible Verified 03/23/19 09:49 Antibiotics) due to [SULFA (SULFONAMIDE Celebrex ANTIBIOTICS)] allergy fenofibrate [FENOFIBRATE] Allergy Intermediate Rash Verified 03/23/19 09:49 red yeast rice Allergy Mild Rash Verified 03/23/19 09:49 [RED YEAST RICE] external genital area adhesive AdvReac Severe REDNESS, Verified 03/23/19 09:49 ITCHING AND BLISTERS FROM ADHESIVE TAPE NSAIDS (Non-Steroidal AdvReac Severe Epigastric Verified 03/23/19 09:49 Anti-Inflamma pain - suspect ulcers montelukast AdvReac Intermediate SORES IN Verified 03/23/19 09:49 MY MOUTH AND NOSTRIL latex AdvReac Mild ITCHING Verified 03/23/19 09:49 CAT DANDER Allergy Intermediate ITCHY Uncoded 03/23/19 09:49 WATER EYES, CONGESTION, RUNNY NOSE Tree pollen Allergy Intermediate Birch/Anahi Uncoded 03/23/19 09:49 trees - Runny/Itchy nose/Eye irritation. Review of Systems <SERA Berrios - Last Filed: 04/02/19 13:57> Review of Systems Narrative: General: Denies fever, chills, fatigue, malaise, sweats. HEENT: Denies sinus pain, ear pain, sore throat, difficulty swallowing, dizziness. Respiratory: Denies dyspnea, cough, wheezing, hemoptysis, sputum. Cardiovascular: Denies chest pain, palpitations, orthopnea, edema. Gastrointestinal: Denies nausea, vomiting, abdominal pain, diarrhea, constipation, melena. : Denies dysuria, frequency, incontinence, hematuria, urinary retention. Musculoskeletal: See HPI Skin: Denies rash, skin lesions, or other. Neurologic: Denies weakness, headache, numbness, change in speech, confusion, seizures, incoordination. Psychiatric: No concerning psychosocial issues. 12-point review of systems is negative except for those stated above. Patient History <SERA Berrios - Last Filed: 04/02/19 13:57> Medical History Allergic rhinitis due to cat hair (Resolved) Bursitis (Resolved Unknown) Cholecystitis (Resolved Unknown) Elevated uric acid in blood (Resolved) Esophageal dysmotility (Resolved 08/28/15) GERD (gastroesophageal reflux disease) (Chronic Unknown) History of migraine (Resolved ~2001) Hypercalcemia (Acute) Hyperlipidemia (Chronic 04/26/14) Obesity (Chronic) Osteoarthritis, generalized (Chronic) Plantar fasciitis (Resolved Unknown) Smallpox (Resolved) Speech disturbance (Chronic Unknown) Surgical History History of tonsillectomy Hx of cholecystectomy (Resolved Unknown) Hx of knee surgery (Resolved Unknown) Hx of total hysterectomy (Resolved Unknown) Social History Smoking Status: Former smoker Tobacco: How many years used: 13 second hand exposure: No alcohol intake: current substance use type: does not use Smoking Status: Former smoker alcohol intake frequency: 0-2 drinks per day Substance Use Type: does not use Exam <SERA Berrios - Last Filed: 04/02/19 13:57> Narrative Exam Narrative: General appearance: well developed, well nourished, in no acute distress. Head: normocephalic, atraumatic, no scalp lesions, non-tender. ENT: Hearing grossly intact. Nose without bleeding, purulent discharge or deviation. Mucous membrane moist, no mucosal lesion. Throat without erythema, tonsillar hypertrophy or exudate. Uvula in midline, airway patent. Neck/Thyroid: neck supple, full range of motion, no visible masses or meningeal signs. No JVD, non-tender without lymphadenopathy. Skin: no suspicious rashes, lesions over visible areas. Warm and dry and appropriate color for ethnicity. Heart: no clubbing, no cyanosis, no edema. S1 and S2 normal. RRR w/o murmurs, clicks, or bruits. Lungs: Breathing even and unlabored. No stridor. No accessory muscles used. Able to speak in full sentences. Chest: normal shape and expansion. Abdomen: non-obese, non-distended. Neurologic: alert and oriented. Cognitive exam, HERBOLOGIST and PNS grossly intact on informal exam. Psych: good eye contact, normal affect. Initial Vital Signs Initial Vital Signs: Vital Signs Temperature 98.1 F 04/02/19 10:20 Pulse Rate 66 04/02/19 10:20 Respiratory Rate 04/02/19 10:20 Blood Pressure 120/57 L 04/02/19 10:20 Pulse Oximetry 98 04/02/19 10:20 Extrem Right upper extremity: wrist Details: abnormal to inspection, tenderness Location: of the distal radius and of the distal ulna, swelling (around the wrist) Location: of the dorsal wrist and of the volar wrist, abnormal ROM (pain with ulnar and radial deviation) Details: pain with active ROM during and pain with passive ROM during, normal vascular exam and radial pulse present; no unusual warmth, no abrasions, no lacerations, no ecchymosis and no deformity and hand Details: neuromotor exam normal (except thumb opposition with 4th and 5th finger due to discomfort), neurosensory exam normal, tendon exam normal Location: of all digits, vascular exam Details: radial pulse present and normal capillary refill, normal ROM of fingers and no swelling; no tenderness and no unusual warmth <Wilver Bradshaw MD - Last Filed: 04/03/19 23:20> Initial Vital Signs Initial Vital Signs: Vital Signs Temperature 98.1 F 04/02/19 10:20 Pulse Rate 66 04/02/19 10:20 Respiratory Rate 20 04/02/19 10:20 Blood Pressure 120/57 L 04/02/19 10:20 Pulse Oximetry 98 04/02/19 10:20 Procedures <SERA Berrios - Last Filed: 04/02/19 13:57> Orthopedic Splinting/Casting Injury #1: Side: right Upper Extremity Injury Location: wrist Upper Extremity Immobilizer: thumb spica Post splinting neuro exam: intact Post splinting vascular exam: intact Placed by: Nursing Scores <Garrison MoSERA Goss - Last Filed: 04/02/19 13:57> GCS Tanvi coma scale eye opening: Spontaneous Tanvi coma scale verbal response: Orientated Tanvi coma scale motor response: Obey commands [place] coma scale total score: 15 Course <Garrison SernaSERA Goss - Last Filed: 04/02/19 13:57> Orders Ordered: ED Orders 04/02/19 10:28 XR wrist RT min 3V Stat Vital Signs Vital signs: Vital Signs - 8 hr 04/02/19 10:20 Temperature 98.1 F Pulse Rate 66 Respiratory Rate 20 Blood Pressure 120/57 L Pulse Oximetry 98 <Wilver Bradshaw MD - Last Filed: 04/03/19 23:20> Orders Ordered: ED Orders 04/02/19 10:28 XR wrist RT min 3V Stat Vital Signs Vital signs: Vital Signs - 8 hr 04/02/19 10:20 Temperature 98.1 F Pulse Rate 66 Respiratory Rate 20 Blood Pressure 120/57 L Pulse Oximetry 98 MDM - Extremity Injury (Upper) <Garrison MoSERA Goss - Last Filed: 04/02/19 13:57> Differential Diagnosis Differential diagnosis: Likely sprain and strain of wrist and fracture of wrist Medical Records Attestation: I reviewed the patient's medical records. Imaging Data XR-Wrist RT: Radiologist's Impression: For [address] [address] XRay Report Signed Patient: Rosalia Montes [facility]#: [id number] : 9Acct:[id number] Age/Sex: 58 / FDate of Service: 04/02/19 Loc: ED Accession Number: [id number] Procedure: XR wrist RT min 3V Ordering Provider: Wilver Bradshaw MD PROCEDURE: XR WRIST RT MIN 3V INDICATIONS: right wrist pain TECHNIQUE: 3 views of the wrist were acquired. COMPARISON: [facility], , WRIST MINIMUM 3 VIEWS LEFT, 04/25/2011, 9:02. FINDINGS: Bones: No acute fractures or dislocations. No suspicious bony lesions. Degenerative changes are seen, which are most prominent involving the radial aspect of the carpus, and worst involving the 1st carpometacarpal joint. At this site, there is prominent joint space narrowing with associated subchondral sclerosis and irregularity. Fragmented osteophytes can be seen. Note is made of negative ulnar variance. This can predispose to development of AVN of the lunate. However, no findings of AVN of the lunate are seen on these plain films. Soft tissues: No suspicious soft tissue calcifications. IMPRESSION: Prominent focal 1st carpometacarpal joint degenerative change. If it would be helpful for clinical management decision making, please consider a dedicated wrist MRI for further evaluation (assuming that there is no contraindication). If there is strong clinical concern for a ligamentous abnormality, this should be performed according to the MR arthrogram protocol. Dictated by: Spenser Jara M.D. on 04/02/2019 at 10:01 Approved by: Spenser Jara M.D. on 04/02/2019 at 10:03 MDM Narrative Medical decision making narrative: No fracture or acute findings today per x-ray test. Sensations intact with intact radial pulse. There was generalized mild swelling to her right wrist and patient reports increased tenderness with movements on her fingers with thumb opposition with 3rd and 4th fingers. Affected hand was applied on prefabricated thumb spica splint and patient advised to use ice pack next 24-48 hours. Patient discharged home with low dose of steroids in a short burst course and also advised to take mirb-soe-loosacb Tylenol as needed. Patient advised to follow-up with PCP and have reimaging test done pain persists. Return precautions were discussed with the patient and verbalized the understanding and in agreement with treatment plan. Discharge Plan Departure Patient Disposition: Home Clinical Impression: Pain and swelling of right wrist Discharge Date/Time: 04/02/19 12:00 Instructions: DI for Wrist Sprain Activity Restrictions/Additional Instructions: You have been diagnosed with [right wrist pain and swelling. Acute findings such as fractures or dislocation. However, it is indicated degenerative changes and osteophytes per x-ray test.]. What to do: *Take your medications as directed. Please take prednisone once a day for next 5 days and you can continue to use eatc-tza-grlgmyi Tylenol 650 mg 4 times a day as needed. Prednisone has been transmitted to [facility] in [facility]. Please use ice next couple of days and use wrist splint that has been provided to you for support and pain. *Follow up with your primary care provider in 2-3 days, call for an appointment. Let them know you were seen in the ED and that we asked you to be seen in follow up. If your pain persists you may need to repeat imaging test or further evaluation. *Return to ED if you have any new, worsening, or concerning symptoms, such as [fever, increasing pain, increasing numbness/swelling/weakness to affected hand, chest pain, breathing difficulty, unable to tolerate fluids or any acute concerns]. Prescriptions: New prednisone 20 mg tablet 20 mg PO DAILY 5 Days Qty: 5 RF: 0 No Action Calcium 600 + D(3) 600 mg calcium- 200 unit Capsule 1 cap PO DAILY RF: 0 midodrine 2.5 mg tablet 5 mg PO BID Qty: 120 RF: 1 Dexilant 30 mg capsule,biphase delayed releas 30 mg PO DAILY Qty: 30 RF: 3 melatonin 5 mg capsule 5 mg PO BEDTIME RF: 0 Vitamin D3 400 IU See Rx Instructions .ROUTE .COMPLEX RF: 0 multivitamin Tablet 1 tab PO .3 TIMES A WEEK RF: 0 calcium carbonate [Tums Ultra] 400 mg calcium (1,000 mg) tablet,chewable 400 mg PO DAILY PRNRF: 0 aluminum-magnesium hydroxide 500-500 mg/5 mL suspension PO RF: 0 ascorbic acid (vitamin C) 500 mg tablet,chewable 500 mg PO DAILY RF: 0 cyanocobalamin (vitamin B-12) 1,000 mcg capsule 1,000 mcg PO DAILY RF: 0 (DME) Disabled Parking Placard Qty: 1 RF: 0 estradiol 0.01 % (0.1 mg/gram) cream See Rx Instructions VAG 2XW Qty: 42.5 RF: 6 inulin 2.5 gram tablet,chewable PO RF: 0 hydrocodone-acetaminophen 5-325 mg tablet 0.5 tab PO BID PRN (Reason: pain) Qty: 30 RF: 0 aspirin 81 mg tablet,delayed release (DR/EC) 81 mg PO BEDTIME RF: 0 omega 4-acu-tha-fish oil [Fish Oil] 1,000 mg (120 mg-180 mg) Capsule 1 - 2 cap PO DAILY RF: 0 Referrals: Sindy Lim ARNP [[facility]] -
== END 2019-04-02 12:00 | disposition home or self-care (01) ==
PROVIDERS: Emergency Provider Nurse Practitioner Family; PCP Physician Assistant
DX: M25.531 Pain in right wrist (principal)
CPT/HCPCS: 73110; 99283

== ENCOUNTER 2019-04-07 14:00 | Outpatient (RCR) | payer MEDICARE, MEDICAID, SELFPAY | END 2019-04-08 15:22 | LOC: CAR 14:00 | PROVIDERS: PCP Physician Assistant; Visit Provider Physician Assistant | DX: Z98.890 Other specified postprocedural states (principal) | CPT/HCPCS: 93798 ==

== ENCOUNTER → 2019-04-29 11:43 | Outpatient (CLI) | payer MEDICARE, MEDICAID, SELFPAY ==
--- NOTE | 2019-04-29 11:43 | DI.RAD.S_ITS ---
PROCEDURE: XR WRIST LT MIN 3V INDICATIONS: left wrist pain TECHNIQUE: 4 views of the wrist were acquired. COMPARISON: [facility], CR, XR WRIST RT MIN 3V, 04/02/2019, 10:28. [facility], CR, WRIST MINIMUM 3 VIEWS LEFT, 04/25/2011, 9:02. FINDINGS: Bones: No acute fractures or dislocations but there is distortion of the scaphoid bone with portions of the osseous margins are extending beyond the expected periphery of the scaphoid, possibly reflecting old trauma or heterotopic ossification after prior trauma. No suspicious bony lesions. Scaphoid view: The scaphoid appears somewhat foreshortened and also associated with osseous protuberance from the scaphoid margin laterally, to the degree that old trauma is suspected as the underlying cause Soft tissues: No suspicious soft tissue calcifications. IMPRESSION: Moderate generalized degenerative osteoarthritic change, distortion of the lateral border of the scaphoid appears chronic and likely due to old trauma. No acute trauma found. Dictated by: Ilir Mcclure M.D. on 04/29/2019 at 14:35 Approved by: Ilir Mcclure M.D. on 04/29/2019 at 14:37
== END ==
PROVIDERS: PCP Physician Assistant; Referring Provider Registered Nurse; Visit Provider Registered Nurse
DX: M25.532 Pain in left wrist (principal)
CPT/HCPCS: 73110

== ENCOUNTER → 2019-05-02 14:06 | Outpatient (CLI) | payer MEDICARE, MEDICAID, SELFPAY ==
--- NOTE | 2019-05-02 | DI.CT.S_ITS ---
PROCEDURE: CT ANGIO CHEST INDICATIONS: Dizziness and giddiness TECHNIQUE: After the administration of intravenous contrast, 2.5 mm thick sections acquired from the lung apices to the posterior lung bases. Maximum intensity projection (MIP) oblique sagittal reformats were then acquired parallel to the aortic arch. For radiation dose reduction, the following was used: automated exposure control. COMPARISON: [facility], CT, CT CHEST ABD PEL W CON, 10/22/2018, 11:05. FINDINGS: Image quality: Excellent. Aorta: Aorta and great vessels are normal in size. No mural irregularity or contrast extravasation to suggest aortic injury. Mediastinum: No hematomas. Heart size is normal. Suboptimal evaluation of the right atrium secondary to unopacified blood entering it. No definite recurrent right atrial mass. No pericardial effusion. No mediastinal or hilar adenopathy by size criteria. Central pulmonary arteries are normal in size. Esophagus is normal in caliber. No hiatal hernia. Lungs and pleura: No acute airspace opacities. No change in the right posterior lung base nodule measuring 4 mm. Subpleural nodule within the left upper lobe posteriorly adjacent to the major fissure measuring 4 mm is unchanged. There are 2 small adjacent subpleural nodules within the right middle lobe superiorly adjacent to the minor fissure measuring roughly 3 mm each. No pleural effusions or pneumothorax. Central and peripheral airways are patent and normal in caliber. Bones and chest wall: No axillary adenopathy by size criteria. Median sternotomy. Thyroid gland demonstrates a day 6 mm diameter nodule within the left lobe. No suspicious bony lesions. No vertebral body compression fractures. Abdomen: Visualized portions of the upper abdomen demonstrate a nodular hepatic contour, as well as bilateral adrenal thickening. Left upper quadrant spine are present, as before. IMPRESSION: 1. Postsurgical sequelae. Suboptimal evaluation of the right atrium secondary to unopacified blood. This can be further assessed with echocardiography, if clinically indicated. 2. No change in right lung nodules. 3. Findings suggestive of cirrhosis. 4. Left thyroid nodule. Dictated by: Lamonte Lee M.D. on 05/02/2019 at 15:49 Approved by: Lamonte Lee M.D. on 05/02/2019 at 15:58
== END ==
PROVIDERS: PCP Physician Assistant; Referring Provider Nurse Practitioner; Visit Provider Nurse Practitioner
DX: R42 Dizziness and giddiness (principal); R91.8 Other nonspecific abnormal finding of lung field; E04.1 Nontoxic single thyroid nodule; Z98.890 Other specified postprocedural states
CPT/HCPCS: 71275; Q9967

== ENCOUNTER → 2019-05-24 14:16 | Outpatient (CLI) | payer MEDICARE, MEDICAID, SELFPAY ==
[2019-05-24 15:40] LABS: Add Manual Diff / Slide Review NO; Basophils Absolute Auto 0 /uL (0-100); Basophils Percent Auto 0.1 % (0-2); Eosinophils Absolute Auto 0 /uL (0-450); Hematocrit 42.9 % (36-46); Hemoglobin 14.1 g/dL (12.0-16.0); Lymphocytes Absolute Auto 1300 /uL (1100-4500); Lymphocytes Percent Auto 21.9 % (25-40); Mean Corpuscular HGB Conc 32.9 % (30-36); Mean Corpuscular Hemoglobin 28.2 PG (26-34); Mean Corpuscular Volume 85.8 fL (80-100); Monocytes Absolute Auto 500 /uL (0-900); Monocytes Percent Auto 7.8 % (3-14); Neutrophils Absolute Auto 4300 /uL (1500-7000); Neutrophils Percent Auto 70.2 % (50-75); Platelet Count 303 X10^3/uL (150-400); Red Cell Distribution Width 14.2 % (11.6-14.8); White Blood Cell Count 6.1 X10^3/uL (4.5-11.0)
[2019-05-24 15:58] LABS: Alanine Aminotransferase 22 IU/L (<35); Albumin 4.3 g/dL (3.5-5.0); Albumin Globulin Ratio 1.3 (1.0-2.8); Alkaline Phosphatase 77 U/L (38-126); Aspartate Aminotransferase 27 IU/L (14-36); BUN Creatinine Ratio 20.7 (6-22); Bilirubin Total 0.4 mg/dL (0.2-1.3); Blood Urea Nitrogen 12 mg/dL (7-17); Calcium 9.2 mg/dL (8.4-10.2); Carbon Dioxide 26 mmol/L (22-32); Chloride 106 mmol/L (98-107); Estimated Glomerular Filt Rate > 60.0 mL/min (>60); Globulin 3.2 g/dL (1.7-4.1); Glucose 112 mg/dL (80-110); HEMOLYSIS < 15 (0-50); Lipase 122 U/L (23-300); Potassium 4.4 mmol/L (3.4-5.1); Sodium 139 mmol/L (137-145); Total Protein 7.5 g/dL (6.3-8.2)
[2019-05-24 16:00] LABS: C-Reactive Protein Quant < 0.5 mg/dL (<1.0)
[2019-05-24 16:02] LABS: Erythrocyte Sedimentation Rate 8 MM/HR (0-20)
== END ==
PROVIDERS: PCP Student in an Organized Health Care Education/Training Program; Referring Provider Student in an Organized Health Care Education/Training Program; Visit Provider Student in an Organized Health Care Education/Training Program
DX: R10.9 Unspecified abdominal pain (principal)
CPT/HCPCS: 36415; 80053; 83690; 85025; 85651; 86140

== ENCOUNTER → 2019-05-27 10:53 | Outpatient (CLI) | payer MEDICARE, MEDICAID, SELFPAY ==
--- NOTE | 2019-05-27 11:42 | DI.CT.S_ITS ---
PROCEDURE: CT ABDOMEN PELVIS W CON INDICATIONS: Left upper quadrant pain TECHNIQUE: After the administration of oral and intravenous contrast, 5 mm thick sections acquired from the diaphragms to the symphysis. 5 mm thick coronal and sagittal reformats were performed. For radiation dose reduction, the following was used: automated exposure control, adjustment of mA and/or kV according to patient size. COMPARISON: None. FINDINGS: Image quality: Excellent. ABDOMEN: Lung bases: Lung bases are clear. Heart size is normal. Sternotomy wires are seen on manager validation image Solid organs: Liver is normal in size and enhancement. Diffuse fatty liver infiltration is noted. Gallbladder has been removed. Biliary system is non-dilated. Pancreas enhances normally. Spleen is normal in size and enhancement. Accessory splenules are seen adjacent to the primary spleen. No adrenal nodules. Kidneys are normal in size and enhancement, without hydronephrosis. Peritoneum and bowel: Stomach, small bowel, and colon loops are normal in caliber and wall thickness. No free fluid or air. Diverticulosis is seen, without findings of active diverticulitis. Nodes and vessels: No retroperitoneal or mesenteric adenopathy. Aorta and inferior vena cava are normal in caliber. Miscellaneous: A fat-containing ventral wall hernia is seen, with rectus diastasis, as on series 2 image 56. PELVIS: Genitourinary: Bladder wall thickness is normal. This patient is status post hysterectomy. No adnexal masses are seen. Miscellaneous: No inguinal hernias or adenopathy. Bones: No suspicious bony lesions. No vertebral body compression fractures. Mild dextroconvex scoliotic curvature is seen. Moderate to severe disc space narrowing is seen at L1-L2 and L2-L3, with associated degenerative changes. Milder degenerative changes are seen elsewhere. IMPRESSION: No imaging explanation is found for this patient's presenting history of left upper quadrant pain. Incidental note is made of: Sternotomy wires Accessory splenules Cholecystectomy Fatty liver infiltration Rectus diastasis, with a fat-containing ventral hernia Hysterectomy Diverticulosis is seen, without findings of active diverticulitis. Focal L1-L2 and L2-L3 degenerative change Mild dextroconvex scoliotic curvature Dictated by: Spenser Jara M.D. on 05/27/2019 at 11:24 Approved by: Spenser Jara M.D. on 05/27/2019 at 11:29
== END ==
PROVIDERS: PCP Student in an Organized Health Care Education/Training Program; Referring Provider Physician Assistant; Visit Provider Physician Assistant
DX: R10.12 Left upper quadrant pain (principal); K76.0 Fatty (change of) liver, not elsewhere classified; K57.90 Diverticulosis of intestine, part unspecified, without perforation or abscess without bleeding; Q89.09 Congenital malformations of spleen; K43.9 Ventral hernia without obstruction or gangrene; M62.08 Separation of muscle (nontraumatic), other site; M47.816 Spondylosis without myelopathy or radiculopathy, lumbar region; M41.9 Scoliosis, unspecified; Z90.49 Acquired absence of other specified parts of digestive tract; Z90.710 Acquired absence of both cervix and uterus
CPT/HCPCS: 74177; Q9967

== ENCOUNTER → 2019-08-24 14:07 | Outpatient (CLI) | payer MEDICARE, MEDICAID, SELFPAY ==
--- NOTE | 2019-08-24 | DI.RAD.S_ITS ---
PROCEDURE: XR CHEST 2V INDICATIONS: Other chest pain, sternal pain TECHNIQUE: 2 views of the chest were acquired. COMPARISON: [facility], CT, CT ANGIO CHEST, 05/02/2019, 14:09. FINDINGS: Surgical changes and devices: Median sternotomy changes again noted. Lungs and pleura: Lungs are clear. No pleural effusions or pneumothorax. Mediastinum: Mediastinal contours are normal. Heart size is normal. Bones and chest wall: No suspicious bony abnormalities. Soft tissues appear unremarkable. IMPRESSION: No acute cardiopulmonary process demonstrated radiographically. Dictated by: Sivakumar Aviles M.D. on 08/24/2019 at 14:35 Approved by: Sivakumar Aviles M.D. on 08/24/2019 at 14:36
== END ==
PROVIDERS: PCP Student in an Organized Health Care Education/Training Program; Referring Provider Hospitalist; Visit Provider Hospitalist
DX: R07.89 Other chest pain (principal)
CPT/HCPCS: 71046

== ENCOUNTER → 2019-11-08 11:32 | Outpatient (CLI) | payer MEDICARE, MEDICAID, SELFPAY ==
[2019-11-08 12:34] LABS: Uric Acid 6.8 mg/dL (2.5-6.2)
== END ==
PROVIDERS: PCP Student in an Organized Health Care Education/Training Program; Referring Provider Student in an Organized Health Care Education/Training Program; Visit Provider Student in an Organized Health Care Education/Training Program
DX: M10.9 Gout, unspecified (principal)
CPT/HCPCS: 36415; 84550

== ENCOUNTER → 2019-12-19 07:13 | Outpatient (CLI) | payer MEDICARE, MEDICAID, SELFPAY ==
[2019-12-19 10:36] LABS: Cholesterol 243 mg/dL (140-199); HDL Cholesterol 45 mg/dL (40-60); LDL Cholesterol Calculated 133 mg/dL (<100); Triglycerides 324 mg/dL (35-150)
== END ==
PROVIDERS: PCP Student in an Organized Health Care Education/Training Program; Referring Provider Internal Medicine Cardiovascular Disease; Visit Provider Internal Medicine Cardiovascular Disease
DX: Z13.220 Encounter for screening for lipoid disorders (principal); I10 Essential (primary) hypertension
CPT/HCPCS: 36415; 80061

== ENCOUNTER → 2019-12-27 08:04 | Outpatient (CLI) | payer MEDICARE, MEDICAID, SELFPAY ==
--- NOTE | 2019-12-27 | DI.ECHO.S_ITS ---
[facility]---------+ [facility] +---------+ : : [address] : : : : [id number] : : : : Phone: [phone]+ Echocardiogram Report + + :Name: ESME ANGEL Study Date: 12/27/2019 Height: 68 in : :[facility] Weight: 226 lb : : Gender: Female BSA: 2.2 m2 : :: 1960 Age: 59 yrs BP: 110/82 mmHg: :Reason For Study: Right Atrial Myxoma : :Ordering Physician: RAIN, : :VAMSHI Performed By: Dominique Montoya : :Referring: VAMSHI RODRIGEZ : + + Interpretation Summary The ejection fraction is estimated to be 50-55%. Septal motion is consistent with conduction abnormality. There is mild tricuspid regurgitation. The right ventricular systolic pressure is estimated to be at least 22 mmHg based on an estimated right atrial pressure of 3 mm Hg. Compared to the prior echo report on 2018, there is no significant change. Procedure: A two-dimensional transthoracic echocardiogram with color flow and Doppler was performed. The study quality was technically adequate. Comparison is made with the echocardiogram of 02/11/2019. The heart rate ranged between 57-68 bpm during the study. Left Ventricle: The left ventricle is normal in size and wall thickness. The ejection fraction is estimated to be 50-55%. Septal motion is consistent with conduction abnormality. Right Ventricle: The right ventricle grossly appears normal in size with probable normal systolic function. Atria: The left atrial size is normal. Right atrial size is normal. There is no Doppler evidence for an interatrial shunt. Mitral Valve: The mitral valve is normal in structure and function. There is mild mitral regurgitation. Aortic Valve: The aortic valve is trileaflet. The aortic valve opens well. There is no aortic valve stenosis. No aortic regurgitation is present. Tricuspid Valve: The tricuspid valve is normal in structure and function. There is mild tricuspid regurgitation. The right ventricular systolic pressure is estimated to be at least 22 mmHg based on an estimated right atrial pressure of 3 mm Hg. Pulmonic Valve: The pulmonic valve leaflets are thin and pliable; valve motion is normal. There is no pulmonic valvular regurgitation. Great Vessels: The aortic root is normal size. The ascending aorta is mildly enlarged. The IVC is of normal diameter and collapses greater than 50% with a sniff. This suggests a low right atrial pressure of 3 mm Hg. Pericardium/ Pleura There is no pericardial effusion. There is no pleural effusion. MMode/2D Measurements & Calculations LVIDd: 4.2 cm LVOT diam: 2.1 cm LVIDs: 3.1 cm Ao root diam: 2.9 cm FS: 27.0 % asc Aorta Diam: 3.4 cm EPSS: 0.65 cm Ao Arch Diam (Prox Trans): 3.2 cm IVSd: 0.74 cm LVPWd: 0.83 cm LV montero. diameter/BSA (cm/m^2): 2.0 LV sys. diameter/BSA (cm/m^2): 1.4 LA A2 area: 18.4 cm2 RA long axis: 5.1 cm LA A4 area: 23.0 cm2 RA area: 14.3 cm2 LA length (vol): 5.6 cm RA vol: 34.2 ml LA vol: 64.5 ml RA : 15.9 ml/m2 LA vol index: 30.0 ml/m2 IVC diam: 1.7 cm RVD1 (basal): 3.3 cm Doppler Measurements & Calculations Ao V2 max: 144.7 cm/sec LVOT Max Aung: 102.0 cm/sec Ao V2 mean: 90.7 cm/sec LV V1 max P.2 mmHg Ao max P.4 mmHg LV V1 VTI: 23.8 cm Ao mean P.9 mmHg MADISYN(I,D): 3.2 cm2 Ao V2 VTI: 24.8 cm MADISYN(V,D): 2.4 cm2 sev ratio: 0.96 MADISYN indexed to BSA (cm^2/m^2): 1.5 MV E max aung: 57.7 cm/sec TR max aung: 221.5 cm/sec MV A max aung: 60.3 cm/sec TR max P.6 mmHg MV E/A: 0.96 PA V2 max: 65.9 cm/sec Med Peak E' Aung: 7.7 cm/sec PA V2 mean: 43.0 cm/sec E/E' med: 7.5 PA mean P.88 mmHg Lat Peak E' Aung: 9.1 cm/sec PA pr(Accel): 32.8 mmHg E/E' lat: 6.3 E/e' average: 6.9 MV dec time: 0.29 sec SVLVOT): 80.5 ml Reading Physician:04:31 PM
== END ==
PROVIDERS: PCP Student in an Organized Health Care Education/Training Program; Referring Provider Student in an Organized Health Care Education/Training Program; Visit Provider Internal Medicine Cardiovascular Disease
DX: I08.1 Rheumatic disorders of both mitral and tricuspid valves (principal); D15.1 Benign neoplasm of heart; I77.89 Other specified disorders of arteries and arterioles
CPT/HCPCS: 93306

== ENCOUNTER → 2020-01-16 09:33 | Outpatient (CLI) | payer MEDICARE, MEDICAID, SELFPAY ==
[2020-01-16 10:23] LABS: Hemoglobin A1C% w Est Avg Glu 5.8 % (4.0-6.0)
== END ==
PROVIDERS: PCP Student in an Organized Health Care Education/Training Program; Referring Provider Student in an Organized Health Care Education/Training Program; Visit Provider Student in an Organized Health Care Education/Training Program
DX: E66.9 Obesity, unspecified (principal); R73.9 Hyperglycemia, unspecified
CPT/HCPCS: 36415; 83036

== ENCOUNTER 2020-02-14 14:08 | Emergency (ER) | payer MEDICARE, MEDICAID, SELFPAY ==
[2020-02-14 14:15] VITALS: BP 116/67; PULSE 88; RESP 14; TEMP 36.8; O2SAT 98; BMI 35.2
== END 2020-02-14 16:52 | disposition left against medical advice (07) ==
PROVIDERS: Emergency Provider Emergency Medicine; PCP Student in an Organized Health Care Education/Training Program
DX: R42 Dizziness and giddiness (principal)
CPT/HCPCS: 99281

== ENCOUNTER → 2020-02-28 07:27 | Outpatient (CLI) | payer MEDICARE, MEDICAID, SELFPAY ==
[2020-02-28 09:01] LABS: TSH w/ Reflex to FT4 0.96 uIU/mL (0.47-4.68)
== END ==
PROVIDERS: PCP Student in an Organized Health Care Education/Training Program; Referring Provider Student in an Organized Health Care Education/Training Program; Visit Provider Student in an Organized Health Care Education/Training Program
DX: E04.2 Nontoxic multinodular goiter (principal)
CPT/HCPCS: 36415; 84443

== ENCOUNTER → 2020-03-26 09:38 | Outpatient (CLI) | payer MEDICARE, MEDICAID, SELFPAY ==
--- NOTE | 2020-03-26 09:39 | DI.US.S_ITS ---
PROCEDURE: US ABDOMEN COMPLETE INDICATIONS: lower abd pain TECHNIQUE: Real-time scanning was performed of the abdominal and retroperitoneal organs, with image documentation. COMPARISON: [facility], US, US ABDOMEN COMPLETE, 09/03/2018, 8:08. FINDINGS: Liver: The liver demonstrates prominent size. The liver demonstrates generalized moderately to prominently increased echogenicity. This decreases ultrasound sensitivity for detection of hepatic masses. Gallbladder: Removed. No significant abnormality of the gallbladder fossa can be seen. Biliary ducts: Intrahepatic bile ducts are non-dilated. Extrahepatic bile duct caliber measures 6 mm. Normal is 6-7 mm or less in diameter, or 10 mm or less post-cholecystectomy. Pancreas: Visualized portions of the pancreas are sonographically normal. Spleen: Spleen is normal in size and homogeneous in echotexture. Kidneys: Kidneys are normal in size and echotexture. Right kidney measures 13.8 cm long; left kidney measures 12 cm long. No hydronephrosis or nephrolithiasis. No solid masses. Aorta: Visualized aorta is normal in caliber at less than 3 cm. Iliacs: Proximal common iliac arteries are normal in caliber at less than 2.5 cm. IVC: Intrahepatic inferior vena cava is patent. Miscellaneous: No free abdominal fluid. IMPRESSION: Status post cholecystectomy, without biliary dilatation. No hydronephrosis is seen. Enlarged, fatty liver. Dictated by: Spenser Jara M.D. on 03/26/2020 at 10:32 Approved by: Spenser Jara M.D. on 03/26/2020 at 10:34
== END ==
PROVIDERS: PCP Student in an Organized Health Care Education/Training Program; Referring Provider Student in an Organized Health Care Education/Training Program; Visit Provider Student in an Organized Health Care Education/Training Program
DX: R10.30 Lower abdominal pain, unspecified (principal); K76.0 Fatty (change of) liver, not elsewhere classified; Z90.49 Acquired absence of other specified parts of digestive tract
CPT/HCPCS: 76700

== ENCOUNTER → 2020-04-09 13:15 | Outpatient (CLI) | payer MEDICARE, MEDICAID, SELFPAY ==
[2020-04-09 13:25] LABS: Bacteria Urine None Seen
[2020-04-09 13:44] LABS: Bilirubin Urine UA NEGATIVE (NEGATIVE); Color Urine UA YELLOW; Glucose Urine UA NEGATIVE (Negative); Ketones Urine UA NEGATIVE (NEGATIVE); Leukocyte Esterase Urine UA 1+ (NEGATIVE); Nitrite Urine UA NEGATIVE (Negative); Occult Blood Urine UA 1+ (Negative); Protein Urine UA NEGATIVE (Negative); Specific Gravity Urine UA <=1.005 (1.000-1.035); Urobilinogen Urine UA 0.2 E.U./dL (0.2)
[2020-04-09 13:46] LABS: Appearance Urine UA Slightly Cloudy
[2020-04-09 13:52] LABS: Culture Indicated Urine Specimen Cultured; RBC Urine 1-5/HPF (0-5/HPF); Squamous Epithelial Cell Urine 0-1 /HPF (0-5/HPF); WBC Urine 5-10/HPF (0-5/HPF)
[2020-04-09 15:17] LABS: Alanine Aminotransferase 16 IU/L (<35); Albumin Globulin Ratio 1.3 (1.0-2.8); Alkaline Phosphatase 79 U/L (38-126); Aspartate Aminotransferase 20 IU/L (14-36); Bilirubin Total 0.2 mg/dL (0.2-1.3); Bilirubin Unconjugated 0.2 mg/dL (0.0-1.1); Gamma Glutamyl Transpeptidase 37 U/L (12-43); HEMOLYSIS < 15 (0-50)
== END ==
PROVIDERS: PCP Student in an Organized Health Care Education/Training Program; Referring Provider Student in an Organized Health Care Education/Training Program; Visit Provider Student in an Organized Health Care Education/Training Program
DX: K76.0 Fatty (change of) liver, not elsewhere classified (principal); R31.9 Hematuria, unspecified
CPT/HCPCS: 36415; 80076; 81001; 82977; 87086

== ENCOUNTER → 2020-04-11 12:19 | Outpatient (CLI) | payer MEDICARE, MEDICAID, SELFPAY ==
[2020-04-11 13:56] LABS: Adenovirus F 40/41 Not Detected (Not Detect); Astrovirus Not Detected (Not Detect); Campylobacter Not Detected (Not Detect); Clostridium difficile toxin AB Not Detected (Not Detect); Cryptosporidium Not Detected (Not Detect); Cyclospora cayetanensis Not Detected (Not Detect); Entamoeba histolytica Not Detected (Not Detect); Enteroaggregative E.coli Not Detected (Not Detect); Enteropathogenic E.coli Not Detected (Not Detect); Enterotoxigenic E.coli It/st Not Detected (Not Detect); Giardia lamblia Not Detected (Not Detect); Norovirus GI/GII Not Detected (Not Detect); Plesiomonsa shigelloides Not Detected (Not Detect); Rotavirus A Not Detected (Not Detect); Salmonella Not Detected (Not Detect); Sapovirus Not Detected (Not Detect); Shiga-like toxin-prod E.coli Not Detected (Not Detect); Shigella/Enteroinvasive E.coli Not Detected (Not Detect); Vibrio Not Detected (Not Detect); Vibrio cholerae Not Detected (Not Detect); Yersinia enterocolitica Not Detected (Not Detect)
== END ==
PROVIDERS: PCP Student in an Organized Health Care Education/Training Program; Referring Provider Physician Assistant; Visit Provider Physician Assistant
DX: R19.4 Change in bowel habit (principal)
CPT/HCPCS: 87507

== ENCOUNTER → 2020-05-11 13:31 | Outpatient (CLI) | payer MEDICARE, MEDICAID, SELFPAY ==
--- NOTE | 2020-05-11 13:32 | DI.MG.S_ITS ---
BILATERAL DIGITAL SCREENING MAMMOGRAM 3D/2D WITH CAD: 05/11/2020 CLINICAL: Routine screening. Comparison is made to exams dated: 05/20/2018 mammogram, 05/08/2017 mammogram, and 05/15/2010 mammogram - Located [facility]. There are scattered fibroglandular elements in both breasts. Current study was also evaluated with a Computer Aided Detection (CAD) system. There are expected post operative findings in both breasts from interval reduction mammoplasty. No significant masses, calcifications, or other findings are seen in either breast. IMPRESSION: BENIGN There is no mammographic evidence of malignancy. A 1 year screening mammogram is recommended. This exam was interpreted at Station ID: [id number]. NOTE: For mammograms, a report in lay terms will be sent to the patient. Approximately 15% of breast malignancies will not be visualized mammographically. In the management of a palpable breast mass, a negative mammogram must not discourage biopsy of a clinically suspicious lesion. Electronically Signed By: Clayton Gomez M.D. aty/:05/11/2020 14:13:54 letter sent: Normal Exam ACR BI-RADS Category 2: Benign Finding(s) 3342F
== END ==
PROVIDERS: PCP Student in an Organized Health Care Education/Training Program; Referring Provider Student in an Organized Health Care Education/Training Program; Visit Provider Student in an Organized Health Care Education/Training Program
DX: Z12.31 Encounter for screening mammogram for malignant neoplasm of breast (principal)
CPT/HCPCS: 77063; 77067

== ENCOUNTER → 2020-06-07 11:10 | Outpatient (CLI) | payer MEDICARE, MEDICAID, SELFPAY ==
[2020-06-07] MEDS: COVID-19 VACC #1, MRNA(MOD) 100 MCG/0.5 ML VIAL IM (11:22)
== END ==
PROVIDERS: PCP Student in an Organized Health Care Education/Training Program; Visit Provider Internal Medicine
DX: Z23 Encounter for immunization (principal)
CPT/HCPCS: 0011A; 91301

== ENCOUNTER → 2020-07-05 10:19 | Outpatient (CLI) | payer MEDICARE, MEDICAID, SELFPAY ==
[2020-07-05] MEDS: COVID-19 VACC #2, MRNA(MOD) 100 MCG/0.5 ML VIAL IM (10:27)
== END ==
PROVIDERS: PCP Student in an Organized Health Care Education/Training Program; Visit Provider Internal Medicine
DX: Z23 Encounter for immunization (principal)
CPT/HCPCS: 0012A; 91301

== ENCOUNTER → 2020-08-02 12:01 | Outpatient (CLI) | payer MEDICARE, MEDICAID, SELFPAY ==
--- NOTE | 2020-08-02 12:03 | DI.US.S_ITS ---
PROCEDURE: US [facility] VENOUS LOW EXTREM LT INDICATIONS: Left leg pain concerning for clot TECHNIQUE: Real-time imaging, as well as color and pulse Doppler interrogation, were performed of the lower extremity deep veins from the inguinal ligament to the popliteal fossa. COMPARISON: [facility], [facility] VENOUS LOW EXTREM LT, 11/25/2018, 14:16. FINDINGS: The common femoral, femoral and popliteal veins are normally compressible, and free of intraluminal thrombus. Color and pulse Doppler demonstrate normal phasic intraluminal flow. There is normal augmentation response to distal compression maneuver. A knee joint effusion is seen. IMPRESSION: Negative for deep venous thrombosis. Knee joint effusion noted. Dictated by: Spenser Jara M.D. on 08/02/2020 at 11:41 Approved by: Spneser Jara M.D. on 08/02/2020 at 11:43
== END ==
PROVIDERS: PCP Student in an Organized Health Care Education/Training Program; Referring Provider Student in an Organized Health Care Education/Training Program; Visit Provider Student in an Organized Health Care Education/Training Program
DX: M79.605 Pain in left leg (principal); M25.462 Effusion, left knee
CPT/HCPCS: 93971

== ENCOUNTER → 2020-10-16 07:19 | Outpatient (CLI) | payer MEDICARE, MEDICAID, SELFPAY ==
[2020-10-16 09:49] LABS: Add Manual Diff / Slide Review NO; Basophils Absolute Auto 0 /uL (0-100); Basophils Percent Auto 0.1 % (0-2); Eosinophils Absolute Auto 0 /uL (0-450); Hematocrit 44.6 % (36-46); Hemoglobin 14.9 g/dL (12.0-16.0); Lymphocytes Absolute Auto 1600 /uL (1100-4500); Lymphocytes Percent Auto 29.2 % (25-40); Mean Corpuscular HGB Conc 33.4 % (30-36); Mean Corpuscular Hemoglobin 27.6 PG (26-34); Mean Corpuscular Volume 82.9 fL (80-100); Monocytes Absolute Auto 500 /uL (0-900); Monocytes Percent Auto 8.3 % (3-14); Neutrophils Absolute Auto 3400 /uL (1500-7000); Neutrophils Percent Auto 62.4 % (50-75); Platelet Count 300 X10^3/uL (150-400); Red Blood Cell Count 5.38 X10^6/uL (4.0-5.2); Red Cell Distribution Width 14.3 % (11.6-14.8); White Blood Cell Count 5.5 X10^3/uL (4.5-11.0)
[2020-10-16 10:03] LABS: Alanine Aminotransferase 17 IU/L (<35); Albumin 4.3 g/dL (3.5-5.0); Albumin Globulin Ratio 1.5 (1.0-2.8); Alkaline Phosphatase 71 U/L (38-126); Aspartate Aminotransferase 22 IU/L (14-36); BUN Creatinine Ratio 28.1 (6-22); Bilirubin Total 0.5 mg/dL (0.2-1.3); Blood Urea Nitrogen 16 mg/dL (7-17); Calcium 9.3 mg/dL (8.4-10.2); Carbon Dioxide 27 mmol/L (22-32); Chloride 103 mmol/L (98-107); Cholesterol 230 mg/dL (140-199); Estimated Glomerular Filt Rate > 60.0 mL/min (>60); Globulin 2.8 g/dL (1.7-4.1); Glucose 102 mg/dL (80-110); HDL Cholesterol 44 mg/dL (40-60); HEMOLYSIS < 15 (0-50); LDL Cholesterol Calculated 140 mg/dL (<100); Sodium 137 mmol/L (137-145); Total Protein 7.1 g/dL (6.3-8.2); Triglycerides 229 mg/dL (35-150)
[2020-10-16 10:20] LABS: Vitamin D 25 Hydroxy (D3) 27.1 ng/mL (30.0-100.0)
== END ==
PROVIDERS: PCP Student in an Organized Health Care Education/Training Program; Referring Provider Student in an Organized Health Care Education/Training Program; Visit Provider Student in an Organized Health Care Education/Training Program
DX: E55.9 Vitamin D deficiency, unspecified (principal); E04.2 Nontoxic multinodular goiter; E78.5 Hyperlipidemia, unspecified
CPT/HCPCS: 36415; 80053; 80061; 82306; 85025

== ENCOUNTER → 2021-01-21 07:56 | Outpatient (CLI) | payer MEDICARE, MEDICAID, SELFPAY ==
[2021-01-21 12:47] LABS: Free T4, Direct Thyroxine 1.08 ng/dL (0.78-2.19)
[2021-01-21 13:01] LABS: Thyroid Stimulating Hormone 0.723 uIU/mL (0.47-4.68)
== END ==
PROVIDERS: PCP Student in an Organized Health Care Education/Training Program; Referring Provider Student in an Organized Health Care Education/Training Program; Visit Provider Student in an Organized Health Care Education/Training Program
DX: R53.1 Weakness (principal); E16.2 Hypoglycemia, unspecified; R42 Dizziness and giddiness
CPT/HCPCS: 36415; 82784; 83516; 84439; 84443; 86255

== ENCOUNTER 2021-05-18 01:22 | Emergency (ER) | payer MEDICARE, MEDICAID, SELFPAY ==
[2021-05-18] VITALS (12 sets, daily range): BP systolic 99–124; BP diastolic 55–61; PULSE 79–96; RESP 18–28; TEMP 37.4–38.3; O2SAT 92–98; BMI 34.6
[2021-05-18] MEDS: ONDANSETRON 4 MG/2 ML INJ (01:41)
[2021-05-18] MEDS: SODIUM CHLORIDE 0.9% 1,000 ML 1000 ML IV (01:50)
--- NOTE | 2021-05-18 01:56 | DI.RAD.S_ITS ---
PROCEDURE: XR CHEST 1V INDICATIONS: fever post op TECHNIQUE: One view of the chest was acquired. COMPARISON: [facility], CR, XR CHEST 2V, 08/24/2019, 14:03. FINDINGS: Surgical changes and devices: Midline sternal wires. Lungs and pleura: Lungs are clear. No pleural effusions or pneumothorax. Minimal left basilar atelectasis Mediastinum: Mediastinal contours appear normal. Heart size is normal. Bones and chest wall: No suspicious bony lesions. Overlying soft tissues appear unremarkable. IMPRESSION: Minimal left basilar atelectasis. Approved by: Tyler Bella M.D. on 05/18/2021 at 6:51
--- NOTE | 2021-05-18 01:56 | DI.CT.S_ITS ---
PROCEDURE: CT ABDOMEN PELVIS W CON INDICATIONS: post op hiatal hernia surgery now fever and nausea TECHNIQUE: After the administration of intravenous contrast, axial sections acquired from the lung bases to the pubic symphysis. Coronal and sagittal reformats were performed. For radiation dose reduction, the following was used: automated exposure control, adjustment of mA and/or kV according to patient size. COMPARISON: [facility], CT, CT ABDOMEN PELVIS W CON, 05/27/2019, 11:41. FINDINGS: Lower thorax: Platelike atelectasis noted both lung bases. Heart size normal. No hiatal hernia. Liver: Bandlike hypoperfusion of the left hepatic lobe noted inferiorly. Biliary system: Cholecystectomy. Pancreas: Unremarkable without mass or inflammation evident. Spleen: Normal in size and density. Adrenals: Normal morphology and density. Reproductive system: Hysterectomy. Urinary system: Normal renal size and attenuation. No renal calculi, hydronephrosis, or solid mass present. Urinary bladder unremarkable. Gastrointestinal system: The bowel is unremarkable without evidence of bowel obstruction or inflammation. The stomach appears unremarkable. Multiple diverticula arise from the sigmoid colon without evidence of diverticulitis. Appendix: No findings to suggest acute appendicitis. Peritoneal spaces: No mesenteric or retroperitoneal adenopathy. No free air. Small amount of free fluid in pelvis. Vasculature: The IVC, aorta and iliac vasculature are unremarkable. Abdominal wall: Small focus of postprocedural air noted in the anterior abdominal wall subcutaneous tissue. Musculoskeletal: Normal bone mineralization. No acute fractures. IMPRESSION: 1. Bandlike hypoperfusion along the inferior surface of the liver. Differential would include retractor injury versus focal fatty infiltration. 2. Minimal free fluid in the pelvis. Note: Final report is concordant with preliminary interpretation by [employer] Approved by: Tyler Bella M.D. on 05/18/2021 at 7:04
--- NOTE | 2021-05-18 02:03 | ED_ITS ---
HPI - Abdominal Pain General Chief Complaint: Fever Stated Complaint: post op, very nauseous, not supposed to vomit Time Seen by Provider: 05/18/21 01:31 Source: patient Mode of arrival: Ambulatory History of Present Illness HPI narrative: Patient is a 60-year-old female who presents with nausea. She is postop from a hiatal hernia repair at [facility] on 05/16/2021. She said she stayed overnight there was small neck in her liver was discharged next day. She was supposed to get nausea medicine but did not. She has not thrown up but feels nauseous. She has no abdominal pain no chest pain shortness of breath painful or frequent urination. She is found to be febrile of 100.9. She says she did not know that she had a fever. Related Data Home Medications Medication Instructions Recorded Confirmed calcium carbonate 600 mg-vitamin 1 cap PO DAILY 03/02/18 04/22/21 D3 5 mcg (200 unit) capsule (Calcium 600 + D(3)) melatonin 5 mg capsule 5 mg PO BEDTIME cap 06/23/18 04/22/21 ascorbic acid (vitamin C) 500 mg 500 mg PO DAILY 08/24/18 04/22/21 chewable tablet cyanocobalamin (vitamin B-12) 1,000 mcg PO DAILY 08/24/18 04/22/21 1,000 mcg capsule omega 9-yvv-jlf-fish oil 1,000 mg 1 - 2 cap PO DAILY 10/27/18 04/22/21 (120 mg-180 mg) capsule (Fish Oil) Vitamin D3 400 IU See Rx Instructions .ROUTE .COMPLEX 12/22/18 04/22/21 multivitamin 1 tab PO .3 TIMES A WEEK tab 12/22/18 04/22/21 triamcinolone acetonide 55 mcg 2 spray NASAL .PRN 04/06/19 04/22/21 nasal spray aerosol (Nasacort) acetaminophen 325 mg capsule 650 mg PO Q4H PRN 05/03/19 04/22/21 (Tylenol) fluticasone furoate 27.5 1 spray NASAL DAILY 08/04/19 04/22/21 mcg/actuation nasal spray,suspension (Flonase Sensimist) Previous Rx's Medication Instructions Recorded blood sugar diagnostic (True #100 ea 03/06/20 Metrix Glucose Test Strip) allopurinol 100 mg tablet 100 mg PO DAILY #90 tab 02/05/21 estradiol See Rx Instructions VAG 2XW #42.5 03/12/21 gram nystatin-triamcinolone 100,000 1 applic TOPICAL BID #30 g 03/13/21 unit/gram-0.1 % topical ointment estradiol 0.25 g VAGINAL DAILY #42.5 g 03/21/21 fluconazole 150 mg tablet 150 mg PO ONCE #1 tab 03/21/21 (Diflucan) hydrocodone 7.5 mg-acetaminophen 1 tab PO BID PRN #60 tab 05/09/21 325 mg tablet ondansetron 4 mg disintegrating 4 mg PO Q6HR PRN #10 tab 05/18/21 tablet Allergies Allergy/AdvReac Type Severity Reaction Status Date / Time Sulfa (Sulfonamide Allergy Severe Possible Verified 04/22/21 08:46 Antibiotics) due to [SULFA (SULFONAMIDE Celebrex ANTIBIOTICS)] allergy fenofibrate [FENOFIBRATE] Allergy Intermediate Rash Verified 04/22/21 08:46 red yeast rice Allergy Mild Rash Verified 04/22/21 08:46 [RED YEAST RICE] external genital area adhesive AdvReac Severe REDNESS, Verified 04/22/21 08:46 ITCHING AND BLISTERS FROM ADHESIVE TAPE NSAIDS (Non-Steroidal AdvReac Severe Epigastric Verified 04/22/21 08:46 Anti-Inflamma pain - suspect ulcers montelukast AdvReac Intermediate SORES IN Verified 04/22/21 08:46 MY MOUTH AND NOSTRIL latex AdvReac Mild ITCHING Verified 04/22/21 08:46 CAT DANDER Allergy Intermediate ITCHY Uncoded 04/22/21 08:46 WATER EYES, CONGESTION, RUNNY NOSE Tree pollen Allergy Intermediate Birch/Anahi Uncoded 04/22/21 08:46 trees - Runny/Itchy nose/Eye irritation. Review of Systems Review of Systems Narrative: GENERAL:+ fever, Denies chills, fatigue, malaise, sweats, travel HEENT: Denies sinus pain, ear pain, sore throat, difficulty swallowing, neck pain RESPIRATORY: Denies dyspnea, cough, wheezing, hemoptysis, sputum. CARDIOVASCULAR: Denies chest pain, palpitations, orthopnea, edema GASTROINTESTINAL: See HPI : Denies dysuria, frequency, incontinence, hematuria, urinary retention, flank pain. MUSCULOSKELETAL: Denies weakness, joint pain, or bony pain SKIN: No rash, no erythema, no pruritus NEUROLOGIC: Denies weakness, dizziness, headache, numbness, change in speech, confusion PSYCHIATRIC: No concerning psychosocial issues. 12 point review of systems is negative except for those stated above and HPI Patient History Medical History Allergic rhinitis due to cat hair Atrial myxoma Bursitis (Unknown) Cholecystitis (Unknown) Degenerative myopia, bilateral Diverticulosis large intestine w/o perforation or abscess w/o bleeding Elevated uric acid in blood Esophageal dysmotility (08/28/15) GERD (gastroesophageal reflux disease) (Unknown) History of migraine (~2001) HLA B27 (HLA B27 positive) Hyperlipidemia (04/26/14) Obesity Plantar fasciitis (Unknown) Reactive arthritis of multiple sites Smallpox Surgical History History of open heart surgery History of tonsillectomy Hx of breast reduction, elective Hx of cholecystectomy (Unknown) Hx of knee surgery (Unknown) Hx of total hysterectomy (Unknown) Family History Mother Arthritis Social History Smoking Status: Former smoker Tobacco: How many years used: 13 second hand exposure: No alcohol intake: current substance use type: does not use Smoking Status: Former smoker alcohol intake frequency: holidays/special occasions only Substance Use Type: does not use Exam Initial Vital Signs Initial Vital Signs: Vital Signs Temperature 100.9 F H 05/18/21 01:34 Pulse Rate 96 H 05/18/21 01:34 Respiratory Rate 18 05/18/21 01:34 Blood Pressure 112/58 L 05/18/21 01:34 Pulse Oximetry 98 05/18/21 01:34 GENERAL: Alert well-appearing 60-year-old female HEENT: Head atraumatic,EOMI, pupils reactive, face symmetric, moist mucous membranes CARDIOVASCULAR: Regular rate and rhythm without murmurs, rubs or gallops. RESPIRATORY: Breath sounds equal bilaterally, no wheezes rales or rhonchi. ABDOMEN: Soft, soft nontender incision sites are clean and dry without erythema EXTREMITIES: Normal range of motion, no clubbing or edema. Neurovascularly intact NEUROLOGICAL: Alert and oriented x4.Normal gait and speech. SKIN: Warm, dry, no laceration, no petechiae, no rashes or lesions. Course Orders Ordered: ED Orders 05/18/21 01:45 Complete Blood Count AUTO DIFF Stat Comprehensive Metabolic Panel Stat Lactate (Lactic Acid) Stat Lipase Stat 05/18/21 01:56 CT abdomen pelvis w con Stat Chest [XR chest 1V] Stat 05/18/21 02:09 Blood Culture Stat 05/18/21 05:07 Urine Microscopic Stat Discontinued Medications Acetaminophen (Acetaminophen 325 Mg Tablet) 975 mg PO NOW ONE Stop: 05/18/21 02:16 Last Admin: 05/18/21 02:54 Dose: Not Given Documented by: IAM Acetaminophen (Acetaminophen Susp 650 Mg/20.3 Ml Udc) 975 mg PO NOW ONE Stop: 05/18/21 02:26 Last Admin: 05/18/21 02:55 Dose: 975 mg Documented by: IAM Sodium Chloride (Normal Saline 0.9%) 1,000 mls @ 1,000 mls/hr IV CONT SELENA Last Infusion: 05/18/21 05:00 Dose: 0 mls/hr Documented by: Admin: 05/18/21 01:50 Dose: 1,000 mls/hr Documented by: IAM Ondansetron HCl (Ondansetron 4 Mg Odt Prepack) 1 bottle MISC SEEINSTR ONE Stop: 05/18/21 01:30 Last Admin: 05/18/21 05:09 Dose: 1 bottle Documented by: IAM Vital Signs Vital signs: Vital Signs - 8 hr 05/18/21 01:34 05/18/21 01:46 05/18/21 02:00 Temperature 100.9 F H Pulse Rate 96 H 80 83 Respiratory Rate 18 18 23 Blood Pressure 112/58 L Pulse Oximetry 98 96 97 05/18/21 02:40 05/18/21 02:59 05/18/21 03:00 Temperature Pulse Rate 88 85 85 Respiratory Rate 26 H 25 H Blood Pressure 124/61 Pulse Oximetry 97 96 97 05/18/21 03:30 05/18/21 04:00 05/18/21 04:30 Temperature Pulse Rate 79 81 85 Respiratory Rate 28 H 27 H 27 H Blood Pressure Pulse Oximetry 94 94 92 05/18/21 04:42 05/18/21 04:51 05/18/21 05:31 Temperature 100.8 F H 99.3 F Pulse Rate 93 H Respiratory Rate Blood Pressure 99/55 L Pulse Oximetry 95 MDM - Abdominal Pain Lab Data Result diagrams: 05/18/21 01:45 05/18/21 01:45 Labs: Lab Results 05/18/21 05/18/21 05/18/21 Range/Units 01:45 01:45 01:45 WBC 10.2 (4.5-11.0) X10^3/uL RBC 5.12 (4.0-5.2) X10^6/uL Hgb 14.0 (12.0-16.0) g/dL Hct 42.7 (36-46) % MCV 83.4 (80-100) fL MCH 27.4 (26-34) PG MCHC 32.8 (30-36) % RDW 14.4 (11.6-14.8) % Plt Count 262 (150-400) X10^3/uL Neut % (Auto) 88.8 H (50-75) % Lymph % (Auto) 5.2 L (25-40) % [place] % (Auto) 5.9 (3-14) % Eos % (Auto) 0.0 L (2-4) % Baso % (Auto) 0.1 (0-2) % Neut # (Auto) 9100 H (5788-1941) /uL Lymph # (Auto) 500 L (8471-7518) /uL [place] # (Auto) 600 (0-900) /uL Eos # (Auto) 0 (0-450) /uL Baso # (Auto) 0 (0-100) /uL Sodium 135 L (137-145) mmol/L Potassium 3.5 (3.4-5.1) mmol/L Chloride 104 (98-107) mmol/L Carbon Dioxide 22 (22-32) mmol/L BUN 10 (7-17) mg/dL Creatinine 0.46 L (0.52-1.04) mg/dL Estimated GFR > 60.0 (>60) mL/min BUN/Creatinine Ratio 21.7 (6-22) Glucose 136 H (80-110) mg/dL Lactate 0.8 (0.7-2.1) mmol/L Calcium 8.3 L (8.4-10.2) mg/dL Total Bilirubin 0.7 (0.2-1.3) mg/dL AST 386 H (14-36) IU/L ALT 470 H (<35) IU/L Alkaline Phosphatase 69 (38-126) U/L Total Protein 7.2 (6.3-8.2) g/dL Albumin 4.2 (3.5-5.0) g/dL Globulin 3.0 (1.7-4.1) g/dL Albumin/Globulin Ratio 1.4 (1.0-2.8) Lipase 176 (23-300) U/L Urine RBC (0-5/HPF) Urine WBC (0-5/HPF) Urine Bacteria (None) Ur Culture Indicated? 05/18/21 Range/Units 05:07 WBC (4.5-11.0) X10^3/uL RBC (4.0-5.2) X10^6/uL Hgb (12.0-16.0) g/dL Hct (36-46) % MCV (80-100) fL MCH (26-34) PG MCHC (30-36) % RDW (11.6-14.8) % Plt Count (150-400) X10^3/uL Neut % (Auto) (50-75) % Lymph % (Auto) (25-40) % [place] % (Auto) (3-14) % Eos % (Auto) (2-4) % Baso % (Auto) (0-2) % Neut # (Auto) (3486-6885) /uL Lymph # (Auto) (6016-2708) /uL [place] # (Auto) (0-900) /uL Eos # (Auto) (0-450) /uL Baso # (Auto) (0-100) /uL Sodium (137-145) mmol/L Potassium (3.4-5.1) mmol/L Chloride (98-107) mmol/L Carbon Dioxide (22-32) mmol/L BUN (7-17) mg/dL Creatinine (0.52-1.04) mg/dL Estimated GFR (>60) mL/min BUN/Creatinine Ratio (6-22) Glucose (80-110) mg/dL Lactate (0.7-2.1) mmol/L Calcium (8.4-10.2) mg/dL Total Bilirubin (0.2-1.3) mg/dL AST (14-36) IU/L ALT (<35) IU/L Alkaline Phosphatase (38-126) U/L Total Protein (6.3-8.2) g/dL Albumin (3.5-5.0) g/dL Globulin (1.7-4.1) g/dL Albumin/Globulin Ratio (1.0-2.8) Lipase (23-300) U/L Urine RBC 0-1/hpf (0-5/HPF) Urine WBC None seen (0-5/HPF) Urine Bacteria None seen (None) Ur Culture Indicated? Cult not indicated Point of care testing: Urine Dip Bedside Urine Glucose Negative Bedside Urine Bilirubin - Negative Bedside Urine Ketone + 15 Bedside Urine Occult Blood ++ Imaging Data Chest x-ray: Radiologist's Impression: Preliminary report. Blunting of left costophrenic angle and slight opacity at left base may represent pleural effusions scarring and/or atelectasis. Active infiltrate less likely. Some apparent mild cardiomegaly may be related to differences in technique. Close follow-up recommended CT scan - abdomen/pelvis: Radiologist's Impression: Preliminary report: Slight ascites MDM Narrative Medical decision making narrative: Patient is found to have low-grade fever. Workup for fever does not reveal source. She overall appears well she is not septic. Her blood pressure is noted to be slightly low however patient states her normal blood pressure systolic 100 and that it is always low. She is found to have elevated liver enzymes without right upper quadrant pain or elevated bilirubin. Surgery has confirm that this is a normal postoperative finding. [address] Dr Dickens, (resident ) at [facility], has been updated patient's symptoms and test results. At this time if no source recommends patient can follow up early next week and return as needed if fever worse Discharge Plan Departure Patient Disposition: Home Clinical Impression: Fever postop, Nausea Instructions: DI for Fever (Symptom) -- Adult, Nausea and Vomiting-Adult Activity Restrictions/Additional Instructions: *You have been diagnosed with postoperative fever and his nausea *What to do: At this time it is unclear what is causing your fever. Please continue to monitor fever. He will need follow-up with your surgeon *Continue to take medications as directed Tylenol 650 mg every 4-6 hours if needed for fever Zofran 4 mg every 8 hours if needed for nausea or vomiting *Follow up with your primary care provider in 2-3 days or call [phone] *Return to ER if you should have persistent fever greater than 100.4 for 1 hour or more than 101, persistent nausea, increasing abdominal pain, painful frequent urination or any new, worsening or concerning symptoms Prescriptions: New ondansetron 4 mg tablet,disintegrating 4 mg PO Q6HR PRN (Reason: nausea and vomiting) Qty: 10 0RF No Action Calcium 600 + D(3) 600 mg calcium- 200 unit Capsule 1 cap PO DAILY 0RF Label Comments: 1 tab (600 mg Calcium/ ? Vitamin D3) PO every day. (DME) True Metrix Glucose Test Strip Strip See Rx Instructions .ROUTE .MEDSUPPLY Qty: 100 3RF Rx Instructions: Use to test blood sugars one time a day estradiol 0.01 % (0.1 mg/gram) cream See Rx Instructions VAG 2XW Qty: 42.5 6RF Rx Instructions: Apply pea size amount vaginal twice a week; nystatin-triamcinolone 100,000-0.1 unit/gram-% ointment 1 applic topical BID Qty: 30 0RF Rx Instructions: Apply small amount to effected area twice daily hydrocodone-acetaminophen 7.5-325 mg tablet 1 tab PO BID PRN (Reason: pain) Qty: 60 0RF melatonin 5 mg capsule 5 mg PO BEDTIME 0RF Vitamin D3 400 IU See Rx Instructions .ROUTE .COMPLEX 0RF Rx Instructions: 1 softgel PO DAILY multivitamin Tablet 1 tab PO .3 TIMES A WEEK 0RF Label Comments: Thursday, Thursday and Thursday. Flonase Sensimist 27.5 mcg/actuation spray,suspension 1 spray NASAL DAILY 0RF Rx Instructions: into each nostril estradiol 0.01 % (0.1 mg/gram) cream 0.25 g vaginal DAILY Qty: 42.5 3RF Rx Instructions: Place a small amount on clitoral area daily for 30 days as well as small amount to vaginal opening twice a week fluconazole [Diflucan] 150 mg tablet 150 mg PO ONCE Qty: 1 2RF Rx Instructions: as a single dose ascorbic acid (vitamin C) 500 mg tablet,chewable 500 mg PO DAILY 0RF cyanocobalamin (vitamin B-12) 1,000 mcg capsule 1,000 mcg PO DAILY 0RF triamcinolone acetonide [Nasacort] 55 mcg aerosol,spray 2 spray NASAL .PRN 0RF allopurinol 100 mg tablet 100 mg PO DAILY Qty: 90 3RF omega 8-kjy-rcy-fish oil [Fish Oil] 1,000 mg (120 mg-180 mg) Capsule 1 - 2 cap PO DAILY 0RF acetaminophen [Tylenol] 325 mg capsule 650 mg PO Q4H PRN0RF Referrals: Dieter Lainez MD [Primary Care Provider] - Rosy Wick MD [Non-Staff] -
[2021-05-18 02:06] LABS: Add Manual Diff / Slide Review NO; Basophils Absolute Auto 0 /uL (0-100); Basophils Percent Auto 0.1 % (0-2); Eosinophils Absolute Auto 0 /uL (0-450); Hematocrit 42.7 % (36-46); Lymphocytes Absolute Auto 500 /uL (1100-4500); Lymphocytes Percent Auto 5.2 % (25-40); Mean Corpuscular HGB Conc 32.8 % (30-36); Mean Corpuscular Hemoglobin 27.4 PG (26-34); Mean Corpuscular Volume 83.4 fL (80-100); Monocytes Absolute Auto 600 /uL (0-900); Monocytes Percent Auto 5.9 % (3-14); Neutrophils Absolute Auto 9100 /uL (1500-7000); Neutrophils Percent Auto 88.8 % (50-75); Platelet Count 262 X10^3/uL (150-400); Red Blood Cell Count 5.12 X10^6/uL (4.0-5.2); Red Cell Distribution Width 14.4 % (11.6-14.8); White Blood Cell Count 10.2 X10^3/uL (4.5-11.0)
[2021-05-18 02:11] LABS: Lactate (Lactic Acid) 0.8 mmol/L (0.7-2.1)
[2021-05-18 02:12] LABS: Alanine Aminotransferase 470 IU/L (<35); Albumin 4.2 g/dL (3.5-5.0); Albumin Globulin Ratio 1.4 (1.0-2.8); Alkaline Phosphatase 69 U/L (38-126); Aspartate Aminotransferase 386 IU/L (14-36); BUN Creatinine Ratio 21.7 (6-22); Bilirubin Total 0.7 mg/dL (0.2-1.3); Blood Urea Nitrogen 10 mg/dL (7-17); Calcium 8.3 mg/dL (8.4-10.2); Carbon Dioxide 22 mmol/L (22-32); Chloride 104 mmol/L (98-107); Estimated Glomerular Filt Rate > 60.0 mL/min (>60); Glucose 136 mg/dL (80-110); HEMOLYSIS < 15 (0-50); Lipase 176 U/L (23-300); Potassium 3.5 mmol/L (3.4-5.1); Sodium 135 mmol/L (137-145); Total Protein 7.2 g/dL (6.3-8.2)
[2021-05-18] MEDS: ACETAMINOPHEN SUSP 650 MG/20.3 ML UDC 975 MG PO (02:55)
[2021-05-18] MEDS: ONDANSETRON 4 MG ODT PREPACK 1 BOTTLE MISC (05:09)
[2021-05-18 05:10] LABS: Bacteria Urine None Seen; Culture Indicated Urine Cult Not Indicated; RBC Urine 0-1/HPF (0-5/HPF); WBC Urine None Seen (0-5/HPF)
== END 2021-05-18 05:15 | disposition home or self-care (01) ==
PROVIDERS: Emergency Provider Emergency Medicine; PCP Student in an Organized Health Care Education/Training Program
DX: R50.82 Postprocedural fever (principal); R11.0 Nausea
CPT/HCPCS: 36415; 71045; 74177; 80053; 81003; 81015; 83605; 83690; 85025; 87040; 99284; J2405; Q9967

== ENCOUNTER → 2021-06-04 14:20 | Outpatient (CLI) | payer MEDICARE, MEDICAID, SELFPAY ==
[2021-06-04 15:21] LABS: Alanine Aminotransferase 23 IU/L (<35); Albumin 4.2 g/dL (3.5-5.0); Albumin Globulin Ratio 1.5 (1.0-2.8); Alkaline Phosphatase 68 U/L (38-126); Aspartate Aminotransferase 24 IU/L (14-36); Bilirubin Total 0.3 mg/dL (0.2-1.3); Bilirubin Unconjugated 0.4 mg/dL (0.0-1.1); Gamma Glutamyl Transpeptidase 23 U/L (12-43); Globulin 2.8 g/dL (1.7-4.1); HEMOLYSIS 16 (0-50)
== END ==
PROVIDERS: PCP Student in an Organized Health Care Education/Training Program; Referring Provider Student in an Organized Health Care Education/Training Program; Visit Provider Student in an Organized Health Care Education/Training Program
DX: K91.81 Other intraoperative complications of digestive system (principal); K82.8 Other specified diseases of gallbladder; R10.11 Right upper quadrant pain
CPT/HCPCS: 36415; 80076; 82977

== ENCOUNTER → 2021-12-18 16:11 | Outpatient (CLI) | payer MEDICARE, MEDICAID, SELFPAY ==
--- NOTE | 2021-12-18 16:12 | DI.MG.S_ITS ---
BILATERAL DIGITAL SCREENING MAMMOGRAM 3D/2D WITH CAD: 12/18/2021 CLINICAL: Routine screening. Comparison is made to exams dated: 05/11/2020 mammogram, 05/20/2018 mammogram, and 05/08/2017 mammogram - [facility]. There are scattered areas of fibroglandular density in both breasts (category b / 25%-50% glandular tissue). Current study was also evaluated with a Computer Aided Detection (CAD) system. There is possible architectural distortion with an obscured margin in the right breast middle depth central to the nipple seen on the mediolateral oblique view only. No other significant masses, calcifications, or other findings are seen in either breast. IMPRESSION: INCOMPLETE: NEEDS ADDITIONAL IMAGING EVALUATION The possible architectural distortion in the right breast is indeterminate. Additional views with possible ultrasound are recommended. Based on the Tyrer Cuzick model (a risk assessment model) the patient's lifetime risk is 7.3% and her 10 year risk is 3.3%. According to the ACR, ACS, and NCCN guidelines, an annual breast MRI exam along with mammogram is recommended if the patient's lifetime risk is 20% or greater. This exam was interpreted at Station ID: [id number]. NOTE: For mammograms, a report in lay terms will be sent to the patient. Approximately 15% of breast malignancies will not be visualized mammographically. In the management of a palpable breast mass, a negative mammogram must not discourage biopsy of a clinically suspicious lesion. Electronically Signed By: Sivakumar Aviles M.D., jr/cely:12/19/2021 14:21:17 letter sent: Additional Imaging Needed ACR BI-RADS Category 0: Incomplete 3340F
== END ==
PROVIDERS: PCP Student in an Organized Health Care Education/Training Program; Referring Provider Student in an Organized Health Care Education/Training Program; Visit Provider Student in an Organized Health Care Education/Training Program
DX: Z12.31 Encounter for screening mammogram for malignant neoplasm of breast (principal)
CPT/HCPCS: 77063; 77067

== ENCOUNTER → 2022-02-26 13:26 | Outpatient (CLI) | payer MEDICARE, MEDICAID, SELFPAY ==
--- NOTE | 2022-02-26 | DI.MG.S_ITS ---
UNILATERAL RIGHT DIGITAL DIAGNOSTIC MAMMOGRAM 3D/2D WITH ADDITIONAL VIEWS: 02/26/2022 CLINICAL: Additional evaluation requested from prior study. Comparison is made to exams dated: 12/18/2021 mammogram, 05/11/2020 mammogram, and 05/20/2018 mammogram - [facility]. There are scattered areas of fibroglandular density in the right breast (category b / 25%-50% glandular tissue). The possible architectural distortion in the right breast middle depth central to the nipple seen on the mediolateral oblique view only is not reproduced and presumably represented superimposed breast tissue. This is not confirmed with additional views. No other significant masses or calcifications are seen in the breast. IMPRESSION: BENIGN Resolution of screening mammography abnormality with additional views. There is no mammographic evidence of malignancy. Return to annual mammogram screening schedule is recommended. Findings and recommendations were conveyed to the patient at time of exam. Based on the Tyrer Cuzick model (a risk assessment model) the patient's lifetime risk is 7.3% and her 10 year risk is 3.3%. According to the ACR, ACS, and NCCN guidelines, an annual breast MRI exam along with mammogram is recommended if the patient's lifetime risk is 20% or greater. This exam was interpreted at Station ID: [id number]. NOTE: For mammograms, a report in lay terms will be sent to the patient. Approximately 15% of breast malignancies will not be visualized mammographically. In the management of a palpable breast mass, a negative mammogram must not discourage biopsy of a clinically suspicious lesion. Electronically Signed By: Jenelle guillen/:02/26/2022 14:19:00 letter sent: Normal Exam ACR BI-RADS Category 2: Benign Finding(s) 3342F
== END ==
PROVIDERS: PCP Student in an Organized Health Care Education/Training Program; Referring Provider Student in an Organized Health Care Education/Training Program; Visit Provider Student in an Organized Health Care Education/Training Program
DX: R92.8 Other abnormal and inconclusive findings on diagnostic imaging of breast (principal)
CPT/HCPCS: 77065; G0279

== ENCOUNTER → 2022-12-08 13:57 | Outpatient (CLI) | payer MEDICARE, MEDICAID, SELFPAY ==
[2022-12-08 16:13] LABS: Alanine Aminotransferase 31 IU/L (<35); Albumin 4.4 g/dL (3.5-5.0); Albumin Globulin Ratio 1.5 (1.0-2.8); Alkaline Phosphatase 67 U/L (38-126); Aspartate Aminotransferase 27 IU/L (14-36); BUN Creatinine Ratio 36.4 (6-22); Bilirubin Total 0.3 mg/dL (0.2-1.3); Blood Urea Nitrogen 20 mg/dL (7-17); Calcium 9.7 mg/dL (8.4-10.2); Carbon Dioxide 22 mmol/L (22-32); Chloride 104 mmol/L (98-107); Cholesterol 254 mg/dL (140-199); Estimated Glomerular Filt Rate > 60 mL/min (>60); Globulin 2.9 g/dL (1.7-4.1); Glucose 129 mg/dL (80-110); HDL Cholesterol 43 mg/dL (40-60); HEMOLYSIS < 15 (0-50); LDL Cholesterol Calculated 140 mg/dL (<100); Potassium 3.8 mmol/L (3.4-5.1); Sodium 138 mmol/L (137-145); Total Protein 7.3 g/dL (6.3-8.2); Triglycerides 357 mg/dL (35-150)
== END ==
PROVIDERS: PCP Family Medicine; Referring Provider Family Medicine; Visit Provider Family Medicine
DX: E78.5 Hyperlipidemia, unspecified (principal); R73.01 Impaired fasting glucose; E66.9 Obesity, unspecified
CPT/HCPCS: 36415; 80053; 80061; 83036

== ENCOUNTER → 2023-03-27 14:09 | Outpatient (CLI) | payer MEDICARE, MEDICAID, SELFPAY ==
--- NOTE | 2023-03-27 14:10 | DI.MG.S_ITS ---
BILATERAL DIGITAL SCREENING MAMMOGRAM 3D/2D WITH CAD: 03/27/2023 CLINICAL: Routine screening. Comparison is made to exams dated: 02/26/2022 mammogram, 12/18/2021 mammogram, 05/11/2020 mammogram, and 05/20/2018 mammogram - . Both breasts are almost entirely fatty (category a/<25% glandular tissue). Current study was also evaluated with a Computer Aided Detection (CAD) system. No significant masses, calcifications, or other findings are seen in either breast. There has been no significant interval change. IMPRESSION: NEGATIVE There is no mammographic evidence of malignancy. A 1 year screening mammogram is recommended. Based on the Tyrer Cuzick model (a risk assessment model) the patient's lifetime risk is 4.7% and her 10 year risk is 2.2%. According to the ACR, ACS, and NCCN guidelines, an annual breast MRI exam along with mammogram is recommended if the patient's lifetime risk is 20% or greater. This exam was interpreted at Station ID: [id number]. NOTE: For mammograms, a report in lay terms will be sent to the patient. Approximately 15% of breast malignancies will not be visualized mammographically. In the management of a palpable breast mass, a negative mammogram must not discourage biopsy of a clinically suspicious lesion. Electronically Signed By: Titus das/cely:03/27/2023 15:00:10 letter sent: Normal Exam ACR BI-RADS Category 1: Negative 3341F
== END ==
LOC: MAMMO 14:10
PROVIDERS: PCP Family Medicine; Referring Provider Family Medicine; Visit Provider Family Medicine
DX: Z12.31 Encounter for screening mammogram for malignant neoplasm of breast (principal)
CPT/HCPCS: 77063; 77067

== ENCOUNTER → 2023-03-31 10:39 | Outpatient (CLI) | payer MEDICARE, MEDICAID, SELFPAY ==
[2023-03-31 11:41] LABS: UR Morphine/Opiate cutoff 300 Negative (Negative); Ur Creatinine Normal (Normal); Ur Specific Gravity Normal (Normal); Urine Amphetamines Negative (Negative); Urine Barbiturates Negative (Negative); Urine Benzodiazepines Negative (Negative); Urine Cocaine Negative (Negative); Urine MDMA Negative (Negative); Urine Methadone Negative (Negative); Urine Methamphetamines Negative (Negative); Urine Oxycodone Negative (Negative); Urine Phencyclidine Negative (Negative); Urine Tetrahydrocannabinol Negative (Negative); Urine Tricyclic Antidepressant Negative (Negative); Urine pH Normal (Normal)
[2023-03-31 20:20] LABS: Appearance Urine UA CLEAR; Bilirubin Urine UA NEGATIVE (NEGATIVE); Color Urine UA YELLOW; Glucose Urine UA NEGATIVE (Negative); Ketones Urine UA NEGATIVE (NEGATIVE); Leukocyte Esterase Urine UA NEGATIVE (NEGATIVE); Nitrite Urine UA NEGATIVE (Negative); Occult Blood Urine UA NEGATIVE (Negative); Protein Urine UA NEGATIVE (Negative); Urobilinogen Urine UA 0.2 E.U./dL (0.2)
== END ==
PROVIDERS: PCP Family Medicine; Referring Provider Family Medicine; Visit Provider Family Medicine
DX: F11.20 Opioid dependence, uncomplicated (principal); R30.0 Dysuria
CPT/HCPCS: 36415; 80305; 81003

== ENCOUNTER → 2023-04-17 09:25 | Outpatient (CLI) | payer MEDICARE, MEDICAID, SELFPAY ==
[2023-04-17 10:22] LABS: UR Morphine/Opiate cutoff 300 Negative (Negative); Ur Creatinine Normal (Normal); Ur Specific Gravity Normal (Normal); Urine Amphetamines Negative (Negative); Urine Barbiturates Negative (Negative); Urine Benzodiazepines Negative (Negative); Urine Cocaine Negative (Negative); Urine MDMA Negative (Negative); Urine Methadone Negative (Negative); Urine Methamphetamines Negative (Negative); Urine Oxycodone Negative (Negative); Urine Phencyclidine Negative (Negative); Urine Tetrahydrocannabinol Negative (Negative); Urine Tricyclic Antidepressant Negative (Negative); Urine pH Normal (Normal)
[2023-04-17 11:10] LABS: Ferritin 39 ng/mL (11-264)
== END ==
PROVIDERS: PCP Family Medicine; Referring Provider Family Medicine; Visit Provider Family Medicine
DX: E04.2 Nontoxic multinodular goiter (principal); L65.9 Nonscarring hair loss, unspecified; F11.20 Opioid dependence, uncomplicated
CPT/HCPCS: 36415; 80305; 82306; 82728; 84443

== ENCOUNTER → 2023-12-23 10:19 | Outpatient (CLI) | payer MEDICARE, MEDICAID, SELFPAY | PROVIDERS: PCP Registered Nurse; Visit Provider Obstetrics & Gynecology | DX: R31.9 Hematuria, unspecified (principal); R10.2 Pelvic and perineal pain | CPT/HCPCS: 87086 ==

== ENCOUNTER 2024-02-08 07:45 | Day surgery (SDC) | payer MEDICARE, MEDICAID, SELFPAY ==
[2024-02-01 12:43] VITALS: BMI 35.0
--- NOTE | 2024-02-08 | PATH_ITS ---
[facility] Accession Number: [id number] No. of containers..01 Tissue . 01 Material submitted: . vulva - VULVA . 01 Diagnosis: VULVA, BIOPSY: Final diagnosis pending outside expert consultation and will be reported as an addendum. [facility] 02/18/2024 1058 Local . 01 Comment: Initial and deeper level were examined in an effort to better define this process. A focus of granulomatous inflammation with foreign body giant cell reaction to foreign material consistent with suture is noted. PAS stain is negative for fungal hyphae. Immunohistochemical stains* using SMA, desmin, CD34, and SOX-10 markers were performed. . . * This test was developed and the performance characteristics were validated by [employer]. It has not been cleared or approved by the U.S. Food and Drug Administration. . 01 Electronically signed: . Colleen Finley MD, Dermatopathologist NPI- [id number] . 01 Gross description: . Received in formalin with two identifiers and skin of the vulva, is an irregular ellipse of presumed skin measuring 1.1 x 0.5 cm by 0.3 cm thick with an extension of soft tissue from the center of the specimen measuring 0.8 x 0.3 x 0.2 cm. The presumed skin surface is inked yellow while the remaining margins are inked blue. The specimen is serially sectioned into slices and submitted entirely as follows: A1: Tips. A2: Remaining slices. (see diagram) ([id number]) /EMMANUELLE 02/11/2024 0846 Local . 01 Pathologist provided ICD-10: D48.5 . 01 CPT . 398171, 404806, Q38806, T68301 Specimen Comment: A courtesy copy of this report has been sent to [phone] Performed at: [address] [facility], [place], [place] [id number] MD Heron Rios MD Phone: [phone]
[2024-02-08 08:12] VITALS: BP 126/74; PULSE 64; RESP 16; TEMP 36.4; O2SAT 96; BMI 35.0
[2024-02-08] MEDS: LACTATED RINGERS 1,000 ML 42 ML IV (08:26)
[2024-02-08] MEDS: ACETAMINOPHEN 325 MG TABLET 975 MG PO (08:26)
--- NOTE | 2024-02-08 09:38 | P.HPOB_ITS ---
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) Multiple thyroid nodules Diverticulosis large intestine w/o perforation or abscess w/o bleeding Atrial myxoma Balance problem Allergic rhinitis due to cat hair History of migraine (~2001) Smallpox Cholecystitis (Unknown) Plantar fasciitis (Unknown) GERD (gastroesophageal reflux disease) (Unknown) Elevated uric acid in blood Esophageal dysmotility (08/28/15) Hyperlipidemia (04/26/14) Obesity Surgical History (Updated 02/01/24 @ 13:41 by Kacey Humphries RN) History of Jorge fundoplication Hx of breast reduction, elective History of open heart surgery (11/01/18) Hx of total hysterectomy (Unknown) Hx of knee surgery (Unknown) Hx of cholecystectomy (Unknown) History of tonsillectomy Family History Mother Arthritis Social History Smoking Status: Former smoker Tobacco: How many years used: 13 second hand exposure: No alcohol intake: current substance use type: does not use Meds Home Medications and Allergies Home Medications Medication Instructions Recorded Confirmed Type calcium carbonate 600 mg-vitamin 1 cap PO DAILY 03/02/18 02/08/24 History D3 5 mcg (200 unit) capsule (Calcium 600 + D(3)) melatonin 5 mg capsule 5 mg PO BEDTIME 06/23/18 02/08/24 History ascorbic acid (vitamin C) 500 mg 500 mg PO DAILY 08/24/18 01/22/24 History chewable tablet cyanocobalamin (vitamin B-12) 1,000 mcg PO DAILY 08/24/18 02/08/24 History 1,000 mcg capsule omega 2-qpi-dvp-fish oil 1,000 mg 1 - 2 cap PO DAILY 10/27/18 01/22/24 History (120 mg-180 mg) capsule (Fish Oil) Vitamin D3 400 IU See Rx Instructions .Route .COMPLEX 12/22/18 01/22/24 History multivitamin 1 tab PO .3 TIMES A WEEK 12/22/18 02/08/24 History acetaminophen 325 mg capsule 650 mg PO Q4H PRN Pain, Moderate 05/03/19 02/08/24 History (Tylenol) fluticasone furoate 27.5 1 spray intranasal DAILY 08/04/19 02/08/24 History mcg/actuation nasal spray,suspension (Flonase Sensimist) triamcinolone acetonide 0.1 % 1 applic topical BID #30 grams 12/20/21 01/22/24 Rx topical ointment baclofen 5 mg tablet See Rx Instructions .Route 03/16/23 02/08/24 Rx .COMPLEX #30 tabs celecoxib 200 mg capsule 200 mg PO DAILY PRN pain #90 caps 03/16/23 02/08/24 Rx estradiol 0.01% (0.1 mg/gram) 0.25 g vaginal DAILY #42.5 grams 03/16/23 02/08/24 Rx vaginal cream mometasone 0.1 % topical solution 1 applic topical DAILY PRN ear 04/10/23 02/08/24 Rx pain #30 mL hydroxyzine HCl 10 mg tablet 10 mg PO BID 12/15/23 02/08/24 History nystatin-triamcinolone 100,000 topical 12/15/23 01/22/24 History unit/gram-0.1 % topical ointment triamcinolone acetonide 0.1 % 1 applic topical DAILY #30 grams 12/15/23 01/22/24 Rx topical ointment Allergies Allergy/AdvReac Type Severity Reaction Status Date / Time Sulfa (Sulfonamide Allergy Severe Possible Verified 02/08/24 08:09 Antibiotics) due to [SULFA (SULFONAMIDE Celebrex ANTIBIOTICS)] allergy fenofibrate [FENOFIBRATE] Allergy Intermediate Rash Verified 02/08/24 08:09 red yeast rice Allergy Mild Rash Verified 02/08/24 08:09 [RED YEAST RICE] external genital area adhesive AdvReac Severe REDNESS, Verified 02/08/24 08:09 ITCHING AND BLISTERS FROM ADHESIVE TAPE NSAIDS (Non-Steroidal AdvReac Severe Epigastric Verified 02/08/24 08:09 Anti-Inflamma pain - suspect ulcers allopurinol AdvReac Intermediate Vertigo Verified 02/08/24 08:09 montelukast AdvReac Intermediate SORES IN Verified 02/08/24 08:09 MY MOUTH AND NOSTRIL latex AdvReac Mild ITCHING Verified 02/08/24 08:09 CAT DANDER Allergy Intermediate ITCHY Uncoded 01/22/24 16:14 WATER EYES, CONGESTION, RUNNY NOSE Tree pollen Allergy Intermediate [place] Uncoded 01/22/24 16:14 trees - Runny/Itchy nose/Eye irritation. Exam Vital Signs (past 8 hours): - 02/08/24 08:12 Temperature 97.6 F Pulse Rate 64 Respiratory Rate 16 Blood Pressure 126/74 Pulse Oximetry 96 Oxygen Delivery Method Room Air Oxygen Delivery Method Room Air Narrative Exam Narrative: HEENT: No thyromegaly, no anterior cervical or supraclavicular lymphadenopathy. Lungs:Clear to auscultation bilaterally, no wheezes. Cardiovascular: Regular rate and rhythm, no murmurs, rubs, or gallops. Abdomen: Well-healed scars. No hepatosplenomegaly. No masses palpable. External genitalia: Erythematous area at the junction of the perineal body and introitus Vagina: Hypertrophic hymen Cervix: Deferred Bimanual exam: Deferred Extremities: No edema Assessment & Plan Assessment & Plan narrative: Assessment: 63-year-old 0 with persistent vulvar pain Hypertrophic hymen Plan: Excision of abnormal vulvar tissue Possible hymenotomy Risks, benefits, and alternatives to the procedure were explained to the patient. The risks including bleeding and infection. She understands these risks and agrees to proceed. A full par Q was held and consent form was signed. Time-Based Coding :: [TOTAL MINUTES] spent with patient and on the chart (including review of chart, obtaining history, exam, reviewing outside data, placing orders, documenting exam and treatment plan, and counseling patient) on [DATE].
--- NOTE | 2024-02-08 09:41 | PM.PREOP ---
Pre-operative Note Interval Note History & Physical reviewed/Exam performed by Physician: Yes Changes to H&P: No H&P completed within 30 days and has changed as indicated here:: 02/08/24
--- NOTE | 2024-02-08 10:15 | SUR.OPER ---
Lithotomy on padded OR bed, head on pillow, arms secured on padded arm boards at <90 degrees abduction. Legs secured in padded yellow fins stirrups.
[2024-02-08] MEDS: BUPIVACAINE 0.5% W/ EPI (PF) 30 ML VIAL INJ (10:21)
[2024-02-08 10:41] VITALS: BP 98/64; PULSE 75; RESP 18; TEMP 36.3; O2SAT 94
[2024-02-08 10:46] VITALS: BP 104/66; PULSE 69; RESP 13; O2SAT 96
[2024-02-08 10:51] VITALS: BP 107/60; PULSE 63; RESP 12; O2SAT 95
--- NOTE | 2024-02-08 10:56 | PM.GYNOP.1 ---
Operative Date/Time/Diagnoses Date of procedure: 02/08/24 Time of procedure: 10:56 Pre-op diagnosis: Persistent vulvar pain Hypertrophic hymen Post-op diagnosis: same Procedure & Clinicians Procedure: Procedures Operation Date: 02/08/24 09:30 Actual Procedure Side Surgeon p Excision of midline vulvar, excision of hyperplastic hymen Silva Pang MD Indications: 63 year old with hypertrophic hymen and persistent vulvar pain Surgeon: Silva Pang Anesthesia Type: General (LMA) and Local Operative Notes Findings: Erythematous area at the introitus. Hypertrophic hymen Closure Type: primary Specimen(s): none Estimated blood loss (mL): 5 Blood products transfused: none Procedure in detail: After informed consent was obtained, the patient was taken to the operating room where she was placed in the dorsal supine position. After adequate LMA general anesthesia was achieved, she was placed in the dorsal lithotomy position, and prepped and draped in the usual sterile fashion. A time-out was performed. 10 cc of 0.25% Marcaine with epinephrine were injected below the proposed tissue to be excised at the introitus. 4 cc of 0.25% Marcaine with epinephrine were injected around the hymenal ring. Cautery was used to open the hymen at the 5 and 7:00 a.m. positions. Cautery was used for hemostasis. Using a # 15 blade, a triangular piece of skin with underlying subcutaneous tissue was removed at the introitus with the base of the triangle at the introitus and the apex of the triangle on the perineal body. This is approximately 2 cm in length and 1 cm in width at its widest point. Cautery was used for hemostasis in the subcutaneous tissue. The skin was reapproximated using 2-0 chromic in simple interrupted sutures. Hemostasis was achieved. Sponge, lap, and instrument counts were correct x2. Patient tolerated the procedure well, and was taken to PACU in stable condition. Complications: none Post-operative Condition: stable Disposition: PACU Plan for aftercare: Home after recovery
[2024-02-08 10:58] VITALS: BP 106/63; PULSE 63; RESP 10; TEMP 36.4; O2SAT 94
== END 2024-02-08 11:28 | disposition home or self-care (01) ==
PROVIDERS: Referring Provider Obstetrics & Gynecology; Visit Provider Obstetrics & Gynecology
PROC: (CPT 56700; principal; 2024-02-08 09:30)
DX: R10.2 Pelvic and perineal pain (principal); N90.89 Other specified noninflammatory disorders of vulva and perineum; Q52.4 Other congenital malformations of vagina
CPT/HCPCS: 56700; 11422; J1100; J2250; J2405; J2704; J3010

== ENCOUNTER → 2024-03-10 15:07 | Outpatient (CLI) | payer MEDICARE, MEDICAID, SELFPAY ==
--- NOTE | 2024-03-10 15:08 | DI.RAD.S_ITS ---
PROCEDURE: XR DEXA AXIAL SKELETON INDICATIONS: OSTEOPOROSIS SCREENING COMPARISON: [facility], CR, XR DEXA AXIAL SKELETON, 08/09/2018, 10:23. FINDINGS: Lumbar Spine: Bone mineral density 1 146 g/cm2, T score 0.9, Z-score 2.7 Bone mineral density change versus baseline. 0.019, 1.7% increase. Left Femoral Neck: Bone mineral density is 0.673 g/cm2, T score -1.6 Left Hip: Bone mineral density 0.890 g/cm2, T score -0.4, Z-score 0.8. Bone mineral density change versus baseline. The 0.007, 0.8% increase Fracture Risk Calculation (when applicable): 10-year fracture risk of a major osteoporotic fracture 11 percent and of a hip fracture 1.2 percent. (T score greater or equal to -1.0 to: NORMAL) (T score from -1.1 to -2.4: OSTEOPENIA) (T score less than or equal to -2.5: OSTEOPOROSIS) IMPRESSION: Normal lumbar spine and osteopenia left femoral neck. Follow-up guidelines as follows: Osteoporosis: Consider a repeat DEXA and Vertebral Fracture Assessment (VFA) exam in 2 years or sooner if medically necessary, to reassess this patient's status. Osteopenia: Consider a repeat DEXA in 2-3 years to reassess this patient's status, or if there is a new clinical indication. Normal: Consider a repeat DEXA in 5 years or sooner, or if there is a new clinical indication. All treatment decisions require clinical judgment and consideration of individual patient factors, including patient preferences, comorbidities, previous drug use, risk factors not captured in the FRAX model (e.g., frailty, falls, vitamin D deficiency, increased bone turnover, interval significant decline in bone density ) and possible under- or over-estimation of fracture risk by FRAX. In addition, the NOF Guide recommends that FDA-approved medical therapies be considered in postmenopausal women and men age >= 50 years with a: * Hip or vertebral (clinical or morphometric) fracture * T-score of <=-2.5 at the spine or hip * Ten-year fracture probability by FRAX of >= 3% for hip fracture or >=20% for major osteoporotic fracture. Dictated by: Toney Fung M.D. on 03/11/2024 at 11:02 Approved by: Toney Fung M.D. on 03/11/2024 at 11:17
== END ==
LOC: RAD 15:08
PROVIDERS: PCP Registered Nurse; Referring Provider Registered Nurse; Visit Provider Registered Nurse
DX: Z13.820 Encounter for screening for osteoporosis (principal); Z78.0 Asymptomatic menopausal state; M85.852 Other specified disorders of bone density and structure, left thigh
CPT/HCPCS: 77080

== ENCOUNTER → 2024-03-29 14:09 | Outpatient (CLI) | payer MEDICARE, MEDICAID, SELFPAY ==
--- NOTE | 2024-03-29 14:11 | DI.MG.S_ITS ---
BILATERAL DIGITAL SCREENING MAMMOGRAM 3D/2D WITH CAD: 03/29/2024 CLINICAL: Routine screening. Comparison is made to exams dated: 03/27/2023 mammogram, 02/26/2022 mammogram, 12/18/2021 mammogram, and 05/11/2020 mammogram - [facility]. The breasts are almost entirely fatty (category a/<25% glandular tissue). Current study was also evaluated with a Computer Aided Detection (CAD) system. There are benign post operative findings in both breasts. No significant masses, calcifications, or other findings are seen in either breast. There has been no significant interval change. IMPRESSION: BENIGN There is no mammographic evidence of malignancy. A 1 year screening mammogram is recommended. Based on the Tyrer Cuzick model (a risk assessment model) the patient's lifetime risk is 4.5% and her 10 year risk is 2.2%. According to the ACR, ACS, and NCCN guidelines, an annual breast MRI exam along with mammogram is recommended if the patient's lifetime risk is 20% or greater. This exam was interpreted at Station ID: [id number]. NOTE: For mammograms, a report in lay terms will be sent to the patient. Approximately 15% of breast malignancies will not be visualized mammographically. In the management of a palpable breast mass, a negative mammogram must not discourage biopsy of a clinically suspicious lesion. Electronically Signed By: Katt Walker M.D., Ph.D. [email or web address]/[email or web address]:03/29/2024 16:32:38 letter sent: Normal Exam ACR BI-RADS Category 2: Benign
== END ==
PROVIDERS: PCP Registered Nurse; Referring Provider Registered Nurse; Visit Provider Registered Nurse
DX: Z12.31 Encounter for screening mammogram for malignant neoplasm of breast (principal); R92.313 Mammographic fatty tissue density, bilateral breasts
CPT/HCPCS: 77063; 77067

== ENCOUNTER → 2024-09-23 09:12 | Outpatient (CLI) | payer MEDICARE, MEDICAID, SELFPAY ==
--- NOTE | 2024-09-23 09:14 | DI.ECHO.S_ITS ---
[facility] : : [id number] : : [place] : : [id number] : : Phone: [phone] Echocardiogram Report + + :Name: ESME ANGEL Study Date: 09/23/2024 Height: 66 in : :[facility] ReadingLocation: Weight: 200 lb : : Gender: Female BSA: 2.0 m2 : :: 1960 Age: 63 yrs BP: 117/70 mmHg: :Reason For Study: HISTORY OF RIGHT ATRIAL MYXOMA : :Ordering Physician: RAIN, : :VAMSHI Performed By: Sivakumar Breaux : :Referring: VAMSHI RODRIGEZ : + + Interpretation Summary The left ventricle is normal in size. The ejection fraction is estimated to be 55-60%. The right ventricle is normal in size and function. Pt has HX of right atrial myxoma removal and ASD closure in 10/2018. No obvious right or left atrial mass seen. No shunt across the inter atrial septum. Septum appears to be thickened. There is moderate tricuspid regurgitation. Previously mild TR. The right ventricular systolic pressure is estimated to be at least 37 mmHg based on an estimated right atrial pressure of 3 mm Hg. Previously 22 mmHg. Procedure: A two-dimensional transthoracic echocardiogram with color flow and Doppler was performed. The study quality was technically good. Comparison is made with the echocardiogram of 12/27/2019. The patient was in normal sinus rhythm during the exam. Left Ventricle: The left ventricle is normal in size. There is normal left ventricular wall thickness. There is no thrombus. The ejection fraction is estimated to be 55-60%. There are no focal wall motion abnormalities. MV E/A: 1.0 Med Peak E' Aung: 6.3 cm/sec E/E' med: 10.7. Right Ventricle: The right ventricle is normal in size and function. Atria: The left atrium is moderately dilated. The left atrium has mildly increased in size since the prior echo exam. Right atrial size is normal. There is no Doppler evidence for an interatrial shunt. Pt has HX of right atrial myxoma removal and ASD closure in 10/2018. No obvious right or left atrial mass seen. No shunt across the inter atrial septum. Septum appears to be thickened. Mitral Valve: The mitral valve leaflets appear normal. There is no evidence of stenosis, fluttering, or prolapse. There is mild mitral regurgitation. Compared to the prior echo study, there has been no change in the severity of mitral regurgitation. Aortic Valve: The aortic valve is trileaflet. The aortic valve opens well. There is no hemodynamically significant valvular aortic stenosis. No aortic regurgitation is present. Tricuspid Valve: The tricuspid valve is normal. There is moderate tricuspid regurgitation. The right ventricular systolic pressure is estimated to be at least 37 mmHg based on an estimated right atrial pressure of 3 mm Hg. Pulmonic Valve: The pulmonic valve leaflets are thin and pliable; valve motion is normal. There is no pulmonic valvular regurgitation. Great Vessels: The aortic root is normal size. The dimensions of the ascending aorta are normal. The pulmonary artery is normal size. The IVC is of normal diameter and collapses greater than 50% with a sniff. This suggests a low right atrial pressure of 3 mm Hg. Pericardium/ Pleura There is no pericardial effusion. There is no pleural effusion. MMode/2D Measurements & Calculations LVIDd: 5.0 cm LVOT diam: 2.0 cm LVIDs: 3.3 cm Ao root diam: 2.9 cm FS: 35.3 % asc Aorta Diam: 3.5 cm EPSS: 0.61 cm Ao Arch Diam (Prox Trans): 1.6 cm IVSd: 0.84 cm LVPWd: 0.77 cm LV montero. diameter/BSA (cm/m^2): 2.5 LV sys. diameter/BSA (cm/m^2): 1.6 LA A2 area: 24.9 cm2 RA long axis: 5.1 cm LA A4 area: 26.8 cm2 RA area: 18.2 cm2 LA length (vol): 6.0 cm RA vol: 54.9 ml LA vol: 95.1 ml RA : 27.4 ml/m2 LA vol index: 47.5 ml/m2 IVC diam: 1.9 cm RVD1 (basal): 3.7 cm RVD2 (mid): 2.8 cm TAPSE: 2.0 cm Doppler Measurements & Calculations Ao V2 max: 185.9 cm/sec LVOT Max Aung: 111.9 cm/sec Ao V2 mean: 126.9 cm/sec LV V1 max P.0 mmHg Ao max P.8 mmHg LV V1 VTI: 30.2 cm Ao mean P.2 mmHg MADISYN(I,D): 2.1 cm2 Ao V2 VTI: 42.5 cm MADISYN(V,D): 1.8 cm2 sev ratio: 0.71 MADISYN indexed to BSA (cm^2/m^2): 1.1 MV E max uang: 67.2 cm/sec TR max aung: 289.5 cm/sec MV A max aung: 66.7 cm/sec TR max P.5 mmHg MV E/A: 1.0 PA V2 max: 133.0 cm/sec Med Peak E' Aung: 6.3 cm/sec PA V2 mean: 92.6 cm/sec E/E' med: 10.7 PA mean P.8 mmHg Lat Peak E' Aung: 7.3 cm/sec PA pr(Accel): 10.5 mmHg E/E' lat: 9.2 E/e' average: 10.0 MV dec time: 0.21 sec SV(LVOT): 90.8 ml Reading Physician:04:21 PM
== END ==
LOC: ECHO 09:13
PROVIDERS: PCP Registered Nurse; Referring Provider Internal Medicine Cardiovascular Disease; Visit Provider Internal Medicine Cardiovascular Disease
DX: I08.1 Rheumatic disorders of both mitral and tricuspid valves (principal); D15.1 Benign neoplasm of heart; Z87.74 Personal history of (corrected) congenital malformations of heart and circulatory system
CPT/HCPCS: 93306